=== PATIENT | male | born 1950 | race Caucasian/White ===

== ENCOUNTER 2017-08-27 09:49 | Emergency (ER) | payer MEDICARE, OTHER, SELFPAY ==
[2017-08-27 09:50] VITALS: BP 150/89; PULSE 89; RESP 18; TEMP 36.3; O2SAT 96; BMI 36.9
--- NOTE | 2017-08-27 10:20 | ED.URI ---
HPI - URI/Sore Throat General Chief Complaint: Upper Respiratory Symptoms Stated Complaint: COUGHING UP BLOOD Time Seen by Provider: 08/27/17 09:58 Source: patient Mode of arrival: ambulatory Limitations: no limitations History of Present Illness HPI Narrative: Patient presents to the emergency department today with a chief complaint of episodes of mild, small amounts of bright red flecks of blood in sputum for the past few days. He denies any chest pain or significant shortness of breath. He is not dizzy nor weak or lightheaded. MD Complaint: cough Onset (ago): day(s) Duration: intermittent Severity: mild Relieving factors: nothing Exacerbating factors: nothing Description of mucous: bloody Able to tolerate fluids by mouth: Yes Associated symptoms: denies other symptoms Treatments prior to arrival: none Related Data Home Medications Medication Instructions Recorded Confirmed [TUMERIC] #0 07/19/16 07/10/17 Previous Rx's Medication Instructions Recorded triamcinolone acetonide 1 grant TOPICAL QHS PRN #15 gm 12/05/16 tramadol 50 mg tablet 50 - 100 mg PO Q4-6H #180 tab 08/10/17 amoxicillin-pot clavulanate 1 tab PO BID #20 tab 08/27/17 [Augmentin] Allergies Allergy/AdvReac Type Severity Reaction Status Date / Time No Known Drug Allergies Allergy Verified 07/10/17 11:12 Review of Systems Review of Systems All systems reviewed & are unremarkable except as noted in HPI and below Constitutional Denies chills, Denies fever(s), Denies lethargy and Denies weakness Eyes Denies change in vision, Denies eye discharge, Denies irritation and Denies loss of vision ENT Ears, Nose, Mouth, and Throat: Denies change in voice, Denies neck pain and Denies sore throat Cardiovascular Denies chest pain, Denies irregular heart rhythm, Denies lightheadedness, Denies palpitations, Denies dyspnea, Denies dyspnea on exertion and Denies orthopnea Respiratory Denies cough, Reports hemoptysis, Denies dyspnea, Denies dyspnea on exertion and Denies wheezing Gastrointestinal Gastrointestinal: Denies abdominal pain, Denies change in bowel habits, Denies diarrhea, Denies nausea and Denies vomiting Genitourinary Denies hematuria, Denies flank pain, Denies urinary incontinence and Denies urinary urgency Musculoskeletal Denies neck pain Integumentary/Breasts Denies pruritus, Denies erythema, Denies rash and Denies wounds Neurologic Denies confusion, Denies loss of vision and Denies weakness Psychiatric Denies anxiety, Denies confusion, Denies depression, Denies homicidal ideation and Denies suicidal ideation Endocrine Denies palpitations Hematologic/Lymphatic Denies easy bruising Allergic/Immunologic Denies wheezing PFSH Social History Smoking Status: Current every day smoker Exam Narrative Exam Narrative: Pleasant 67-year-old male in no obvious distress Initial Vital Signs Initial Vital Signs: Vital Signs Temperature 97.3 F L 08/27/17 09:50 Pulse Rate 89 08/27/17 09:50 Respiratory Rate 18 08/27/17 09:50 Blood Pressure 150/89 H 08/27/17 09:50 Pulse Oximetry 96 08/27/17 09:50 Const General: cooperative and well developed Nutritional Appearance: well nourished Orientation: alert, awake, oriented x3 and not confused Eyes General: appearance normal, both eyes and all related structures Eyelids: eyelids normal Conjunctivae: conjunctivae normal Sclera: sclerae normal Pupils: PERRL EOM: EOM intact bilaterally Chest Chest: normal inspection of the chest Resp Effort & Inspection: normal respiratory effort Auscultation: diminished lung sounds and wheezes Cardio Rate: regular rate Rhythm: regular rhythm Heart Sounds: no click, no gallops, no murmurs and no rubs Pulses: normal peripheral pulses Back/Spine/Pelvis Back: No CVA tenderness Cervical Spine: cervical ROM normal and No pain with cervical ROM Thoracic/Lumbar Spine: thoracic and lumbar spine normal to inspection Neuro General: alert, oriented x3, gait normal and no focal motor deficits Speech: speech normal Course Orders Ordered: ED Orders 08/27/17 10:27 XR chest 2V Stat 08/27/17 10:55 Basic Metabolic Panel Stat Complete Blood Count AUTO DIFF Stat Prothrombin Time INR Stat Discontinued Medications Albuterol/Ipratropium (Duoneb) 3 ml INH NOW ONE Stop: 08/27/17 10:29 Last Admin: 08/27/17 10:42 Dose: 3 ml Reevaluation(s) Reevaluation #1: Extensive bedside discussion with patient about the importance of follow-up regarding his extensive smoking history and the presence of multiple nodules, raising the suspicion undiagnosed lung cancer. His chief concern is that in 10 days he wheeze for a trip for 3 months. I expressed, and stressed the importance of further evaluation prior to his departure and called his primary care provider to set up an appointment, they were looking into it but had not yet responded within the actual time. Vital Signs - 8 hr 08/27/17 09:50 Temperature 97.3 F L Pulse Rate 89 Respiratory Rate 18 Blood Pressure 150/89 H Pulse Oximetry 96 MDM - URI/Sore Throat Lab Data Result diagrams: 08/27/17 10:55 08/27/17 10:55 Lab Results 08/27/17 08/27/17 08/27/17 Range/Units 10:55 10:55 10:55 WBC 14.7 H (4.5-11.0) X10^3/uL RBC 4.52 (4.5-5.9) X10^6/uL Hgb 14.2 (13.5-17.5) g/dL Hct 42.9 (41-53) % MCV 94.8 (80-100) fL MCH 31.3 (26-34) PG MCHC 33.0 (30-36) % RDW 14.6 (11.6-14.8) % Plt Count 267 (150-400) X10^3/uL Neut % (Auto) 67.4 (50-75) % Lymph % (Auto) 19.5 L (25-40) % [place] % (Auto) 10.0 (3-14) % Eos % (Auto) 1.8 L (2-4) % Baso % (Auto) 1.3 (0-2) % Neut # (Auto) 9900 H (9629-9632) /uL PT 12.5 (10.1-12.7) SECONDS INR 1.2 (0.9-1.3) Sodium 141 (137-145) mmol/L Potassium 4.5 (3.4-5.1) mmol/L Chloride 100 (98-107) mmol/L Carbon Dioxide 35 H (22-32) mmol/L BUN 17 (9-20) mg/dL Creatinine 0.70 (0.66-1.25) mg/dL Estimated GFR > 60.0 (>60) mL/min BUN/Creatinine Ratio 24.3 H (6-22) Glucose 88 (80-110) mg/dL Calcium 9.3 (8.4-10.2) mg/dL Discharge Plan Departure Patient Disposition: Home, Self-Care Clinical Impression: Pneumonia, Multiple pulmonary nodules Discharge Date/Time: 08/27/17 12:10 Interventions: ED Discharge Assessment Last Done: 08/27/17 12:06 Instructions: DI for Pneumonia -- Adult Activity Restrictions/Additional Instructions: *You have been diagnosed with [ right lower lobe pneumonia and multiple pulmonary nodules ] *What to do: *Take medications as directed, your prescription has been electronically transmitted to [facility] in [facility] at your request *Follow up with your primary care provider AGNIESZKA to further characterize these nodules. In the setting of a smoker the concern is the possibility of lung cancer *Return to ER if you should have any new, worsening or concerning symptoms Prescriptions: New amoxicillin-pot clavulanate [Augmentin] 875-125 mg tablet 1 tab PO BID Qty: 20 RF: 0 No Action [TUMERIC] Qty: 0 RF: 0 triamcinolone acetonide 0.1 % cream 1 grant Topical QHS PRNQty: 15 RF: 2 tramadol 50 mg tablet 50 - 100 mg PO Q4-6H Qty: 180 RF: 0 Referrals: Kirsty Caballero DO [Primary Care Provider] -
--- NOTE | 2017-08-27 10:27 | DI.RAD.S_ITS ---
PROCEDURE: XR CHEST 2V INDICATIONS: SOB, hemoptysis TECHNIQUE: 2 views of the chest were acquired. COMPARISON: None. FINDINGS: Surgical changes and devices: None. Lungs and pleura: Small right-sided pleural effusion. Patchy opacity noted in the right lung base concerning for aspiration versus pneumonia. Nodules within the lungs bilaterally. Mediastinum: Mediastinal contours are normal. Heart size is normal. Bones and chest wall: No suspicious bony abnormalities. Soft tissues appear unremarkable. IMPRESSION: 1. Patchy opacity in the right lung base with small right sided pleural effusion concerning for aspiration versus pneumonia. 2. Bilateral lung nodules. Recommend CT scan of the chest with contrast when clinically feasible to exclude neoplastic process. Dictated by: Heaven Azevedo MD, PhD on 08/27/2017 at 10:56 Approved by: Heaven Azevedo MD, PhD on 08/27/2017 at 10:58
[2017-08-27] MEDS: ALBUTEROL/IPRATROPIUM 3 ML AMPUL INH (10:42)
--- NOTE | 2017-08-27 10:43 | PC.NURSE ---
lab called for draw
[2017-08-27 11:06] LABS: Add Manual Diff / Slide Review NO; Basophils Percent Auto 1.3 % (0-2); Eosinophils Percent Auto 1.8 % (2-4); Hematocrit 42.9 % (41-53); Hemoglobin 14.2 g/dL (13.5-17.5); Lymphocytes Percent Auto 19.5 % (25-40); Mean Corpuscular Hemoglobin 31.3 PG (26-34); Mean Corpuscular Volume 94.8 fL (80-100); Neutrophils Absolute Auto 9900 /uL (3000-5900); Neutrophils Percent Auto 67.4 % (50-75); Platelet Count 267 X10^3/uL (150-400); Red Blood Cell Count 4.52 X10^6/uL (4.5-5.9); Red Cell Distribution Width 14.6 % (11.6-14.8); White Blood Cell Count 14.7 X10^3/uL (4.5-11.0)
[2017-08-27 11:17] LABS: INR 1.2 (0.9-1.3); Prothrombin Time 12.5 SECONDS (10.1-12.7)
[2017-08-27 11:21] LABS: BUN Creatinine Ratio 24.3 (6-22); Blood Urea Nitrogen 17 mg/dL (9-20); Calcium 9.3 mg/dL (8.4-10.2); Carbon Dioxide 35 mmol/L (22-32); Chloride 100 mmol/L (98-107); Estimated Glomerular Filt Rate > 60.0 mL/min (>60); Glucose 88 mg/dL (80-110); HEMOLYSIS < 15 (0-50); Potassium 4.5 mmol/L (3.4-5.1); Sodium 141 mmol/L (137-145)
== END 2017-08-27 12:10 | disposition home or self-care (01) ==
PROVIDERS: Emergency Provider Emergency Medicine; PCP Family Medicine
DX: J18.9 Pneumonia, unspecified organism (principal); R91.8 Other nonspecific abnormal finding of lung field
CPT/HCPCS: 36415; 71046; 80048; 85025; 85610; 94640; 99282; 99284

== ENCOUNTER → 2017-09-06 10:09 | Outpatient (CLI) | payer MEDICARE, OTHER, SELFPAY ==
--- NOTE | 2017-09-06 10:32 | DI.CT.S_ITS ---
PROCEDURE: CT CHEST W CON INDICATIONS: lung nodule TECHNIQUE: After the administration of intravenous contrast, 5 mm thick sections acquired from the pulmonary apices to the posterior costophrenic angles. 7 mm thick coronal and sagittal MIP reformats were acquired. For radiation dose reduction, the following was used: automated exposure control, adjustment of mA and/or kV according to patient size. COMPARISON: [facility], CT, ABDOMEN/PELVIS WITH CONTRAST, 06/02/2013, 13:42. [facility], CR, XR CHEST 2V, 08/27/2017, 10:23. FINDINGS: Image quality: Excellent. Lungs and pleura: There are numerous bilateral pulmonary nodules ranging in size from several millimeters to 3.6 cm (largest mass at the lateral right lung base). There also is a malignant appearing right pleural effusion with enhancing peripheral pleural modules and subtle pleural enhancement and thickening. Central and peripheral airways are patent and normal in caliber. Mediastinum: Heart size is normal. No pericardial effusion. Definite mild to moderate mediastinal or hilar adenopathy by size criteria, involving each hilum, and the subcarinal space of the middle mediastinum, and the paratracheal space of the superior mediastinum. A hilar lymph nodes are larger on the right than the left. Thoracic aorta and central pulmonary arteries are normal in size. Esophagus is normal in caliber. No hiatal hernia. Bones and chest wall: No suspicious bony lesions. No vertebral body compression fractures. No axillary or supraclavicular adenopathy by size criteria. Thyroid gland appears normal where well visualized. Abdomen: Visualized upper abdominal solid organs appear normal on the left but there is a pattern of extensive hepatic malignancy, with multiple small and large masses, involving all hepatic segments and with the largest area of the mass measuring up to 13.6 cm at the right anterior and posterior hepatic lobes and extending to a small degree into the left medial hepatic segment peripherally. Upper abdominal bowel loops are normal in caliber. Note is made of a left adrenal mass measuring up to 1.9 cm, and several peritoneal masses the largest of which is at the anterior midline just to the left of the midline structures, ventral to the stomach. That mass measures up to 2.6 cm. IMPRESSION: 1. Extensive malignancy is present, with prominent pulmonary and hepatic metastatic disease but also evidence of a left adrenal mass and peritoneal masses partially visualized at the lower margin of this chest CT. 2. Recommend obtaining abdomen/pelvis staging CT scanning, to assist in establishing the etiology of these abnormalities and also to localize the potential safest site for biopsy. For example, if colon carcinoma is identified endoscopic biopsy would be recommended. Dictated by: James Lin M.D. on 09/06/2017 at 11:15 Approved by: James Lin M.D. on 09/06/2017 at 11:25
== END ==
PROVIDERS: PCP Family Medicine; Visit Provider Family Medicine
DX: R91.1 Solitary pulmonary nodule (principal); C78.00 Secondary malignant neoplasm of unspecified lung; C78.7 Secondary malignant neoplasm of liver and intrahepatic bile duct
CPT/HCPCS: 71260; Q9967

== ENCOUNTER → 2017-09-11 09:56 | Outpatient (CLI) | payer MEDICARE, OTHER, SELFPAY ==
[2017-09-11 11:05] LABS: Alanine Aminotransferase 88 IU/L (21-72); Albumin 3.8 g/dL (3.5-5.0); Albumin Globulin Ratio 1.1 (1.0-2.8); Alkaline Phosphatase 216 U/L (38-126); Aspartate Aminotransferase 83 IU/L (17-59); Bilirubin Total 0.8 mg/dL (0.2-1.3); Blood Urea Nitrogen 12 mg/dL (9-20); Calcium 9.3 mg/dL (8.4-10.2); Carbon Dioxide 36 mmol/L (22-32); Chloride 96 mmol/L (98-107); Estimated Glomerular Filt Rate > 60.0 mL/min (>60); Globulin 3.5 g/dL (1.7-4.1); Glucose 94 mg/dL (80-110); HEMOLYSIS < 15 (0-50); Potassium 5.3 mmol/L (3.4-5.1); Sodium 138 mmol/L (137-145); Total Protein 7.3 g/dL (6.3-8.2)
--- NOTE | 2017-09-11 11:07 | DI.CT.S_ITS ---
PROCEDURE: CT ABDOMEN PELVIS W CON INDICATIONS: Evaluatel for staging of cancer TECHNIQUE: After the administration of oral and intravenous contrast, 5 mm thick sections acquired from the diaphragms to the symphysis. 5 mm thick coronal and sagittal reformats were performed. For radiation dose reduction, the following was used: automated exposure control, adjustment of mA and/or kV according to patient size. COMPARISON: [facility], CT, IVP (ABD & PEL WWO CONTRAST), 08/16/2016, 10:16. FINDINGS: Image quality: Excellent. ABDOMEN: Lung bases: Multiple bibasilar pulmonary nodules are present, as seen on 18. The largest of the is in the right lateral costophrenic angle, measuring 40 mm. There is Heart size is normal. Solid organs: Liver is normal in size. Multiple hepatic masses are present, largest of which is in the right hepatic lobe, measuring 14.7 cm. Gallbladder is within normal limits. Biliary system is non-dilated. Pancreas enhances normally. Spleen is normal in size and enhancement. No right adrenal nodules. New left adrenal nodule measuring 18 mm. Kidneys are normal in size and enhancement, without hydronephrosis. Peritoneum and bowel: Stomach, small bowel, and colon loops are normal in caliber and wall thickness. No free fluid or air. Nodes and vessels: No retroperitoneal or mesenteric adenopathy. IVC is within normal limits. There is a 45 mm short axis infrarenal abdominal aortic aneurysm. Miscellaneous: No ventral hernias. PELVIS: Genitourinary: Multifocal micronodular thickening of the left aspect of the urinary bladder is present. Miscellaneous: No inguinal hernias or adenopathy. Bones: No suspicious bony lesions. No vertebral body compression fractures. IMPRESSION: 1. New severe hepatic and pulmonary metastatic disease. 2. Small right pleural effusion. 3. Left adrenal metastasis. 4. Nodular thickening of the left urinary bladder, possibly neoplastic. 5. Abdominal aortic aneurysm. Dictated by: Sherry Villafuerte M.D. on 09/11/2017 at 16:13 Approved by: Sherry Villafuerte M.D. on 09/11/2017 at 16:22
== END ==
PROVIDERS: PCP Family Medicine; Visit Provider Family Medicine
DX: C78.00 Secondary malignant neoplasm of unspecified lung (principal); C78.7 Secondary malignant neoplasm of liver and intrahepatic bile duct; J90 Pleural effusion, not elsewhere classified; I71.4 Abdominal aortic aneurysm, without rupture; C77.9 Secondary and unspecified malignant neoplasm of lymph node, unspecified; Z86.19 Personal history of other infectious and parasitic diseases
CPT/HCPCS: 36415; 74177; 80053; 87522; Q9967

== ENCOUNTER → 2017-09-20 10:47 | Outpatient (CLI) | payer MEDICARE, OTHER, SELFPAY ==
--- NOTE | 2017-09-20 10:49 | DI.NM.S_ITS ---
PROCEDURE: NM BONE SCAN WHOLE BODY RADIOPHARMACEUTICAL: 21.6 mCi Tc-99m MDP IV. INDICATIONS: LUNG MASS TECHNIQUE: Delayed whole-body scintigrams were obtained approximately 3-4 hours after intravenous injection of radiotracer. Anterior and posterior views were acquired from vertex to feet. COMPARISON: [facility], CT, CT ABDOMEN PELVIS W CON, 09/11/2017, 11:03. FINDINGS: There is a focal uptake in the proximal right femoral shaft. No lesions are identified in skull, sternum, clavicles, scapulae, ribs, bony pelvis, and visualized shafts of the long bones. There is increased uptake in cervical, thoracic and lumbar spine with distribution indistinguishable from degenerative disc and facet disease; early metastasis to spine could be obscured by degenerative changes. There are foci of increased periarticular activity involving shoulders bilaterally and hips bilaterally, compatible with degenerative/arthritic changes. There is tracer infiltration in the right antecubital fossa. IMPRESSION: A focal uptake in the proximal right femoral shaft, which could represent early osseous metastasis. Recommend radiographic correlation. Dictated by: Cuca Cárdenas M.D. on 09/20/2017 at 17:36 Transcribed by: KANDI on 09/20/2017 at 17:44 Approved by: Cuca Cárdenas M.D. on 09/21/2017 at 18:32
== END ==
PROVIDERS: PCP Family Medicine; Visit Provider Internal Medicine Hematology & Oncology
DX: R91.8 Other nonspecific abnormal finding of lung field (principal)
CPT/HCPCS: 78306; A9503

== ENCOUNTER → 2017-09-21 13:26 | Outpatient (CLI) | payer MEDICARE, OTHER, SELFPAY ==
--- NOTE | 2017-09-21 13:28 | DI.MRI.S_ITS ---
PROCEDURE: MR BRAIN (IAC) WWO CON INDICATIONS: LUNG MASS TECHNIQUE: Noncontrast sagittal T1 spin echo, axial FLAIR, axial gradient echo, axial diffusion and ADC through the brain. Axial thin-slice 3D CISS, coronal TruFISP, axial T1 spin echo with fat saturation through the internal auditory canals. After the administration of contrast, thin slice axial and coronal T1 spin echo with fat saturation through the internal auditory canals, and axial T1 spin echo with fat saturation through the brain. COMPARISON: , CT, CT CHEST W CON, 09/06/2017, 10:34. FINDINGS: Image quality: Excellent. Cerebellopontine angles: No cerebellopontine angle masses. Inner ear structures appear normally formed. No suspicious enhancement in the internal auditory canal or along the course of the 7th cranial nerve. CSF spaces: Ventricles are normal in size and shape. No extra-axial fluid collections. Basal cisterns are patent. Brain: No intracranial bleeds or mass effects. Langley-white matter interface is intact. No abnormal intracranial enhancement. Diffusion weighted images demonstrate no acute ischemic insults. Brainstem appears normal. Normal intravascular flow voids are present. On T1-weighted series 5/image 11, there is a 5 mm round signal loss that is indeterminate but could represent a calcified aneurysm. Skull and face: Calvarial marrow signal is normal. Orbits appear normal. Sinuses: Sinuses and mastoids are clear. IMPRESSION: 1. No evidence of metastatic brain disease. 2. No findings to suggest acoustic neurinoma. 3. Degree of volume loss is compatible with age. 4. Possibility of a 5 mm aneurysm at the right internal carotid bifurcation is considered. Noncontrast MRA imaging of the brain is recommended. Dictated by: Sourav Mirza M.D. on 09/21/2017 at 15:49 Approved by: Sourav Mirza M.D. on 09/21/2017 at 15:59
== END ==
PROVIDERS: PCP Family Medicine; Visit Provider Internal Medicine Hematology & Oncology
DX: C34.90 Malignant neoplasm of unspecified part of unspecified bronchus or lung (principal); R91.8 Other nonspecific abnormal finding of lung field
CPT/HCPCS: 70553

== ENCOUNTER → 2017-09-24 14:49 | Outpatient (CLI) | payer MEDICARE, OTHER, SELFPAY ==
[2017-09-24 16:31] LABS: INR 1.3 (0.9-1.3); Prothrombin Time 13.8 SECONDS (10.1-12.7)
[2017-09-24 16:36] LABS: Add Manual Diff / Slide Review NO; Basophils Percent Auto 1.2 % (0-2); Eosinophils Percent Auto 2.7 % (2-4); Hematocrit 37.1 % (41-53); Hemoglobin 12.3 g/dL (13.5-17.5); Lymphocytes Percent Auto 18.3 % (25-40); Mean Corpuscular HGB Conc 33.2 % (30-36); Mean Corpuscular Hemoglobin 31.2 PG (26-34); Mean Corpuscular Volume 94.1 fL (80-100); Monocytes Percent Auto 10.4 % (3-14); Neutrophils Absolute Auto 10200 /uL (3000-5900); Neutrophils Percent Auto 67.4 % (50-75); Platelet Count 234 X10^3/uL (150-400); Red Blood Cell Count 3.95 X10^6/uL (4.5-5.9); Red Cell Distribution Width 14.9 % (11.6-14.8); White Blood Cell Count 15.2 X10^3/uL (4.5-11.0)
[2017-09-24 17:17] LABS: Alanine Aminotransferase 81 IU/L (21-72); Albumin 3.6 g/dL (3.5-5.0); Alkaline Phosphatase 231 U/L (38-126); Aspartate Aminotransferase 85 IU/L (17-59); Blood Urea Nitrogen 21 mg/dL (9-20); Carbon Dioxide 32 mmol/L (22-32); Chloride 97 mmol/L (98-107); Estimated Glomerular Filt Rate > 60.0 mL/min (>60); Globulin 3.5 g/dL (1.7-4.1); Glucose 82 mg/dL (80-110); HEMOLYSIS < 15 (0-50); Potassium 4.6 mmol/L (3.4-5.1); Sodium 137 mmol/L (137-145); Total Protein 7.1 g/dL (6.3-8.2)
[2017-09-24 17:33] LABS: Lactate Dehydrogenase 2322 U/L (313-618)
[2017-09-24 17:49] LABS: Carcinoembryonic Antigen 1.1 ng/mL (0.1-3.0)
== END ==
PROVIDERS: PCP Family Medicine; Visit Provider Internal Medicine Hematology & Oncology
DX: R91.8 Other nonspecific abnormal finding of lung field (principal); C34.90 Malignant neoplasm of unspecified part of unspecified bronchus or lung; Z01.812 Encounter for preprocedural laboratory examination
CPT/HCPCS: 36415; 80053; 82378; 82728; 83615; 85025; 85610

== ENCOUNTER 2017-09-25 09:29 | Day surgery (SDC) | payer MEDICARE, OTHER, SELFPAY ==
[2017-09-25] VITALS (15 sets, daily range): BP systolic 98–140; BP diastolic 51–89; PULSE 72–84; RESP 15–18; TEMP 35.9–36.6; O2SAT 91–98
--- NOTE | 2017-09-25 | PATH_ITS ---
[facility] Accession Number: [id number] . 01 Material submitted: . RIGHT HEPATIC LOBE MASS . 01 Clinical history: . NEEDLE CORE BIOPSY . 02 Diagnosis: Liver, Right Lobe Mass, Core Needle Biopsy: Poorly differentiated malignant neoplasm. Please see comment. JRL/09/28/2017 . 02 Comment: A diagnosis of non-small cell carcinoma, is favored, however immunohistochemical stains are pending to confirm the morphologic impression. The results will be reported as an addendum. . Dr. Gorman called Dr. Avalos's office on 09/27/17. Dr. Gorman gave preliminary results to Rosi in Dr. Arboleda office on 09/28/2017. As part of routine quality nurse, Dr. Esparza and Dr. Kang also reviewed this case and agree with the diagnosis. . 02 Electronically signed: . Rosi Gorman MD, Pathologist NPI- [id number] . 01 Gross description: . Received in formalin are three core biopsies of clear colorless glistening tissue (each approximately 2.0 cm long with a diameter less than 0.1 cm). Entirely submitted intact in cassette A1. ([id number]) /MRV . 02 Pathologist provided ICD-10: C78.7 . 02 CPT . 142745 Performed at: 01 [facility] [address] [id number] MD Ari Bolivar MD Phone: [phone] Performed at: 02 [facility] [place] [address] [place], [place] [id number] MD Jassi Brooks MD Phone: [phone]
--- NOTE | 2017-09-25 10:08 | SUR.HOLD ---
PT STATES HE IS RECOVERING FROM WALKING PNEUMONIA - RIGHT LOWER LUNG, HAS TAKEN A FULL COURSE OF ANTIBIOTICS FINISHING 10 DAYS AGO. LUNG SOUNDS VERY DIMINISHED IN RIGHT LOWER LOBE, PULSE OX 93-95% ON ROOM AIR
[2017-09-25 10:49] LABS: INR 1.3 (0.9-1.3)
--- NOTE | 2017-09-25 11:42 | DI.CT.S_ITS ---
PROCEDURE: CT BIOPSY LIVER PREPROCEDURE HISTORY AND PHYSICAL EXAM: No significant changes from the oncology consult Dr. Cristopher Avalos's History and Physical exam dated 09/12/2017. Patient has multiple hepatic and pulmonary masses. INDICATIONS: LIVER MASS TECHNIQUE: The indications, alternatives, benefits, risks, and possible complications of the procedure were communicated to the patient. Informed written consent from the patient was obtained and placed in the chart. Continuous EKG and hemodynamic monitoring was started by trained personnel. The patient was brought to the CT suite and senior interior designer spiral CT imaging was performed with localization grid. The appropriate site for percutaneous access to the biopsy target was marked, was prepped and draped sterilely, and was infused with local anaesthesia. Under CT guidance, a core biopsy trocar and needle set was advanced to the biopsy target, and specimen(s) were obtained. The trocar and needle were then removed, and the patient was sent for post-procedure monitoring. COMPARISON: CT of the abdomen and pelvis with IV contrast 09/11/2017. FINDINGS: Biopsy site: Anterior right hepatic lobe hypoattenuating mass in the right upper quadrant of the abdomen. Needle: 20 gauge biopsy needle with introducer trocar. Number of passes: 4. Medications: 1% lidocaine for local anaesthesia. IV Versed for conscious sedation for 15 minutes from 11:15 AM to 11:30 AM on 09/25/17 (see nursing record). Complications: None. IMPRESSION: Successful CT-guided biopsy of the hypoattenuating mass in the anterior right hepatic lobe. Dictated by: Radhames Hooks M.D. on 09/25/2017 at 12:11 Approved by: Radhames Hooks M.D. on 09/25/2017 at 15:42
--- NOTE | 2017-09-25 11:53 | SUR.PHASEII ---
PT BACK FROM IR, REPORT FROM SHAAN LEMUS. REFUSED OFFER OF CLEAR LIQUIDS/FOOD, ICE CHIPS LEFT AT BEDSIDE.
--- NOTE | 2017-09-25 12:31 | SUR.PHASEII ---
pt resting quietly, reading his book, continues to lie on his back, weight remains on procedure site, site dressing remains clean and dry, no redness or swelling noted.
--- NOTE | 2017-09-25 14:54 | SUR.PHASEII ---
pt sitting up talking with , lab here for blood draw. pt denies any pain or discomfort, dressing remains dry and intact.
[2017-09-25 15:02] LABS: Hematocrit 37.1 % (41-53)
--- NOTE | 2017-09-25 15:18 | SUR.PHASEII ---
DR FOX NOTIFIED OF PTS HCT OF 37.1. WILL BE OVER TO SPEAK WITH PT. PT DENIES ANY PAIN OR DISCOMFORT, TOLERATING COFFEE AND SNACKS
--- NOTE | 2017-09-25 15:45 | SUR.PHASEII ---
DR FOX IN TO SEE AND SPEAK WITH PT AND HIS , OK TO D/C PT HOME PER DR FOX. INSTRUCTIONS REVIEWED WITH PT AND WITH VERBALIZED UNDERSTANDING. DRESSING CLEAN AND DRY, NO REDNESS OR SWELLING NOTED. PT D/C HOME
[2017-09-25] MEDS: MIDAZOLAM 2 MG/2 ML VIAL IV (16:49)
== END 2017-09-25 15:40 ==
LOC: OR 09:30
PROVIDERS: PCP Family Medicine; Visit Provider Internal Medicine Hematology & Oncology
PROC: BF25ZZZ Computerized Tomography (CT Scan) of Liver (ICD-10-PCS; CPT 47000; principal; 2017-09-25 10:30)
DX: C78.7 Secondary malignant neoplasm of liver and intrahepatic bile duct (principal); F17.210 Nicotine dependence, cigarettes, uncomplicated
CPT/HCPCS: 36415; 47000; 77012; 85014; 85610; 88307; 88341; 88342; J2250

== ENCOUNTER → 2017-09-27 13:22 | Outpatient (CLI) | payer MEDICARE, OTHER, SELFPAY ==
--- NOTE | 2017-09-27 13:26 | DI.RAD.S_ITS ---
PROCEDURE: XR FEMUR RT MIN 2V INDICATIONS: metastatic cancer. bone scan shows focal uptake right femur TECHNIQUE: 4 views of the femur were acquired. COMPARISON: [place], [place], [place] BONE SCAN WHOLE BODY, 09/20/2017, 14:24. FINDINGS: Bones: No fractures or dislocations. There is a 1.3 cm diameter oval radiolucency in the proximal one third of the right femoral shaft, corresponding to the focus of abnormal tracer uptake on nuclear bone scan and suspect for metastatic lesion Soft tissues: No suspicious soft tissue calcifications or masses. IMPRESSION: Lytic lesion proximal femoral diaphysis, presumed metastasis. Dictated by: Sourav Mirza M.D. on 09/27/2017 at 15:06 Approved by: Sourav Mirza M.D. on 09/27/2017 at 15:08
== END ==
PROVIDERS: PCP Family Medicine; Visit Provider Internal Medicine Hematology & Oncology
DX: R91.8 Other nonspecific abnormal finding of lung field (principal); M89.9 Disorder of bone, unspecified
CPT/HCPCS: 73552; 99213

== ENCOUNTER 2017-09-28 10:05 | Day surgery (SDC) | payer MEDICARE, OTHER, SELFPAY ==
[2017-09-28] VITALS (8 sets, daily range): BP systolic 135–182; BP diastolic 70–91; PULSE 78–93; RESP 15–20; TEMP 36.3–37.8; O2SAT 90–95; BMI 35.6
--- NOTE | 2017-09-28 | DI.RAD.S_ITS ---
PROCEDURE: XR CHEST 1V INDICATIONS: Portocatheter placement IN PACU TECHNIQUE: One view of the chest was acquired. COMPARISON: [facility], [place], XR CHEST 2V, 08/27/2017, 10:23. FINDINGS: Surgical changes and devices: Left-sided Port-A-Cath is present with distal tip projecting over the mid/distal SVC. Lungs and pleura: Increased interstitial pulmonary markings are present. There is blunting the costophrenic angles bilaterally, right greater than left. Mediastinum: Mediastinal contours appear normal. Heart size is normal. Bones and chest wall: No suspicious bony lesions. Overlying soft tissues appear unremarkable. IMPRESSION: Significantly increased pulmonary vascularity with effusions consistent with edema. Developing airspace disease such as pneumonia/atelectasis cannot be excluded. Dictated by: Gabbie Jennings M.D. on 09/28/2017 at 12:44 Approved by: Gabbie Jennings M.D. on 09/28/2017 at 13:03
[2017-09-28] MEDS: LACTATED RINGERS 1,000 ML 42 ML IV (10:15)
--- NOTE | 2017-09-28 11:17 | PM.HP.1 ---
History of Present Illness Date Patient Seen: 09/28/17 Time Patient Seen: 11:17 Chief complaint: [id number] PORTACATH PLACEMENT Narrative: Patient is a 67 yo male with metastatis likely lung ca. Pending biospy results from liver. Referred from Dr Avalos for single lumen portocath. Seen yesterday in clinic, no changes in PM,S,Meds,social history. Patient History Family & Social History Social History: household members spouse Tobacco & Substance use: Smoking Status Former smoker Substance Use Type does not use Meds Home Medications Medication Instructions Recorded Confirmed Type [TUMERIC] 1 tab PO QAM #0 07/19/16 09/12/17 History azithromycin 250 mg tablet See Label Instructions PO .COMPLEX 09/07/17 09/25/17 Rx #6 tab tramadol 50 mg tablet 50 - 100 mg PO Q4-6H #180 tab 09/07/17 09/27/17 Rx amoxicillin-pot clavulanate 09/25/17 History triamcinolone acetonide 1 grant TOPICAL QHS PRN 09/25/17 History Allergies Allergy/AdvReac Type Severity Reaction Status Date / Time No Known Drug Allergies Allergy Verified 09/27/17 12:54 Review of Systems Review of Systems All systems reviewed & are unremarkable except as noted in HPI and below Exam Vital Signs (past 8 hours): - 09/28/17 10:24 Temperature 97.4 F L Pulse Rate 83 Respiratory Rate 16 Blood Pressure 138/83 H Pulse Oximetry 93 Oxygen Delivery Method Heated High Flow Narrative Exam Narrative: Pleaant interactive seen with Jennifer his Lungs clear CV reg Abdo soft CHUNG Objective Labs Labs: Labs reviewed Platelets normal Assessment & Plan Plan: Assessment/Plan Narrative: R handed male with need for single lumen port for chemotherapy. Confirmed risks and benefits. Plan to keep dry with sterile bandage for 2-3 days. R sided placement only if not able to place on left. NO bathing or submersion in pool or swimming for 2 weeks. He has pain meds at home.
--- NOTE | 2017-09-28 11:23 | P.OP_ITS ---
Operative Date/Time/Diagnoses Date of procedure: 09/28/17 Time of procedure: 12:21 Pre-op diagnosis: Metastatic carcinoma Post-op diagnosis: same Procedure & Clinicians Procedure: Placement of single lumen portocath in left internal jugular vein with ultrasound guidance. Surgeon: Perry Dorsey Click Yes if Unassisted: No Anesthesia Type: General Operative Notes Findings: Standard single lumen portocath placed into IJ with ultrasound guidance and flouroscopic guidance. Fluoro showed catheter going into R IJ and with compression of R IJ and re-feed of wire, the catheter was directed into the cavoatrial junction. Closure Type: primary Specimen(s): none sent Implants & Drains: Portocatheter Applied: catheter Estimated Blood Loss (mL): 15 Blood products transfused: none Procedure in detail: After informed consent was obtained with the patient and his including but not limited to risks of pneumothorax, bleeding, injury to the veins or arteries including the carotid artery infection and the signs and symptoms of infection the need to return for immediate removal of Port-A- Cath or antibiotics as well as postoperative care of the Port-A-Cath and keeping the area clean and dry. The patient was taken to the operating room where he was positioned on the operating room table and underwent LMA anesthesia. Safety time-out was completed. Local anesthetic was infiltrated after appropriate anatomic marking of the left neck region in the left arm had been tucked and the head was turned to the right. Using ultrasound guidance the left internal jugular vein was identified and a 25 gauge needle was used to access the vein this needle was removed and an 18 gauge needle was placed into the vein under ultrasound guidance and guide wire was then placed into the internal jugular vein and confirmed in appropriate position with fluoroscopy and the needle was removed. Two finger breaths below the clavicle a 4 cm incision was made transversely and subcutaneous pocket was created for the port. The catheter was now tunneled from the pocket using the included tunneler up above the clavicle to the exit site of the wire. This was kept off the skin and held in place. Under fluoroscopic guidance the dilator was now placed and subsequently the break- away sheath was placed into the left internal jugular vein and the catheter was fed into the internal jugular vein having been previously flushed with saline. Under fluoroscopy the catheter was now seen going up the right internal jugular vein despite multiple position maneuvers. Multiple attempts to have the catheter for go down towards the cavoatrial junction were not successful. I then pulled the catheter out of the pocket back to the wire exit site and refed the wire down the catheter. I then asked the anesthesiologist to occlude the right internal jugular vein which allowed us to feed the wire and catheter combination down the cavoatrial junction. I then removed the wire and confirmed that the catheter had in fact stayed down toward the cavoatrial junction. I then placed the tunneler retrograde back up towards the catheter and re-tunneled the catheter back to the pocket and affixed the port and placed the port into the subcutaneous pocket. The port and the catheter with and checked for excellent flush and draw and were then flushed with heparin saline. 3-0 Vicryl was then used in a running fashion to close the Port-A-Cath pocket. 4 -0 Biosyn was used to close the skin in a running fashion with skin glue used on the skin single interrupted suture was used at the access site at the IJ and skin glue was also used to seal the skin there are no complications the patient tolerated the procedure well chest x-ray in the PACU showed no evidence of pneumothorax or hemothorax with good placement of the port and the catheter at the cavoatrial junction. Complications: none Condition: stable Disposition: PACU Plan for aftercare: home with appropriate instructions Follow up with Dr Avalos. OK to use the Port CXR was normal.
[2017-09-28] MEDS: CEFAZOLIN 2 GM/100 ML FROZ.PIGGY IV (11:31)
[2017-09-28] MEDS: HEPARIN 5,000 UNIT, SODIUM CHLORIDE 0.9% 50 ML IV (12:11)
[2017-09-28] MEDS: BUPIVACAINE 0.25% W/ EPI VIAL 50 ML INJ (12:12)
== END 2017-09-28 13:20 | disposition home or self-care (01) ==
PROVIDERS: PCP Family Medicine; Visit Provider Surgery
PROC: (CPT 36561; principal; 2017-09-28 11:15)
DX: Z45.2 Encounter for adjustment and management of vascular access device (principal)
CPT/HCPCS: 36561; 71045; 76000; 93005; C1788; J0690; J1644; J2405; J2704; J3010

== ENCOUNTER 2017-11-25 08:27 | Emergency (ER) | payer MEDICARE, OTHER, SELFPAY ==
[2017-11-25] VITALS (25 sets, daily range): BP systolic 107–141; BP diastolic 52–90; PULSE 91–102; RESP 16–35; TEMP 36.4–37.1; O2SAT 89–100
--- NOTE | 2017-11-25 09:20 | ED_ITS ---
HPI - GI Bleed General Chief complaint: Abdominal Pain Stated complaint: RECTAL BLEEDING, EDEMA Time Seen by Provider: 11/25/17 09:05 Source: patient and family () Limitations: no limitations History of Present Illness HPI Narrative: This is a 67-year-old gentleman who comes to the emergency department with complaint of fatigue, weakness, shortness of breath, rectal bleeding and swelling in his lower extremities. 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 He had his last chemo treatment about 4 days ago. The prior treatment he had similar symptoms and had rectal bleeding, he ended up receiving blood which improved his symptoms significantly and his bleeding had stopped. It sounds like his platelets and his blood count were both low at that time. Patient states that this is about the same time frame is his last chemo. I he noticed bright red blood in his stool this morning. it did make the water in the toilet completely red but he could see through the water. He did not see any clots. Has not had any syncope , he does feel like he has a lot slower moving around. He is not really having any chest pain or pressure. He has had a little bit of abdominal pain but not severe. He has had nausea but no vomiting. His nausea is typical with his current treatments. He has not had any fevers. He has had increased swelling and Dr. Vance his oncologist gave him Lasix which did help. Related Data Home Medications Medication Instructions Recorded Confirmed triamcinolone acetonide 1 grant TOPICAL QHS PRN 09/25/17 11/14/17 polyethylene glycol 3350 [Miralax] 1.5 g/kg PO DAILY 11/14/17 11/14/17 Cbd Cannibus 1 constantine PO 3-4XD PRN 11/21/17 11/21/17 Previous Rx's Medication Instructions Recorded ondansetron [Zuplenz] 8 mg PO Q8-12H PRN 30 Days #20 ea 10/31/17 trazodone 100 mg PO ONCE HS PRN 30 Days #30 10/31/17 tab tramadol 50 mg tablet 50 - 100 mg PO Q4-6H #180 tab 11/02/17 tramadol 50 mg PO Q4-6H PRN 30 Days #240 tab 11/06/17 furosemide 40 mg PO DAILY 30 Days #30 tab 11/21/17 Allergies Allergy/AdvReac Type Severity Reaction Status Date / Time No Known Drug Allergies Allergy Verified 09/27/17 12:54 Review of Systems Review of Systems All systems reviewed & are unremarkable except as noted in HPI and below Constitutional Reports fatigue and Denies fever(s) Cardiovascular Denies chest pain, Denies syncope, Reports edema (b/l lower extremities), Denies irregular heart rhythm, Denies lightheadedness, Denies palpitations, Denies dyspnea, Reports dyspnea on exertion and Denies orthopnea Respiratory Denies cough, Denies dyspnea, Reports dyspnea on exertion and Denies wheezing Gastrointestinal Gastrointestinal: Reports abdominal pain, Denies melena, Reports hematochezia, Denies change in bowel habits, Denies diarrhea, Reports nausea and Denies vomiting Genitourinary Denies hematuria, Denies flank pain, Denies urinary incontinence, Denies urinary urgency and Denies other (hematuria) Neurologic Denies syncope Endocrine Reports fatigue and Denies palpitations Hematologic/Lymphatic Reports as per HPI Allergic/Immunologic Denies wheezing [facility] Social History household members: spouse Smoking Status: Former smoker Exam Initial Vital Signs Initial Vital Signs: Vital Signs Temperature 98.4 F 11/25/17 08:30 Pulse Rate 102 H 11/25/17 08:30 Respiratory Rate 18 11/25/17 08:30 Blood Pressure 135/81 11/25/17 08:30 Pulse Oximetry 96 11/25/17 08:30 Const General: cooperative, well developed, No diaphoretic and other ( Pale) Nutritional Appearance: well nourished and obese Orientation: alert, awake, oriented x3 and not confused Eyes Conjunctivae: conjunctivae normal ( no conjunctival pallor) Chest Chest: normal inspection of the chest ( the patient does have a port on the left side of his chest) Resp Effort & Inspection: normal respiratory effort, able to speak in complete sentences, no respiratory distress and no use of accessory muscles Auscultation: clear to auscultation bilaterally, no rales, no rhonchi and no wheezes Cardio Rate: regular rate Rhythm: regular rhythm Heart Sounds: no click, no gallops, no murmurs and no rubs Pulses: normal peripheral pulses GI Inspection: non-distended Palpation: soft, no hepatosplenomegaly, No guarding, No pulsatile mass and No tender Auscultation: normal bowel sounds Skin General: No ecchymosis, No petechiae and pallor Neuro General: alert, oriented x3, gait normal and no focal motor deficits Cranial Nerves: CN's II-XI intact bilaterally Cognition: normal cognition Speech: speech normal Extrem Right lower extremity: edema Details: 2+ Left lower extremity: edema Details: 2+ Course Orders Ordered: ED Orders 11/25/17 12:07 Urine Microscopic Stat Discontinued Medications Furosemide (Lasix) 40 mg IV NOW ONE Stop: 11/25/17 11:00 Last Admin: 11/25/17 11:33 Dose: 40 mg Ondansetron HCl (Zofran) 4 mg IV NOW ONE Stop: 11/25/17 09:21 Last Admin: 11/25/17 09:46 Dose: 4 mg Pantoprazole Sodium (Protonix) 40 mg IV NOW ONE Stop: 11/25/17 09:21 Last Admin: 11/25/17 09:46 Dose: 40 mg Consultations Consultation #1: Dr. Hernandez from Oncology discussed patient's lab changes, his vital signs have been appropriate here and he does not seem to be in cardiac failure or respiratory failure. He states that if everything continues to go well after the 2 units of packed red blood cells in the department they can follow up with him tomorrow in the office here in [place]. He asked that the patient calls in the morning 1st thing to set up an exact time. Time: 11:27 Vital Signs - 8 hr 11/25/17 11:12 11/25/17 11:30 11/25/17 11:47 Temperature 98.3 F Pulse Rate 93 H 93 H 92 H Respiratory Rate 29 H 26 H 18 Blood Pressure 122/68 Blood Pressure [Left Arm] 117/69 122/68 Pulse Oximetry 100 99 11/25/17 11:55 11/25/17 12:00 11/25/17 12:03 Temperature 98.6 F Pulse Rate 94 H 92 H 91 H Respiratory Rate 20 29 H 26 H Blood Pressure 120/70 Blood Pressure [Left Arm] 124/74 141/79 H Pulse Oximetry 98 100 11/25/17 12:15 11/25/17 12:30 11/25/17 13:00 Temperature 98.1 F 98.6 F Pulse Rate 97 H 96 H 95 H Respiratory Rate 24 26 H 26 H Blood Pressure Blood Pressure [Left Arm] 136/72 122/64 121/72 Pulse Oximetry 98 99 11/25/17 13:54 11/25/17 13:55 11/25/17 14:30 Temperature 98.5 F Pulse Rate 98 H 94 H Respiratory Rate 26 H 30 H Blood Pressure Blood Pressure [Left Arm] 107/52 L 122/68 Pulse Oximetry 89 L 97 98 11/25/17 14:36 11/25/17 14:56 11/25/17 15:05 Temperature 98.6 F 98.6 F Pulse Rate 96 H 97 H 93 H Respiratory Rate 24 24 28 H Blood Pressure 122/68 112/68 Blood Pressure [Left Arm] 122/68 Pulse Oximetry 99 11/25/17 15:10 11/25/17 15:11 11/25/17 16:01 Temperature 98.7 F 97.5 F L Pulse Rate 96 H 94 H 97 H Respiratory Rate 26 H 28 H 24 Blood Pressure 119/65 118/66 120/90 Blood Pressure [Left Arm] Pulse Oximetry 11/25/17 16:03 11/25/17 16:30 11/25/17 17:00 Temperature 98.6 F Pulse Rate 96 H 92 H 96 H Respiratory Rate 25 H 35 H Blood Pressure 113/56 L Blood Pressure [Left Arm] 120/90 126/69 115/60 Pulse Oximetry 94 98 92 11/25/17 17:09 11/25/17 17:13 11/25/17 18:08 Temperature 98.7 F 98.6 F Pulse Rate 97 H 96 H 91 H Respiratory Rate 30 H 32 H 16 Blood Pressure 113/56 L 114/67 Blood Pressure [Left Arm] 115/60 Pulse Oximetry 92 94 MDM - GI Bleed Lab Data Attestation: I reviewed the patient's lab results. Result diagrams: 11/25/17 09:30 11/25/17 09:30 Lab Results 11/25/17 11/25/17 11/25/17 Range/Units 09:30 09:30 09:30 WBC 2.8 L (4.5-11.0) X10^3/uL RBC 2.26 L (4.5-5.9) X10^6/uL Hgb 7.5 L (13.5-17.5) g/dL Hct 22.7 L (41-53) % MCV 100.4 H (80-100) fL MCH 33.1 (26-34) PG MCHC 33.0 (30-36) % RDW 21.5 H (11.6-14.8) % Plt Count 95 L (150-400) X10^3/uL Neut % (Auto) 54.1 (50-75) % Lymph % (Auto) 36.4 (25-40) % [place] % (Auto) 5.6 (3-14) % Eos % (Auto) 3.1 (2-4) % Baso % (Auto) 0.8 (0-2) % Neut # (Auto) 1500 L (1785-6641) /uL RBC Morphology Not Reportable Hypochromasia 2+ H Anisocytosis 2+ H PT 17.7 H (10.1-12.7) SECONDS INR 1.6 H (0.9-1.3) APTT 30 (26.4-36.2) SECONDS Sodium 138 (137-145) mmol/L Potassium 3.8 (3.4-5.1) mmol/L Chloride 95 L (98-107) mmol/L Carbon Dioxide 39 H (22-32) mmol/L BUN 25 H (9-20) mg/dL Creatinine 0.50 L (0.66-1.25) mg/dL Estimated GFR > 60.0 (>60) mL/min BUN/Creatinine Ratio 50.0 H (6-22) Glucose 100 (80-110) mg/dL Calcium 7.5 L (8.4-10.2) mg/dL Total Bilirubin 2.3 H (0.2-1.3) mg/dL AST 26 (17-59) IU/L ALT 45 (21-72) IU/L Alkaline Phosphatase 113 (38-126) U/L Troponin I (0.01-0.034) ng/mL Total Protein 5.3 L (6.3-8.2) g/dL Albumin 2.2 L (3.5-5.0) g/dL Globulin 3.1 (1.7-4.1) g/dL Albumin/Globulin Ratio 0.7 L (1.0-2.8) Urine RBC (0-5/HPF) Urine WBC (0-5/HPF) Urine Bacteria (None) Hyaline Casts (None) Urine Mucus (Negative) Ur Culture Indicated? Micro UA Comment Blood Type Antibody Screen Crossmatch 11/25/17 11/25/17 11/25/17 Range/Units 09:30 09:30 12:07 WBC (4.5-11.0) X10^3/uL RBC (4.5-5.9) X10^6/uL Hgb (13.5-17.5) g/dL Hct (41-53) % MCV (80-100) fL MCH (26-34) PG MCHC (30-36) % RDW (11.6-14.8) % Plt Count (150-400) X10^3/uL Neut % (Auto) (50-75) % Lymph % (Auto) (25-40) % [place] % (Auto) (3-14) % Eos % (Auto) (2-4) % Baso % (Auto) (0-2) % Neut # (Auto) (6739-6540) /uL RBC Morphology Hypochromasia Anisocytosis PT (10.1-12.7) SECONDS INR (0.9-1.3) APTT (26.4-36.2) SECONDS Sodium (137-145) mmol/L Potassium (3.4-5.1) mmol/L Chloride (98-107) mmol/L Carbon Dioxide (22-32) mmol/L BUN (9-20) mg/dL Creatinine (0.66-1.25) mg/dL Estimated GFR (>60) mL/min BUN/Creatinine Ratio (6-22) Glucose (80-110) mg/dL Calcium (8.4-10.2) mg/dL Total Bilirubin (0.2-1.3) mg/dL AST (17-59) IU/L ALT (21-72) IU/L Alkaline Phosphatase (38-126) U/L Troponin I < 0.012 (0.01-0.034) ng/mL Total Protein (6.3-8.2) g/dL Albumin (3.5-5.0) g/dL Globulin (1.7-4.1) g/dL Albumin/Globulin Ratio (1.0-2.8) Urine RBC None seen (0-5/HPF) Urine WBC 0-1/hpf (0-5/HPF) Urine Bacteria None seen (None) Hyaline Casts 1-5/lpf (None) Urine Mucus 1+ H (Negative) Ur Culture Indicated? Cult not indicated Micro UA Comment Not Reportable Blood Type O Positive Antibody Screen Negative Crossmatch See Detail Urine Dip Bedside Urine Glucose Negative Bedside Urine Bilirubin + 1 Bedside Urine Ketone - Negative Urine Specific [place] 1.020 Bedside Urine Occult Blood +/- Bedside Urine pH 6.0 Bedside Urine Protein +/- 15 Bedside Urine Urobilinogen 2+ 4mg Bedside Urine Nitrite - Negative Bedside Urine Leukocytes - Negative Esterase Imaging Data Chest x-ray: Radiologist's impression: Vance Duffy 67 M 1950 Allergy/Adv: No Known Drug Allergies CLOSE Chest X-Ray (Signed) Heaven Azevedo - 11/25/17 Chest X-Ray (Signed) Gabbie Jennings - 09/28/17 Femur X-Ray (Signed) Sourav Mirza - 09/27/[address] (Signed) Radhames Hooks - 09/25/17 MRI Orbit/Face/Neck/IAC (Signed) Sourav Mirza - 09/21/17 Bone Scan Nuclear Medicine (Signed) Lewis Cárdenas - 09/20/17 Abdomen/Pelvis CT (Signed) Sherry Villafuerte - 09/11/[address] (Signed) James Lin - 09/06/17 Chest X-Ray (Signed) Heaven Azevedo - 08/27/17 View Report History [address] [address] XRay Report Signed Patient: Vance Duffy MR#: [id number] : 1950 Acct:[id number] Age/Sex: 67 / M Date of Service: 11/25/17 Loc: Accession Number: [id number] Procedure: XR chest 1V Ordering Provider: Gosia Diaz D.O. PROCEDURE: XR CHEST 1V INDICATIONS: rectal bleeding, b/l leg edema, sob, on chemo biliary ca TECHNIQUE: One view of the chest was acquired. COMPARISON: Outside Film, CT, CT CHEST ABDOMEN PELVIS WITH/WITHOUT CONTRAST, , 15:16. [facility], CR, XR CHEST 1V, 09/28/2017, 12:33. FINDINGS: Surgical changes and devices: Right chest wall Port-A-Cath. Lungs and pleura: No pneumothorax. Numerous bilateral lung nodules compatible with known metastatic disease. Small right-sided pleural fluid collection noted. Mediastinum: Mediastinal contours appear normal. Heart size is normal. Bones and chest wall: No suspicious bony lesions. Overlying soft tissues appear unremarkable. IMPRESSION: Small right-sided pleural fluid collection. Multiple pulmonary nodules compatible with no metastatic disease. Dictated by: Heaven Azevedo MD, PhD on 11/25/2017 at 10:48 Approved by: Heaven Azevedo MD, PhD on 11/25/2017 at 10:49 ECG Data Attestation: I personally reviewed and interpreted this ECG as follows: Interpretation: sinus rhythm with sinus arrhythmia, rate of 94, P are 136, [place] 131 and QTC of 452. patient has what appears to be a right bundle branch block. MDM Narrative Medical decision making narrative: Patient's hemoglobin has once again dropped. He had rectal bleeding previously. With or status post is chemo. We discussed if they have talked about evaluating him for the exact source which he states they have not pursued all we discussed observation but patient would prefer to return home today. We did set up follow-up tomorrow with Oncology, he received 2 units of blood and is feeling much better. His oxygenation improved as well as Um his color and symptoms. Patient done recheck did not have any crackles or difficulty breathing or shortness of breath after the blood. He did receive Lasix in between and has Lasix at home and was encouraged to reach start her/continue of tomorrow unless he felt like he was more swollen his lower extremities today and then to take a dose this evening. Patient I discussed also signs and symptoms to watch for and reasons to return this evening. Discharge Plan Departure Patient Disposition: Home Clinical Impression: Rectal bleed, Anemia Discharge Date/Time: 11/25/17 18:12 Interventions: ED Discharge Assessment Last Done: 11/25/17 18:08 Activity Restrictions/Additional Instructions: Call 1st thing in the morning to the Oncology Center to set up a time for follow-up tomorrow with Dr. Hernandez with Oncology. He is aware your here in the department and would like to see you tomorrow to recheck blood count and make sure that you are continuing to improve. If you are able to set up follow up with Dr. Vance your oncologist tomorrow this is an option. You need to have your hemoglobin/blood count rechecked tomorrow. Return to the emergency department for fevers greater than 100.4F, new shortness of breath, chest pain, new weakness or abdominal pain. If you are having increasing rectal bleeding, lightheadedness syncope or presyncope/ passing out. Prescriptions: No Action tramadol 50 mg tablet 50 - 100 mg PO Q4-6H Qty: 180 RF: 0 triamcinolone acetonide 0.1 % cream 1 grant Topical QHS PRN (Reason: ITCHY) RF: 0 trazodone 100 mg Tablet 100 mg PO ONCE HS PRN (Reason: Sleep) 30 Days Qty: 30 RF: 0 ondansetron [Zuplenz] 4 mg Film 8 mg PO Q8-12H PRN (Reason: Nausea) 30 Days Qty: 20 RF: 3 tramadol 50 mg Tablet 50 mg PO Q4-6H PRN (Reason: Pain, Moderate) 30 Days Qty: 240 RF: 0 polyethylene glycol 3350 [Miralax] 17 gram/dose Powder 1.5 g/kg PO DAILY RF: 0 Cbd Cannibus lozenge 1 constantine PO 3-4XD PRN (Reason: Pain (Scale Score 4-6)) RF: 0 furosemide 40 mg Tablet 40 mg PO DAILY 30 Days Qty: 30 RF: 1
[2017-11-25] MEDS: ONDANSETRON 4 MG/2 ML INJ IV (09:46)
[2017-11-25] MEDS: PANTOPRAZOLE 40 MG VIAL IV (09:46)
[2017-11-25 09:48] LABS: Eosinophils Percent Auto 3.1 % (2-4); Hemoglobin 7.5 g/dL (13.5-17.5); Red Cell Distribution Width 21.5 % (11.6-14.8); White Blood Cell Count 2.8 X10^3/uL (4.5-11.0)
[2017-11-25 09:55] LABS: INR 1.6 (0.9-1.3); Prothrombin Time 17.7 SECONDS (10.1-12.7)
[2017-11-25 09:57] LABS: PTT Partial Thromboplastin Tim 30 SECONDS (26.4-36.2)
[2017-11-25 09:59] LABS: Add Manual Diff / Slide Review NO; Alanine Aminotransferase 45 IU/L (21-72); Albumin 2.2 g/dL (3.5-5.0); Albumin Globulin Ratio 0.7 (1.0-2.8); Alkaline Phosphatase 113 U/L (38-126); Aspartate Aminotransferase 26 IU/L (17-59); Basophils Percent Auto 0.8 % (0-2); Bilirubin Total 2.3 mg/dL (0.2-1.3); Blood Urea Nitrogen 25 mg/dL (9-20); Calcium 7.5 mg/dL (8.4-10.2); Chloride 95 mmol/L (98-107); Estimated Glomerular Filt Rate > 60.0 mL/min (>60); Globulin 3.1 g/dL (1.7-4.1); Glucose 100 mg/dL (80-110); HEMOLYSIS < 15 (0-50); Hematocrit 22.7 % (41-53); Lymphocytes Percent Auto 36.4 % (25-40); Mean Corpuscular Hemoglobin 33.1 PG (26-34); Mean Corpuscular Volume 100.4 fL (80-100); Monocytes Percent Auto 5.6 % (3-14); Neutrophils Absolute Auto 1500 /uL (3000-5900); Neutrophils Percent Auto 54.1 % (50-75); Platelet Count 95 X10^3/uL (150-400); Potassium 3.8 mmol/L (3.4-5.1); Red Blood Cell Count 2.26 X10^6/uL (4.5-5.9); Sodium 138 mmol/L (137-145); Total Protein 5.3 g/dL (6.3-8.2)
[2017-11-25 10:11] LABS: Carbon Dioxide 39 mmol/L (22-32)
[2017-11-25 10:14] LABS: Troponin I < 0.012 ng/mL (0.01-0.034)
[2017-11-25 10:27] LABS: Anisocytosis 2+; Hypochromasia 2+
--- NOTE | 2017-11-25 10:38 | PC.NURSE ---
Late Entry at 0930-Port a cath on L chest access using sterile technique. Attempted 2x due to first attempt not getting blood return after 4ml. Pt tolerated well and obtained all blood samples for cbc, chem, bld cultures x1, lactic acid, T&S. Site flushes well and used 20G 1.25 inch length.
--- NOTE | 2017-11-25 10:44 | PC.NURSE ---
Late Entry at 1000-o2 by NC provided at 2L due to pt's o2 sat at 90% in RA, Shortly after o2 sat improved to 97-98%.
[2017-11-25] MEDS: FUROSEMIDE 40 MG/4 ML VIAL IV (11:33)
--- NOTE | 2017-11-25 11:55 | PC.NURSE ---
Late entry@0930-Assumed care of pt. pt resting in bed with spouse at bedside. Noticed pale/jaundice in the face with distended abdomen. C/o feeing weak, denies abd pain, sob with mild exertion. Recently dx with biliary CA. Pt non-o2 dependent at home. Pt has been getting transfusion d/t low blood counts and currently getting chemo therapy which has been taken a toll in his body. +thrush in the tongue, mild crackels to bilateral lobes with diminished breath sounds. +3 edema to bilateral legs. no tender to palpate in abd, no guarding.
[2017-11-25 12:19] LABS: Bacteria Urine None Seen; RBC Urine None Seen (0-5/HPF)
[2017-11-25 12:28] LABS: WBC Urine 0-1/HPF (0-5/HPF)
[2017-11-25 12:29] LABS: Culture Indicated Urine Cult Not Indicated; Hyaline Casts Urine 1-5/LPF; Mucus Urine 1+ (Negative)
--- NOTE | 2017-11-25 14:39 | PC.NURSE ---
Please see VS notes as TAR VS.
--- NOTE | 2017-11-25 14:41 | PC.NURSE ---
Completed 1st bag of PRBC transfusion w/o problems.
--- NOTE | 2017-11-25 14:43 | PC.NURSE ---
Found pt w/o oxygen at times and noted desat to 89% in RA.
--- NOTE | 2017-11-25 14:59 | PC.NURSE ---
2nd unit of PRBC tranfusion began after verifying it with 2nd RN-MARIAH Gallego. Pt reports breathing better and feeling much better at this time. Facial color improved from pale/jaundice.
--- NOTE | 2017-11-25 17:06 | PC.NURSE ---
Dc'd O2 by NC to eval O2 on RA. Pt reports feeling much better.
--- NOTE | 2017-11-25 17:10 | TAR.TRANSNT ---
Completed 2nd unit of PRBC transfusion as ordered. Pt reports feeling much better at this time. Will continue to monitor pt's RA o2 sat.
== END 2017-11-25 18:12 | disposition home or self-care (01) ==
PROVIDERS: Emergency Provider Emergency Medicine; PCP Family Medicine
DX: K62.5 Hemorrhage of anus and rectum (principal); D64.9 Anemia, unspecified
CPT/HCPCS: 36430; 71045; 80053; 81003; 81015; 84484; 85025; 85610; 85730; 86850; 86900; 86901; 93005; 96374; 96375; 99285; P9016; C9113; J1940; J2405

== ENCOUNTER → 2017-11-29 10:28 | Outpatient (CLI) | payer MEDICARE, OTHER, SELFPAY ==
--- NOTE | 2017-11-29 10:32 | DI.CT.S_ITS ---
PROCEDURE: CT CHEST ABD PEL W CON INDICATIONS: Malignant neoplasm TECHNIQUE: After the administration of oral and intravenous contrast, 5 mm thick sections acquired from the lung apices to the symphysis. 5 mm coronal and sagittal reformats were performed, with additional 7 mm coronal MIP reformats through the lungs. For radiation dose reduction, the following was used: automated exposure control, adjustment of mA and/or kV according to patient size. COMPARISON: Outside Film, CT, CT CHEST ABDOMEN PELVIS WITH/WITHOUT CONTRAST, 10/17/2017, 15:16. FINDINGS: Image quality: Excellent. CHEST: Lungs and pleura: There is redemonstration of innumerable variable sized pulmonary metastases bilaterally. These appear grossly unchanged since the prior study. Moderate right pleural effusion with adjacent atelectasis there is also right middle lobe scarring. Overall, no gross interval change since 10/17/[address] No pneumothorax. Mediastinum: Heart size is normal. There are coronary artery calcifications. No pericardial effusion. Numerous bilateral hilar lymphadenopathy, in addition to enlarged mediastinal lymph nodes also appear grossly unchanged since prior study. Thoracic aorta and central pulmonary arteries are normal in size. Circumferential distal esophageal wall thickening with residual oral contrast material seen within the lumen, unchanged appearance. No hiatal hernia. Chest wall: No axillary or supraclavicular adenopathy by size criteria. Thyroid gland grossly unremarkable the. ABDOMEN: Solid organs: There are innumerable ill-defined and confluent hepatic metastases. Accounting for differences in exam technique and protocol no discernible change since the prior study. There is interval development of perihepatic ascites as well as scattered ascites within the paracolic gutters bilaterally and within the midline pelvis Gallbladder partially collapsed otherwise unremarkable. Biliary system is non dilated. Pancreas enhances normally. Spleen is normal in size and enhancement. No adrenal nodules. Kidneys demonstrate normal size and enhancement, without hydronephrosis. Unchanged simple appearing left renal cyst. Peritoneum and bowel: Bowel loops demonstrate normal wall thickness and caliber. No free air. Scattered colonic diverticula incidentally noted. The rectum is grossly unremarkable. Appendix not well-visualized. Unchanged 2.8 x 4.3 cm infrarenal abdominal aortic aneurysm. Nodes and vessels: No retroperitoneal or mesenteric adenopathy by size criteria. Enlarged portacaval lymph node is seen. Aorta and inferior vena cava are normal in size. Miscellaneous: No ventral hernias. PELVIS: Genitourinary: Bladder wall thickness is normal. Miscellaneous: No inguinal hernias or adenopathy. Bilateral hip and flank subcutaneous edema raising the possibility of anasarca Bones: No suspicious bony lesions. No vertebral body compression fractures. IMPRESSION: Overall, interval development of mild ascites in the perihepatic region, bilateral paracolic gutters, and pelvis. Elsewhere, grossly stable examination since outside CT dated 10/17/17 with redemonstration of extensive hepatic, pulmonary metastatic disease in addition to hilar and mediastinal lymphadenopathy all of which appears grossly unchanged. Unchanged infrarenal abdominal aortic aneurysm as above. Dictated by: Himanshu Hall M.D. on 11/29/2017 at 12:30 Approved by: Himanshu Hall M.D. on 11/29/2017 at 12:42
--- NOTE | 2017-11-29 10:32 | DI.ECHO.S_ITS ---
[facility] +---------+ : : [address] : : : : [id number] : : : : Phone: [phone] Echocardiogram Report + + :Name: MAYRA LICONA Study Date: 11/29/2017 Height: 73 in : :[facility] Weight: 275 lb: : Gender: Male BSA: 2.5 m2 : :: 1950 Age: 67 yrs : :Reason For Study: EDEMA : : Performed By: Tiki Humphrey : :Referring: NUVIA ARRIAGA : + + Interpretation Summary Left ventricular ejection fraction is estimated to be 55 +/- 5%. The right ventricle is borderline dilated. There is mild aortic valve sclerosis. Procedure: A two-dimensional transthoracic echocardiogram with color flow and Doppler was performed. The study quality was technically limited. The apical views were not obtained due to body habitus. There is no prior echocardiogram noted for this patient. Definity was not used due to unobtainable apical images. The heart rate ranged between 90-100 bpm during the study. Left Ventricle: The left ventricle is normal in size. There is normal left ventricular wall thickness. Left ventricular ejection fraction is estimated to be 55 +/- 5%. There are no obvious focal wall motion abnormalities noted but poor endocardial definition reduces the sensitivity for the detection of such. Diastolic function could not be accurately assessed due to unobtainable data. Right Ventricle: The right ventricle is borderline dilated. The right ventricular systolic function is normal. Atria: The left atrium is not well visualized. Right atrium not well visualized. Mitral Valve: There is mild mitral annular calcification. The mitral valve leaflets appear thickened, but open well. There is no mitral regurgitation noted. Aortic Valve: The aortic valve is trileaflet. There is mild aortic valve sclerosis. There is no aortic valve stenosis. No aortic regurgitation is present. Tricuspid Valve: The tricuspid valve is normal in structure and function. There is a trace or physiologic amount of tricuspid regurgitation. Pulmonary artery pressures cannot be estimated because of the lack of a measurable TR jet velocity. Pulmonic Valve: The pulmonic valve is not well visualized. There is a trace or physiologic amount of pulmonic regurgitation. Great Vessels: The aortic root is normal size. The ascending aorta is moderate-severely enlarged. The aortic arch could not be visualized. The pulmonary is not well visualized. The IVC is of normal diameter and collapses greater than 50% with a sniff. This suggests a low right atrial pressure of 3 mm Hg. Pericardium/ Pleura There is no pericardial effusion. There is no pleural effusion. MMode/2D Measurements & Calculations LVIDd: 4.5 cm LVOT diam: 2.2 cm LVIDs: 2.1 cm Ao root diam: 3.4 cm FS: 53.2 % asc Aorta Diam: 4.2 cm IVSd: 0.90 cm LVPWd: 0.99 cm LV dixon. diameter/BSA (cm/m^2): 1.8 LV sys. diameter/BSA (cm/m^2): 0.85 RVD1 (basal): 3.2 cm TAPSE: 2.1 cm Doppler Measurements & Calculations Med Peak E' Kiko: 5.5 cm/sec Lat Peak E' Kiko: 11.9 cm/sec Reading Physician:02:51 PM
--- NOTE | 2018-01-02 13:12 | ONC.NAV ---
*Sent bereavement card.
== END ==
PROVIDERS: PCP Family Medicine
DX: C78.7 Secondary malignant neoplasm of liver and intrahepatic bile duct (principal); C78.00 Secondary malignant neoplasm of unspecified lung; C80.1 Malignant (primary) neoplasm, unspecified; R18.8 Other ascites; R60.0 Localized edema; R59.0 Localized enlarged lymph nodes; I71.4 Abdominal aortic aneurysm, without rupture; I35.8 Other nonrheumatic aortic valve disorders
CPT/HCPCS: 71260; 74177; 93306; Q9967

== ENCOUNTER 2017-12-05 08:30 | Oncology outpatient (ONC) | payer MEDICARE, OTHER, SELFPAY ==
[2017-09-12 12:42] VITALS: BP 144/94; PULSE 87; RESP 17; TEMP 36.8; O2SAT 94
--- NOTE | 2017-09-12 16:19 | P.CONONC_ITS ---
History of Present Illness - Data of Consult Primary Care Provider: Kirsty Caballero DO - Consult Narrative Narrative: Vance Duffy is a 67 year old male who is seen in consultation for advanced/metastatic malignancy based on recent CT imaging. History of present illness: He presents to clinic today accompanied by his . He has a long smoking history from age 19 until August 2017, averaging 2 packs per day. No personal history of malignancy. He felt well until about 6-8 weeks ago when he began noting cough with intermittent hemoptysis. No fever, chills. He did note some weight loss but he and his say he was trying to lose weight, previously weighed 300 lb and this recently decreased to about 270. No bone pain or significant discomfort. He has chronic right sided sciatic pain he says but this is unchanged. He takes tramadol for it. No headaches or new neurologic symptoms. No nausea or vomiting. He presented to walk-in clinic in August complaining of dyspnea and hemoptysis. Chest x-ray on August 27, 2017 showed bilateral lung nodules with patchy opacity in the right lung base and small right-sided pleural effusion. Subsequent CT of the chest with contrast on September 06, 2017 showed extensive bilateral pulmonary nodules ranging from several mm up to 3.6 cm in size with the largest mass in the lateral right lung base. Small right pleural effusion. Subtle pleural enhancement and thickening also noted. Images of the upper abdomen show extensive hepatic involvement with multiple small and large masses throughout all hepatic segments, the largest measuring up to 13.6 cm at the right anterior and posterior hepatic lobes. CT abdomen and pelvis performed yesterday again demonstrates extensive liver involvement. He was treated for presumed respiratory infection with azithromycin, now completed. He presents here today to review findings and recommendations for management and treatment. CC: Cristopher Avalos MD Home Medications and Allergies Home Medications Medication Instructions Recorded Confirmed Type [TUMERIC] 1 tab PO QAM #0 07/19/16 09/12/17 History triamcinolone acetonide 1 grant TOPICAL QHS PRN #15 gm 12/05/16 09/12/17 Rx azithromycin 250 mg tablet See Label Instructions PO .COMPLEX 09/07/17 09/12/17 Rx #6 tab tramadol 50 mg tablet 50 - 100 mg PO Q4-6H #180 tab 09/07/17 09/12/17 Rx Allergies Allergy/AdvReac Type Severity Reaction Status Date / Time No Known Drug Allergies Allergy Verified 09/07/17 17:05 Medical History - Social History Smoking Status: Current every day smoker Review of Systems - Patient Self-Reported Symptoms SR Constitution: Fatigue/Malaise SR respiratory issues: Coughing blood, Shortness of breath, Mucous SR Genitourinary issues: Frequent urination SR Musculoskeletal issues: Back or neck pain, Difficulty walking SR Hematologic issues: Bleeding/bruising Constitutional: weight loss, fair state of general health, decreased activity level Eyes: pain, no change in vision, no double vision, no swelling Ears, nose, mouth, throat: decreased hearing, no headaches, no lightheadedness, no head injury, no tinnitus, no epistaxis, no dental problems, no sore throat Cardiovascular: dyspnea on exertion, no chest pain, no palpitations, no orthopnea, no edema, no cyanosis, no heart murmur Respiratory: shortness of breath, hemoptysis, no pain with respirations, no wheezing, no stridor, no night sweats Gastrointestinal: change in appetite, no dysphagia, no indigestion, no abdominal pain, no nausea, no hematemesis, no jaundice, no diarrhea Genitourinary: no urgency, no frequency, no dysuria, no hematuria Integumentary: no rash, no bleeding or bruising, no itching, no pigment changes Neurological: no seizures, no memory loss, no speech disturbance, no motor difficulty Psychiatric: no mood disturbance, no anxiety, no depression, no hallucinations Exam Vital signs: Last Vital Signs Temp 98.3 F 09/12/17 12:42 Pulse 87 09/12/17 12:42 Resp 17 09/12/17 12:42 BP 144/94 H 09/12/17 12:42 Pulse Ox 94 09/12/17 12:42 - Constitutional negative no acute distress, positive obese, positive cooperative - Routine HEENT Exam Head: Present: normocephalic, atraumatic Eye: Present: EOMI, PERRL, conjunctivae pink. Absent: conjunctival icterus, scleral injection, periorbital ecchymosis, periorbital swelling ENT: Present: mucous membranes moist, oropharynx clear - Routine Neck Exam Present: supple. Absent: JVD, lymphadenopathy - Routine Chest/Breast/Axilla Exam Breast: Absent: tenderness, mass Axillae: Absent: lymphadenopathy, mass, tenderness - Routine Respiratory Exam Present: Clear to auscultation bilaterally, decreased breath sounds, crackles. Absent: accessory muscle use, rales, wheezes Comments: Decreased breath sounds with a few inspiratory crackles at the right lung base. - Routine Cardiovascular Exam Present: RRR, S1, S2. Absent: murmur, S3 - Routine Abdominal Exam Present: soft, normoactive bowel sounds, tenderness, organomegaly. Absent: distended Palpation/Percussion: Present: hepatomegaly. Absent: splenomegaly - Routine Extremities Exam Absent: cyanosis, clubbing, edema - Routine Back/Spine Exam Back/Spine: Present: full ROM. Absent: paraspinal tenderness, erythema, warmth - Routine Skin Exam Present: intact. Absent: cyanosis, erythema, jaundice, rash, ecchymosis - Routine Neurological Exam Present: alert, oriented X3, CN II-XII intact, moving all extremities, normal tone, normal speech. Absent: sensory deficit, motor deficit, abnormal gait, nystagmus - Routine Psychiatric Exam Present: normal affect, normal thought process, cooperative Results - Imaging Additional studies: Procedures Closed [endoscopic] biopsy of large intestine (08/26/13) Assessment and Plan - Time Spent with Patient IMPRESSION: 1. Metastatic malignancy by CT imaging with most likely etiology being primary bronchogenic carcinoma including small cell carcinoma of the lung. 2. Hemoptysis secondary to pulmonary masses/metastatic disease. 3. Dyspnea, secondary to above. 4. Tobacco use. 5. Right-sided sciatic pain, chronic. I reviewed the lab and imaging results and clinical concerns in detail with him and his at today's visit. He understands the clinical concerned that this most likely represents advanced malignancy with bleeding contend her being small cell carcinoma of lung. He has a long, heavy smoking history which would also be consistent with this. I reviewed the need for histologic confirmation and we will schedule him for CT-guided biopsy of either the liver or pulmonary metastatic disease. Biopsy of the liver would potentially confirm primary diagnosis as well as metastatic disease from same primary. He will also need to complete staging with MR brain and bone scan. I reviewed potential risks of the biopsy including bleeding, infection and pain as well as potential pneumothorax if lung biopsy is performed. He will review and sign consents with radiologist prior to the procedure. Reviewed potential treatment given these concerns. We will need to meet with pathology and imaging results and finalize treatment plan at that time. At this confirm small cell carcinoma the lung and would anticipate primary systemic chemotherapy given presentation with extensive stage disease. If biopsy shows non-small cell carcinoma of the lung or other possible primary site the treatment will need to be appropriate to those diagnoses. He and his voiced understanding and appreciation for today's consultation. They understand that we will need more information before making a definitive treatment plan. PLAN: 1. CBC, CMP, LDH, ferritin, CEA. 2. Referral to interventional Radiology for CT-guided biopsy. 3. MR brain with contrast. 4. Nuclear medicine bone scan. 5. Follow up with other providers as planned. 6. Return appointment here after above studies to review results, treatment options and plan. 7. Anticipate referrals to secondary social studies teacher, community organization director and other application support manager as appropriate. DICTATED BY CRISTOPHER AVALOS MD MEDICAL ONCOLOGY AND HEMATOLOGY
[2017-09-19 09:19] VITALS: BP 140/78; PULSE 84; RESP 20; O2SAT 94
--- NOTE | 2017-09-19 09:29 | PC.NURSE ---
Pt presented to clinic requesting that his o2 sat be checked because he is feeling more SOB at home. Sats are 94% on room air; ambulating his sats dropped as low as 90% but stayed consistently in the range of 91-94%. Lungs are clear throughout except diminished lung sounds right base. Pt reports that he feels fine at home except that when he tries to do activity, he can't catch his breath. Pt is currently being worked up for lung CA and is scheduled for a CT guided biopsy next sunday to determine definitive diagnosis and meets with Dr Avalos next week to outline treatment plan. Pt asked about home oxygen, however with his o2 sats, he doesn't qualify for home oxygen. He asked about an inhaler. Encouraged pt to rest at home, scale back his usual activity until all the eval has been done. Eventually he may qualify for home oxygen and he can talk to at next appt regarding whether an inhaler may be appropriate and helpful. Pt states he'll just take it easy. Instructed pt to go to ER should his breathing become worse. Verbalized understanding.
--- NOTE | 2017-09-20 13:41 | PC.NURSE ---
Elevated Hep C viral counts-Gina ext [phone] Dr Caballero's office-[facility] called on Sunday. Dr Caballero wanted oncologist to review labs and ask if he should have a GI consult or other plan.Dr .Dr Avalos is seeing him in work-up for lung CA and felt GI consult appropriate.Called [facility] and SABAS and Dr Caballero are out today.Message sheet with above info faxed to [facility] clinic [phone]
--- NOTE | 2017-09-26 09:30 | ONC.PN ---
Assessment and Plan - Time Spent with Patient IMPRESSION: 1. Metastatic malignancy by CT imaging, status post CT-guided liver biopsy September 25, 2017. 2. Hemoptysis, most likely due to pulmonary metastases. 3. Fatigue and dyspnea secondary to above. 4. Tobacco use. 5. Right-sided sciatic pain, chronic. 6. Focal uptake on bone scan right proximal femur. I reviewed the recent bone scan and brain MRI results. Possible early metastasis in the right proximal femur. Will check plain films however there may not be much cortical destruction and could therefore be negative. Brain MRI shows no evidence of metastatic involvement. Biopsy done yesterday with results still pending at this time. Reviewed recent lab work including LDH over 2200. 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 Cannot exclude other possibilities including lymphoma though presentation would be unusual particularly with multiple pulmonary masses. Similarly, primary hepatocellular carcinoma or other upper GI malignancy less likely based on the imaging and presentation. Primary malignancy could present with this distribution of disease involvement the would be unusual given the relative lack of symptoms or findings referable to primary site in the ureter or bladder. 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 I reviewed likely treatment with systemic chemotherapy utilizing carboplatin and etoposide per standard practice and current NCCN Guidelines. He would not be a candidate for surgical resection given the extent of metastatic disease. Concurrent chemoradiation therapy for treatment of small cell carcinoma of the lung would be indicated for limited stage or locally advanced disease but not in his case given the extent of metastasis. Palliative radiation therapy for treatment of pain, bleeding or other symptoms would be an option. We reviewed potential side effects including fatigue, cytopenias with potential neutropenia and risk for sepsis or , anemia potential need for transfusion, thrombocytopenia and risk for hemorrhage, neuropathy, hypersensitivity reaction anaphylaxis. Will review in more detail once we confirm the pathology results and I will have him return in a couple of days to review this. Tentatively scheduled to begin chemotherapy next week pending results of his biopsy yesterday. PLAN: 1. CT-guided liver biopsy September 25, 2017 pending. 2. Return appointment next week to review biopsy results, lab work and treatment plan. 3. CBC, CMP, LDH. 4. Referral for Port-A-Cath placement versus PICC line. Reviewed with patient. 5. Referral to GI for evaluation management of hepatitis-C based on recent lab results ordered by Dr. Caballero. 6. Begin allopurinol 300 mg p.o. daily (number 30 with no refills) to [facility] in [place]. 7. Anticipate treatment to begin October 03, 2017. 8. Return appointment with me October 02, 2017. DICTATED BY MELVIN CALI MD MEDICAL ONCOLOGY AND HEMATOLOGY PN -Subjective Interval history: HEMATOLOGY/ONCOLOGY PROGRESS NOTE DATE OF SERVICE: SEPTEMBER 26, 2017 PATIENT NAME: MAYRA LICONA DATE OF : 1950 PCP: IDENTIFICATION: This is a 67-year-old gentleman who returns in follow-up after initial consultation here on September 12, 2017 for newly diagnosed metastatic malignancy. INTERVAL HISTORY: He returns today with his , Jennifer. Bone scan September 20, 2017 demonstrates focal uptake in the proximal right femoral shaft, possibly representing early osseous metastasis. MR brain September 21, 2017 shows no evidence of metastatic disease. CT-guided liver biopsy performed September 25, 2017 with pathology still pending at today's visit. He tolerated the biopsy procedure well and denies significant pain or other problems. Still with a Band-Aid in place but no change in appetite, bowel habits or other concerns. No fever or chills. He feels okay and without new symptoms today. He still feels tired and fatigues easily, but denies any chest or abdominal pain. His appetite remains very good and he denies any nausea, abdominal discomfort, bloating or jaundice. His confirms that he is eating well. No fever, chills, night sweats, rash or pruritus. No bone pain, specifically no pain in the right hip for proximal thigh. No headaches or new neurologic symptoms. No bleeding or bruising. No flank pain or hematuria. Additional lab work ordered by Dr. Caballero was positive for hepatitis-C. Report is not available to me at the time of his visit though believe there was confirmation of hep C RNA presence. - Patient Self-Reported Symptoms SR Constitution: Fatigue/Malaise SR respiratory issues: Coughing blood, Shortness of breath, Mucous SR Genitourinary issues: Frequent urination SR Musculoskeletal issues: Back or neck pain, Difficulty walking SR Hematologic issues: Bleeding/bruising - Additional ROS Additional ROS: REVIEW OF SYSTEMS General: Denies fever, night sweats or weight loss. HEENT: No vision change, diplopia, epistaxis or dysphagia. Respiratory: As above. Cardiac: No PND or orthopnea. GI: No jaundice, bloating, nausea or pain. : Negative. Musculoskeletal: As above. Neurologic: Negative. Results - Imaging Additional studies: Procedures Closed [endoscopic] biopsy of large intestine (08/26/13) Home Medications and Allergies Home Medications Medication Instructions Recorded Confirmed Type [TUMERIC] 1 tab PO QAM #0 07/19/16 09/12/17 History azithromycin 250 mg tablet See Label Instructions PO .COMPLEX 09/07/17 09/25/17 Rx #6 tab tramadol 50 mg tablet 50 - 100 mg PO Q4-6H #180 tab 09/07/17 09/25/17 Rx amoxicillin-pot clavulanate 09/25/17 History triamcinolone acetonide 1 grant TOPICAL QHS PRN 09/25/17 History Allergies Allergy/AdvReac Type Severity Reaction Status Date / Time No Known Drug Allergies Allergy Verified 09/07/17 17:05 Exam Vital signs: Last Vital Signs Temp 98.3 F 09/12/17 12:42 Pulse 84 09/19/17 09:19 Resp 20 09/19/17 09:19 BP 140/78 H 09/19/17 09:19 Pulse Ox 94 09/19/17 09:19 - Constitutional positive no acute distress, positive obese, positive cooperative Comments: He appears pale and somewhat tired but not in distress. - Routine HEENT Exam Head: Present: normocephalic, atraumatic. Absent: cushingoid faces Eye: Present: EOMI, PERRL. Absent: conjunctival icterus, scleral injection, periorbital ecchymosis, periorbital swelling ENT: Present: mucous membranes moist, oropharynx clear - Routine Neck Exam Present: supple. Absent: lymphadenopathy - Routine Chest/Breast/Axilla Exam Axillae: Absent: lymphadenopathy - Routine Respiratory Exam Present: Clear to auscultation bilaterally. Absent: accessory muscle use, rales, rhonchi, wheezes - Routine Cardiovascular Exam Present: RRR, S1, S2. Absent: murmur, S3 - Routine Abdominal Exam Present: soft, normoactive bowel sounds. Absent: distended, organomegaly - Routine Extremities Exam Absent: cyanosis, clubbing, edema - Routine Skin Exam Present: intact. Absent: cyanosis, erythema, petechiae, jaundice, rash, ecchymosis - Routine Neurological Exam Present: alert, oriented X3, moving all extremities, normal speech. Absent: altered mental status, abnormal gait - Routine Psychiatric Exam Present: normal affect, normal thought process, cooperative, good judgment
[2017-09-26 09:45] VITALS: BP 143/72; PULSE 85; RESP 16; TEMP 36.6; O2SAT 95
--- NOTE | 2017-09-26 13:21 | ONC.NAV ---
Description: T/C-Check-in re: 's coping/support needs Activity: Called pt to first clarify what his 's contact number is; the number in the chart was disconnected. Obtained the correct number, will change it in the EMR. SERVICE [employer]INK[employer] HELPER inquired about 's coping since leaving the clinic. She had been very tearful and distressed after their visit, at which time they were told the difficult news re: his widely metastatic lung cancer. He stated that his was sleeping, however thanked me for my call. Made a plan for me to call her back tomorrow.
--- NOTE | 2017-09-28 14:45 | PC.NURSE ---
Dr Rosi Lundberg from pathology called to report pt liver biopsy preliminary result is poorly differentiated neoplasm. Special stains are still pending at this time. This message placed in Dr Avalos's box along with phone number to call if he has any further questions.
[2017-10-02 09:30] LABS: Add Manual Diff / Slide Review NO; Basophils Percent Auto 0.3 % (0-2); Eosinophils Percent Auto 2.2 % (2-4); Hematocrit 37.4 % (41-53); Hemoglobin 12.3 g/dL (13.5-17.5); Lymphocytes Percent Auto 15.4 % (25-40); Mean Corpuscular HGB Conc 32.8 % (30-36); Mean Corpuscular Volume 94.5 fL (80-100); Neutrophils Absolute Auto 11500 /uL (3000-5900); Neutrophils Percent Auto 74.1 % (50-75); Platelet Count 192 X10^3/uL (150-400); Red Blood Cell Count 3.96 X10^6/uL (4.5-5.9); White Blood Cell Count 15.5 X10^3/uL (4.5-11.0)
[2017-10-02 09:42] VITALS: BP 142/78; PULSE 83; RESP 16; TEMP 36.9; O2SAT 95
[2017-10-02 09:42] LABS: Alanine Aminotransferase 66 IU/L (21-72); Albumin 3.7 g/dL (3.5-5.0); Alkaline Phosphatase 261 U/L (38-126); Aspartate Aminotransferase 77 IU/L (17-59); BUN Creatinine Ratio 25.7 (6-22); Bilirubin Total 1.4 mg/dL (0.2-1.3); Blood Urea Nitrogen 18 mg/dL (9-20); Calcium 8.9 mg/dL (8.4-10.2); Carbon Dioxide 36 mmol/L (22-32); Chloride 98 mmol/L (98-107); Estimated Glomerular Filt Rate > 60.0 mL/min (>60); Globulin 3.8 g/dL (1.7-4.1); Glucose 98 mg/dL (80-110); HEMOLYSIS < 15 (0-50); Potassium 4.5 mmol/L (3.4-5.1); Sodium 138 mmol/L (137-145); Total Protein 7.5 g/dL (6.3-8.2)
--- NOTE | 2017-10-02 09:42 | ONC.PN ---
Assessment and Plan - Time Spent with Patient IMPRESSION: 1. Metastatic, poorly differentiated malignant neoplasm status post CT-guided liver biopsy September 25, 2017. Further immunohistochemistry studies and final results remain pending at his visit today. 2. Lytic lesion proximal right femur. Bone scan 09/20/2017 and plain film 09/27/2017. 3. Pulmonary metastases with intermittent hemoptysis, small volume. 4. Hepatitis C. referral pending to GI. 5. Tobacco use. 6. Generalized fatigue and dyspnea secondary to above. 7. Anemia, normocytic. 8. Abnormal LFTs including T bili 1.4, alk phos 261, AST 77, ALT 66 and LDH 2318. I reviewed biopsy results, lab and previous imaging results with him and his Jennifer today. Preliminary report suggests diagnosis of non-small cell carcinoma is favored despite presentation with bulky, extensive metastatic disease and markedly elevated LDH more suggestive of small cell carcinoma of the lung. Also heavy smoking history. He is a bit more symptomatic but still not as symptomatic as would be expected given the extent of disease if this represented small cell carcinoma of the lung. Other, less likely possibilities would include metastatic transitional cell or other genitourinary source, pending IHC and other results with final pathology report. Unlikely to represent non-Hodgkin's lymphoma given the presentation which would be very unusual. We discussed potential treatment pending receipt of the final pathology report. Consider a probably active regimen such as carboplatin with etoposide or carboplatin with paclitaxel. Would not favor bevacizumab given ongoing hemoptysis. Consider pemetrexed or other agents pending final pathologic diagnosis if non-small cell carcinoma, nonsquamous type is confirmed. Much additional time spent in counseling and review of these issues and treatment options with him and his . He will return tomorrow and plan to start treatment at that time. PLAN: 1. Pathology results pending. Will review when he returns. 2. Return tomorrow to begin chemotherapy pending above. 3. Routine Port-A-Cath care. 4. CBC, CMP day 8 cycle 1 and prior to treatment each cycle. LDH, magnesium prior to treatment. 5. Filgrastim support. 6. Transfuse RBCs or platelets if indicated. 7. Referral to Radiation Oncology for possible future palliative radiation therapy to the right femur lesion. 8. Allopurinol 300 mg daily. 9. Repeat AFP, CEA and CA 19-9 prior to treatment. DICTATED BY MELVIN CALI MD MEDICAL ONCOLOGY AND HEMATOLOGY PN -Subjective Interval history: HEMATOLOGY/ONCOLOGY PROGRESS NOTE DATE OF SERVICE: OCTOBER 02, 2017 PATIENT NAME: MAYRA LICONA DATE OF : 1950 PCP: IDENTIFICATION: This is a 67-year-old gentleman who returns with his today to review plan for treatment. INTERVAL HISTORY: He returns today with his , Jennifer. He returns to review biopsy results and plan for treatment. Continues to feel okay with some minor fatigue and malaise but no new pain or other concerns. He denies nausea, vomiting or jaundice. No new bone pain including the right thigh. He has past history of sciatic pain on that side dating back many years but this is not recently changed or worsened. No new neurologic symptoms. He denies productive cough, dyspnea, hemoptysis, headaches or new neurologic symptoms. Appetite is good and bowels are functioning and stable. - Patient Self-Reported Symptoms SR Constitution: Fatigue/Malaise SR respiratory issues: Coughing blood, Shortness of breath, Mucous SR Gastrointestinal issues: Constipation SR Genitourinary issues: Frequent urination SR Musculoskeletal issues: Back or neck pain, Difficulty walking SR Hematologic issues: Bleeding/bruising - Additional ROS Additional ROS: Review of systems: General: No night sweats or weight loss. HEENT: Denies vision change, diplopia, epistaxis or dysphagia. Respiratory: As above. Cardiac: No chest pain, PND or orthopnea. GI: As above. : No flank pain or hematuria. Musculoskeletal: As above. Neurologic: Negative. Results - Labs 10/02/17 09:16 10/02/17 09:16 Laboratory Last Values WBC 15.5 X10^3/uL (4.5-11.0) H 10/02/17 09:16 RBC 3.96 X10^6/uL (4.5-5.9) L 10/02/17 09:16 Hgb 12.3 g/dL (13.5-17.5) L 10/02/17 09:16 Hct 37.4 % (41-53) L 10/02/17 09:16 MCV 94.5 fL (80-100) 10/02/17 09:16 MCH 31.0 PG (26-34) 10/02/17 09:16 MCHC 32.8 % (30-36) 10/02/17 09:16 RDW 15.0 % (11.6-14.8) H 10/02/17 09:16 Plt Count 192 X10^3/uL (150-400) 10/02/17 09:16 Neut % (Auto) 74.1 % (50-75) 10/02/17 09:16 Lymph % (Auto) 15.4 % (25-40) L 10/02/17 09:16 [place] % (Auto) 8.0 % (3-14) 10/02/17 09:16 Eos % (Auto) 2.2 % (2-4) 10/02/17 09:16 Baso % (Auto) 0.3 % (0-2) 10/02/17 09:16 Neut # (Auto) 70587 /uL (6986-8022) H 10/02/17 09:16 - Imaging Additional studies: Procedures Closed [endoscopic] biopsy of large intestine (08/26/13) Home Medications and Allergies Home Medications Medication Instructions Recorded Confirmed Type [TUMERIC] 1 tab PO QAM #0 07/19/16 09/12/17 History azithromycin 250 mg tablet See Label Instructions PO .COMPLEX 09/07/17 09/25/17 Rx #6 tab tramadol 50 mg tablet 50 - 100 mg PO Q4-6H #180 tab 09/07/17 09/27/17 Rx amoxicillin-pot clavulanate 09/25/17 History triamcinolone acetonide 1 grant TOPICAL QHS PRN 09/25/17 History Allergies Allergy/AdvReac Type Severity Reaction Status Date / Time No Known Drug Allergies Allergy Verified 09/27/17 12:54 Exam Vital signs: Last Vital Signs Temp 97.9 F 09/26/17 09:45 Pulse 85 09/26/17 09:45 Resp 16 09/26/17 09:45 BP 143/72 H 09/26/17 09:45 Pulse Ox 95 09/26/17 09:45 - Constitutional positive mild distress, positive average body habitus, positive cooperative - Routine HEENT Exam Head: Present: normocephalic, atraumatic. Absent: facial swelling Eye: Present: EOMI, PERRL. Absent: periorbital ecchymosis, periorbital swelling ENT: Present: mucous membranes moist, oropharynx clear - Routine Extremities Exam Absent: cyanosis, clubbing, edema - Routine Skin Exam Present: intact. Absent: cyanosis, erythema, jaundice, rash, ecchymosis - Routine Neurological Exam Present: alert, oriented X3, moving all extremities, normal speech. Absent: altered mental status - Routine Psychiatric Exam Present: normal affect, normal thought process, good judgment
[2017-10-02 09:51] LABS: Lactate Dehydrogenase 2318 U/L (313-618)
--- NOTE | 2017-10-03 09:16 | ONC.NAV ---
Description: New Pt Intro Activity: Met with pt's and dtr in the infusion room to introduce myself as the Pt Vahe/[employer], offer services card, and check on coping/support needs. Pt's shared that she is coping much better since their last visit, when she left the clinic very tearfully. She states that their family and adult children are all very supportive and involved. [employer]IST [employer] provided the family with informational packets on nutrition, caregiver coping, and understanding chemotherapy. Following the above meeting, pt's dtr, Fatimah, asked to talk alone. She expressed feeling very concerned that her mother was not fully understanding how serious this is and was wanting to have her dad go see a specialist. Discussed the option of having a second opinion, and shared that [facility] is usually where we send people for this, however, her father can go wherever he would like. 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 Discussed DPOA for Healthcare, and encouraged Fatimah to talk openly with her mother and father about wanting to be more involved in helping with care coordination; she initially expressed wanting to do this without the knowledge of her mother/father. She ultimately expressed feeling that this information and support was very helpful for her, and that she felt more reassured and understanding of this whole process. The family is feeling particularly overwhelmed today, as it is pt's first chemo treatment. Plan: Continue to f/u and offer resources/support/care coordination as needed.
[2017-10-03 09:36] LABS: Alanine Aminotransferase 61 IU/L (21-72); Albumin 3.5 g/dL (3.5-5.0); Albumin Globulin Ratio 0.9 (1.0-2.8); Alkaline Phosphatase 254 U/L (38-126); Aspartate Aminotransferase 82 IU/L (17-59); Bilirubin Total 1.1 mg/dL (0.2-1.3); Blood Urea Nitrogen 21 mg/dL (9-20); Calcium 8.7 mg/dL (8.4-10.2); Carbon Dioxide 36 mmol/L (22-32); Chloride 100 mmol/L (98-107); Estimated Glomerular Filt Rate > 60.0 mL/min (>60); Globulin 3.7 g/dL (1.7-4.1); Glucose 120 mg/dL (80-110); HEMOLYSIS < 15 (0-50); Potassium 4.4 mmol/L (3.4-5.1); Sodium 140 mmol/L (137-145); Total Protein 7.2 g/dL (6.3-8.2)
[2017-10-03] MEDS: SODIUM CHLORIDE 0.9% 1,000 ML 500 ML IV (09:42)
[2017-10-03] MEDS: LORazepam 0.5 MG TABLET PO (09:46)
[2017-10-03] MEDS: DEXAMETHASONE 12 MG in SODIUM CHLORIDE 0.9% 50 ML 212 ML IV (10:00)
[2017-10-03] MEDS: FOSAPREPITANT 150 MG in SODIUM CHLORIDE 0.9% 150 ML 300 ML IV (10:28)
[2017-10-03] MEDS: ONDANSETRON 16 MG in SODIUM CHLORIDE 0.9% 50 ML 232 ML IV (11:16)
[2017-10-03] MEDS: GEMCITABINE IV (11:57)
[2017-10-03] MEDS: SODIUM CHLORIDE 0.9% IV (11:57)
[2017-10-03] MEDS: CISPLATIN IV (12:32)
[2017-10-03] MEDS: MANNITOL IV (12:32)
[2017-10-03] MEDS: POTASSIUM CHLORIDE IV (12:32)
[2017-10-03] MEDS: [UNRECOGNIZED DRUG - OTHER] IV (12:32)
--- NOTE | 2017-10-03 14:30 | ONC.NAV ---
*Pt received a Chemo Quilt today.
--- NOTE | 2017-10-03 18:11 | P.PNONC_ITS ---
Assessment and Plan - Time Spent with Patient IMPRESSION: 1. Metastatic, poorly differentiated malignant neoplasm status post CT-guided liver biopsy September 25, 2017. 2. Lytic lesion right proximal femur. Bone scan 09/20/2017 and plain films confirming. 3. Bilateral pulmonary nodules with intermittent hemoptysis. 4. Hepatitis-C. Referral pending with GI. 5. Tobacco use history. 6. Weakness and fatigue. 7. Anemia, normocytic. 8. Abnormal LFTs including T bili 1.4, alk-phos 261, AST 77, ALT 66 and LDH 2318. PLEASE SEE RECENT NOTES INCLUDING 10/02/2017. I reviewed the pathology report as well as previous lab and imaging studies with him and his family today. Findings are most consistent with upper GI primary rather than metastatic bronchogenic carcinoma including small cell carcinoma of the lung. No specific symptoms or findings to suggest genitourinary primary site. He is ready to begin treatment and we will proceed with cycle 1 today. Given the findings, I would favor initial treatment with the combination of cisplatin and gemcitabine. This regimen is active for biliary tract malignancies including cholangiocarcinoma as well as pancreatic or upper GI source. Additionally, given concerns about hepatic insufficiency it would be best to avoid drugs such as paclitaxel which could be more problematic for him. I reviewed the side effects and potential toxicities for treatment with cisplatin and gemcitabine with him today. These include but are not limited to fatigue, malaise, nausea, vomiting, myelosuppression with potential neutropenia and risk for sepsis or , anemia and potential need for transfusion, thrombocytopenia and risk for hemorrhage or stroke, phlebitis, thromboembolic events including DVT, pulmonary embolus or stroke, hypersensitivity reaction or anaphylaxis, high-frequency hearing loss, nephropathy and renal failure, electrolyte disturbance, seizures, rash, headaches, mood swings, neuropathy, cognitive impairment or ?chemo brain,? as well as other potential concerns. He voices understanding, accepts the side- effects and risks discussed and consents to treatment as outlined. PLAN: 1. Meet with infusion nurse today for teaching, orientation and treatment. 2. Cycle 1, day 1 cisplatin 30 mg/m2 with gemcitabine 1000 mg/m2 IV Days 1, 8 repeated every 21 days. 3. Standard premedication. 4. Antiemetics and laxatives as needed. 5. Mouth rinses and neutropenic precautions. 6. Filgrastim support. 7. Transfuse PRBCs or platelets if indicated. 8. CBC, CMP, Mg, LDH, CEA, AFP and CA 19-9 today and prior to each cycle of treatment. 9. CBC, CMP and magnesium level day 8. 10. Repeat CT after 2 months of treatment. 11. Will send tissue block to [facility] for genomic profiling. 12. Return appointment in 1 week and prior to each cycle of treatment. 13. Referral pending with GI for management of hepatitis C. 14. Allopurinol 300 mg daily x 2 weeks. 15. Referral to Radiation Oncology to consider palliative treatment to right proximal femur. We would need to coordinate treatment since gemcitabine is a potent radiosensitizer. DICTATED BY MELVIN CALI MD MEDICAL ONCOLOGY AND HEMATOLOGY PN -Subjective Interval history: HEMATOLOGY/ONCOLOGY PROGRESS NOTE DATE OF SERVICE: October 03, 2017 PATIENT NAME: MAYRA LICONA DATE OF : 1950 PCP: IDENTIFICATION: This is a 67-year-old gentleman who returns with his Jennifer and daughter, Fatimah today to review plan for treatment. INTERVAL HISTORY: He returns today with his and daughter to begin treatment. Here to review final pathology report and finalize treatment plan. Please see recent note October 02, 2017. No new symptoms today. His final report including immunohistochemistry studies is now available and shows the tumor cells to stained positive for, cytokeratin 7 and for villin. Stain negative for : Cytokeratin 20, TTF-1, Napsin-A and for CDX2. 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 An enteric pulmonary immunophenotype cannot be completely excluded according to the report. Absence of chromogranin, synaptophysin and CD56 mitigate against a diagnosis of neuroendocrine carcinoma. - Patient Self-Reported Symptoms SR Constitution: Fatigue/Malaise SR respiratory issues: Coughing blood, Shortness of breath, Mucous SR Gastrointestinal issues: Constipation SR Genitourinary issues: Frequent urination SR Musculoskeletal issues: Back or neck pain, Difficulty walking SR Hematologic issues: Bleeding/bruising - Additional ROS Additional ROS: Review of systems: General: No fever, chills. HEENT: No vision change, epistaxis or dysphagia. Respiratory: As above. Cardiac: No chest pain, PND or orthopnea. GI: As above. : No flank pain or hematuria. Musculoskeletal: No new bone pain or pain in the right thigh. Neurologic: Negative. Results - Labs 10/02/17 09:16 10/03/17 09:12 Laboratory Last Values WBC 15.5 X10^3/uL (4.5-11.0) H 10/02/17 09:16 RBC 3.96 X10^6/uL (4.5-5.9) L 10/02/17 09:16 Hgb 12.3 g/dL (13.5-17.5) L 10/02/17 09:16 Hct 37.4 % (41-53) L 10/02/17 09:16 MCV 94.5 fL (80-100) 10/02/17 09:16 MCH 31.0 PG (26-34) 10/02/17 09:16 MCHC 32.8 % (30-36) 10/02/17 09:16 RDW 15.0 % (11.6-14.8) H 10/02/17 09:16 Plt Count 192 X10^3/uL (150-400) 10/02/17 09:16 Neut % (Auto) 74.1 % (50-75) 10/02/17 09:16 Lymph % (Auto) 15.4 % (25-40) L 10/02/17 09:16 [place] % (Auto) 8.0 % (3-14) 10/02/17 09:16 Eos % (Auto) 2.2 % (2-4) 10/02/17 09:16 Baso % (Auto) 0.3 % (0-2) 10/02/17 09:16 Neut # (Auto) 10558 /uL (7293-4889) H 10/02/17 09:16 Sodium 140 mmol/L (137-145) 10/03/17 09:12 Potassium 4.4 mmol/L (3.4-5.1) 10/03/17 09:12 Chloride 100 mmol/L (98-107) 10/03/17 09:12 Carbon Dioxide 36 mmol/L (22-32) H 10/03/17 09:12 BUN 21 mg/dL (9-20) H 10/03/17 09:12 Creatinine 0.70 mg/dL (0.66-1.25) 10/03/17 09:12 Estimated GFR > 60.0 mL/min (>60) 10/03/17 09:12 BUN/Creatinine Ratio 30.0 (6-22) H 10/03/17 09:12 Glucose 120 mg/dL (80-110) H 10/03/17 09:12 Calcium 8.7 mg/dL (8.4-10.2) 10/03/17 09:12 Total Bilirubin 1.1 mg/dL (0.2-1.3) 10/03/17 09:12 AST 82 IU/L (17-59) H 10/03/17 09:12 ALT 61 IU/L (21-72) 10/03/17 09:12 Alkaline Phosphatase 254 U/L (38-126) H 10/03/17 09:12 Lactate Dehydrogenase 2318 U/L (313-618) H 10/02/17 09:16 Total Protein 7.2 g/dL (6.3-8.2) 10/03/17 09:12 Albumin 3.5 g/dL (3.5-5.0) 10/03/17 09:12 Globulin 3.7 g/dL (1.7-4.1) 10/03/17 09:12 Albumin/Globulin Ratio 0.9 (1.0-2.8) L 10/03/17 09:12 Carcinoembryonic Ag 1.0 ng/mL (0.1-3.0) 10/03/17 09:12 - Imaging Additional studies: Procedures Closed [endoscopic] biopsy of large intestine (08/26/13) Home Medications and Allergies Home Medications Medication Instructions Recorded Confirmed Type [TUMERIC] 1 tab PO QAM #0 07/19/16 09/12/17 History azithromycin 250 mg tablet See Label Instructions PO .COMPLEX 09/07/17 09/25/17 Rx #6 tab tramadol 50 mg tablet 50 - 100 mg PO Q4-6H #180 tab 09/07/17 09/27/17 Rx amoxicillin-pot clavulanate 09/25/17 History triamcinolone acetonide 1 grant TOPICAL QHS PRN 09/25/17 History Allergies Allergy/AdvReac Type Severity Reaction Status Date / Time No Known Drug Allergies Allergy Verified 09/27/17 12:54 Exam Vital signs: Last Vital Signs Temp 98.5 F 10/02/17 09:42 Pulse 83 10/02/17 09:42 Resp 16 10/02/17 09:42 BP 142/78 H 10/02/17 09:42 Pulse Ox 95 10/02/17 09:42 - Constitutional positive chronically ill appearing, positive cooperative - Routine HEENT Exam Head: Present: normocephalic, atraumatic Eye: Present: EOMI, PERRL. Absent: conjunctival icterus, scleral injection, periorbital ecchymosis, periorbital swelling ENT: Present: mucous membranes moist - Routine Neck Exam Present: supple. Absent: lymphadenopathy - Routine Extremities Exam Absent: cyanosis, clubbing, edema - Routine Skin Exam Present: intact, pallor. Absent: cyanosis, erythema, mottling, petechiae, jaundice, rash, ecchymosis - Routine Neurological Exam Present: alert, oriented X3, normal speech. Absent: altered mental status, abnormal gait - Routine Psychiatric Exam Present: normal affect, normal thought process, cooperative, good judgment
[2017-10-08 15:28] LABS: Alpha Fetoprotein 2.3
[2017-10-10 09:00] VITALS: BP 133/74; PULSE 84; RESP 16; TEMP 36.6; O2SAT 97
[2017-10-10 09:15] LABS: Add Manual Diff / Slide Review NO; Basophils Percent Auto 1.4 % (0-2); Eosinophils Percent Auto 1.7 % (2-4); Hematocrit 29.9 % (41-53); Hemoglobin 10.2 g/dL (13.5-17.5); Lymphocytes Percent Auto 26.9 % (25-40); Mean Corpuscular HGB Conc 33.9 % (30-36); Mean Corpuscular Hemoglobin 31.9 PG (26-34); Mean Corpuscular Volume 93.9 fL (80-100); Monocytes Percent Auto 5.9 % (3-14); Neutrophils Absolute Auto 5300 /uL (3000-5900); Neutrophils Percent Auto 64.1 % (50-75); Red Blood Cell Count 3.19 X10^6/uL (4.5-5.9); Red Cell Distribution Width 14.9 % (11.6-14.8); White Blood Cell Count 8.3 X10^3/uL (4.5-11.0)
[2017-10-10 09:22] LABS: Alanine Aminotransferase 57 IU/L (21-72); Albumin 3.1 g/dL (3.5-5.0); Albumin Globulin Ratio 0.9 (1.0-2.8); Alkaline Phosphatase 205 U/L (38-126); Aspartate Aminotransferase 37 IU/L (17-59); BUN Creatinine Ratio 25.7 (6-22); Bilirubin Total 1.2 mg/dL (0.2-1.3); Blood Urea Nitrogen 18 mg/dL (9-20); Calcium 8.5 mg/dL (8.4-10.2); Carbon Dioxide 33 mmol/L (22-32); Chloride 100 mmol/L (98-107); Estimated Glomerular Filt Rate > 60.0 mL/min (>60); Globulin 3.4 g/dL (1.7-4.1); Glucose 99 mg/dL (80-110); HEMOLYSIS < 15 (0-50); Magnesium 2.1 mg/dL (1.6-2.3); Potassium 4.2 mmol/L (3.4-5.1); Sodium 139 mmol/L (137-145); Total Protein 6.5 g/dL (6.3-8.2)
[2017-10-10 09:51] LABS: Platelet Count 26 X10^3/uL (150-400); RBC Morphology Normal Morphology
--- NOTE | 2017-10-10 16:42 | ONC.PN ---
Assessment and Plan - Time Spent with Patient IMPRESSION: 1. Metastatic, poorly differentiated malignant neoplasm status post CT-guided liver biopsy September 25, 2017. 2. Lytic bone lesion right proximal femur. Asymptomatic. Bone scan 09/20/2017 and plain films 09/27/2017. 3. Bilateral pulmonary nodules with intermittent hemoptysis. 4. Former smoker. 5. Hepatitis-C. 6. Thrombocytopenia. 7. Anemia. 8. Weakness and fatigue. Received cycle 1, day 1 chemotherapy with cisplatin and gemcitabine on October 03, 2017. He noted significant fatigue for several days post treatment. Also ongoing difficulty with constipation. He did use suppositories for a couple of days and otherwise has been taking MiraLax. Symptoms are improving. Some nausea at home but no emesis reported and he did not take oral ondansetron following treatment last week. No hematochezia. He denies fever, chills, mouth sores or dysphagia. Still feeling tired with generalized malaise today. Due for cycle 1, day 8 however lab work with results available after his visit show platelet count down to 26,000. We will need to hold treatment today, recheck counts in 1 week and plan to proceed with treatment with dose modification pending the results. Also with underlying hepatitis-C. Labs today show T bili down from 1.4 to 1.2 with alk-phos 205, AST 37, ALT 57. Creatinine 0.70. I reviewed neutropenic precautions, symptom monitoring and reminded him to call in promptly if any new concerns arise. LDH 2318 and CA 19-9 376 prior to start of treatment. PLAN: 1. Hold chemotherapy today as discussed. 2. Monitor for new symptoms or concerns and call in as needed. 3. Transfuse RBCs or platelets if indicated. 4. Mouth rinses and neutropenic precautions. 5. Filgrastim support. 6. Antiemetics as needed. 7. Stool softeners and MiraLax for constipation. 8. Genomic profiling of tumor, sent to [facility]. 9. Referral to GI scheduled for management of hepatitis C. 10. Referral to Radiation Oncology scheduled for evaluation of right femur lytic lesion. 11. Return to clinic in 1 week. 12. Cycle 1, day 8 cisplatin and gemcitabine next week pending counts. Will need dose modification based on thrombocytopenia. 13. CBC, CMP prior to the visit. Magnesium, LDH, CEA, AFP and CA 19-9 prior to cycle 2. DICTATED BY MELVIN CALI MD MEDICAL ONCOLOGY AND HEMATOLOGY PN -Subjective Interval history: HEMATOLOGY/ONCOLOGY PROGRESS NOTE DATE OF SERVICE: October 10, 2017 PATIENT NAME: MAYRA LICONA DATE OF : 1950 PCP: IDENTIFICATION: This is a 67-year-old gentleman with metastatic carcinoma status post liver biopsy on October 01, 2017 which showed poorly differentiated malignant neoplasm with IHC studies felt to be most consistent with adenocarcinoma metastatic from upper gastrointestinal/pancreaticobiliary primary site. INTERVAL HISTORY: He returns today with his , Jennifer. Here for routine follow-up visit after starting chemotherapy last week. He received cycle 1, day 1 cisplatin and gemcitabine on October 03, 2017. Standard premedication. He tolerated the infusion well without acute issues however he did note significant fatigue particularly for the 1st several days following chemotherapy. Also struggling with chronic constipation symptoms for which she took suppositories as well as MiraLax. This has been improving the last several days. He denies mouth sores, vomiting or abdominal pain. No jaundice. Mainly fatigue and generalized weakness. He did note some nausea but no emesis and he did not actually take ondansetron or other home antiemetics. He denies headaches or new neurologic symptoms. No bleeding, bruising or rash. - Patient Self-Reported Symptoms SR Constitution: Fatigue/Malaise SR respiratory issues: Mucous SR Gastrointestinal issues: Constipation SR Genitourinary issues: Frequent urination SR Musculoskeletal issues: Back or neck pain, Difficulty walking SR Hematologic issues: Bleeding/bruising - Additional ROS Additional ROS: Review of systems: General: No fever, chills or night sweats. HEENT: No headache, vision change or dysphagia. Respiratory: Denies productive cough. Occasional hemoptysis unchanged. Cardiac: No chest pain, PND or orthopnea. GI: As above. : No flank pain, hematuria or dysuria. Musculoskeletal: No new bone pain. No swelling in the legs. Neurologic: Negative. Results - Labs 10/10/17 09:01 10/10/17 09:01 Laboratory Last Values WBC 8.3 X10^3/uL (4.5-11.0) 10/10/17 09:01 RBC 3.19 X10^6/uL (4.5-5.9) L 10/10/17 09:01 Hgb 10.2 g/dL (13.5-17.5) L 10/10/17 09:01 Hct 29.9 % (41-53) L 10/10/17 09:01 MCV 93.9 fL (80-100) 10/10/17 09:01 MCH 31.9 PG (26-34) 10/10/17 09:01 MCHC 33.9 % (30-36) 10/10/17 09:01 RDW 14.9 % (11.6-14.8) H 10/10/17 09:01 Plt Count 26 X10^3/uL (150-400) L* 10/10/17 09: Neut % (Auto) 64.1 % (50-75) 10/10/17 09:01 Lymph % (Auto) 26.9 % (25-40) 10/10/17 09:01 Sibley % (Auto) 5.9 % (3-14) 10/10/17 09:01 Eos % (Auto) 1.7 % (2-4) L 10/10/17 09: Baso % (Auto) 1.4 % (0-2) 10/10/17 09:01 Neut # (Auto) 5300 /uL (2790-3735) 10/10/17 09:01 RBC Morphology Normal morphology 10/10/17 09:01 Sodium 139 mmol/L (137-145) 10/10/17 09:01 Potassium 4.2 mmol/L (3.4-5.1) 10/10/17 09: Chloride 100 mmol/L (98-107) 10/10/17 09:01 Carbon Dioxide 33 mmol/L (22-32) H 10/10/17 09:01 BUN 18 mg/dL (9-20) 10/10/17 09:01 Creatinine 0.70 mg/dL (0.66-1.25) 10/10/17 09:01 Estimated GFR > 60.0 mL/min (>60) 10/10/17 09: BUN/Creatinine Ratio 25.7 (6-22) H 10/10/17 09:01 Glucose 99 mg/dL (80-110) 10/10/17 09:01 Calcium 8.5 mg/dL (8.4-10.2) 10/10/17 09:01 Magnesium 2.1 mg/dL (1.6-2.3) 10/10/17 09:01 Total Bilirubin 1.2 mg/dL (0.2-1.3) 10/10/17 09:01 AST 37 IU/L (17-59) 10/10/17 09:01 ALT 57 IU/L (21-72) 10/10/17 09:01 Alkaline Phosphatase 205 U/L (38-126) H 10/10/17 09:01 Lactate Dehydrogenase 2318 U/L (313-618) H 10/02/17 09:16 Total Protein 6.5 g/dL (6.3-8.2) 10/10/17 09:01 Albumin 3.1 g/dL (3.5-5.0) L 10/10/17 09:01 Globulin 3.4 g/dL (1.7-4.1) 10/10/17 09:01 Albumin/Globulin Ratio 0.9 (1.0-2.8) L 10/10/17 09:01 Alpha Fetoprotein 2.3 10/03/17 09:12 Carcinoembryonic Ag 1.0 ng/mL (0.1-3.0) 10/03/17 09:12 CA 19-9 Antigen 10/03/17 09:12 - Imaging Additional studies: Procedures Closed [endoscopic] biopsy of large intestine (08/26/13) Home Medications and Allergies Home Medications Medication Instructions Recorded Confirmed Type [TUMERIC] 1 tab PO QAM #0 07/19/16 09/12/17 History azithromycin 250 mg tablet See Label Instructions PO .COMPLEX 09/07/17 09/25/17 Rx #6 tab amoxicillin-pot clavulanate 09/25/17 History triamcinolone acetonide 1 grant TOPICAL QHS PRN 09/25/17 History tramadol 50 mg tablet 50 - 100 mg PO Q4-6H #180 tab 10/08/17 Rx Allergies Allergy/AdvReac Type Severity Reaction Status Date / Time No Known Drug Allergies Allergy Verified 09/27/17 12:54 Exam Vital signs: Last Vital Signs Temp 97.8 F 10/10/17 09:00 Pulse 84 10/10/17 09:00 Resp 16 10/10/17 09:00 BP 133/74 H 10/10/17 09:00 Pulse Ox 97 10/10/17 09:00 - Constitutional positive no acute distress, positive average body habitus, positive chronically ill appearing, positive cooperative - Routine HEENT Exam Head: Present: normocephalic, atraumatic. Absent: facial swelling Eye: Present: EOMI, PERRL, conjunctivae pink. Absent: conjunctival icterus, scleral injection, periorbital ecchymosis, periorbital swelling ENT: Present: mucous membranes moist, oropharynx clear - Routine Neck Exam Absent: JVD, lymphadenopathy, swelling - Routine Chest/Breast/Axilla Exam Chest wall exam standard: Absent: tenderness, mass - Routine Respiratory Exam Present: Clear to auscultation bilaterally. Absent: accessory muscle use, rales, rhonchi, wheezes - Routine Cardiovascular Exam Present: RRR, S1, S2. Absent: murmur, rubs, S3 - Routine Abdominal Exam Present: soft, normoactive bowel sounds. Absent: tenderness, distended, organomegaly Palpation/Percussion: Absent: hepatomegaly - Routine Extremities Exam Absent: cyanosis, clubbing, edema - Routine Back/Spine Exam Back/Spine: Absent: paraspinal tenderness, vertebral tenderness - Routine Skin Exam Present: intact. Absent: cyanosis, erythema, petechiae, jaundice, rash, ecchymosis - Routine Neurological Exam Present: alert, oriented X3, moving all extremities, normal speech. Absent: abnormal gait - Routine Psychiatric Exam Present: normal affect, normal thought process, cooperative, anxious
--- NOTE | 2017-10-11 13:05 | PC.NURSE ---
LATE NOTE FOR 10/10/17 @ 1649 called with concerns regarding pts recent coughing. Evidently he had cough so long and so hard that he coughed up a polyps. Returning the call, I spoke with the pt and he described this as hard tissue with what appeared to be vascular in nature. There was no after bleeding, no SOB and no distress. Pt was concerned that he had coughed up one of the nodules in his lungs. I placed the pt on hold and called the ED MD on duty to discuss what happened. She stated her father had cancer and was treated by Dr Rodriguez and he warned that something of this nature could happen. I explained no bleeding, SOB or distress. MD was comfortable with not having him come in for further workup. I explained to the Pt that if any of these symptoms were to develop especially bleeding and SOB, he was to immediately call 911 and not [address] to [address] or have someone else drive him to the ED. Pt agreed. Call ended
--- NOTE | 2017-10-17 15:06 | PC.NURSE ---
Spoke with Melinda from [facility] phone [phone]. Main goal: coordination of care. Vance is at [facility] and they are wanting to give him chemo (it was held last week due to low platelet count). Her question was that if they give him chemo today, can we give him chemo on day 8 based on their oncologists orders. Explained that the orders would need to be co-signed here by one of our oncologists. Asked whether or not they were changing the treatment plan or just continuing the Gemzar/Cisplat regimen that we were giving here. Nurse at this time said chemo orders hadn't been written yet and dictation wasn't in computer. Informed RN that pt does have an appt scheduled here with our new provider Dr Vance on 10/31; however, pt would be due for chemo on 10/24 so that first appt to establish care with Dr Vacne would need to be moved up. RN to fax recent provider note and chemo orders to our main fax number. Will notify front office staff of above discussion.
--- NOTE | 2017-10-19 09:22 | PC.NURSE ---
Addendum entered by Yeimy Barber R.N. 10/22/17 14:05: Pt is now schd with Dr Vance on 10/24 with possible tx. Had a long conversation with regarding pts recent visit to [facility]. I reminded her that these are only recommendations from Dr Fagan. Dr Vance would review them and determine at that time if he agreed. I explained that we had scheduled him for treatment as planned and recommended by [facility] pending Dr Ortega approval. Original Note: Received a call from Dr Gabino Fagan MD with [facility] regarding pts referral visit requested by Dr Avalos. Fax received with recommendations, labs and results of CT scan dated 10/17. He is schedule for his next gemzar/cisplatine on 10/24 and a f/u with Dr Vance on 10/31. His insurance is Medicare/[employer] which my present some issues. My question is can we move him for an MD visit on 10/24 rather than 10/[address] Vance would want to take a different direction with him?
[2017-10-24 09:48] LABS: Add Manual Diff / Slide Review NO; Basophils Percent Auto 0.3 % (0-2); Eosinophils Percent Auto 1.9 % (2-4); Hematocrit 31.5 % (41-53); Hemoglobin 10.2 g/dL (13.5-17.5); Mean Corpuscular HGB Conc 32.3 % (30-36); Mean Corpuscular Hemoglobin 30.3 PG (26-34); Mean Corpuscular Volume 93.8 fL (80-100); Monocytes Percent Auto 14.4 % (3-14); Neutrophils Absolute Auto 10400 /uL (3000-5900); Neutrophils Percent Auto 69.4 % (50-75); Platelet Count 279 X10^3/uL (150-400); Red Blood Cell Count 3.35 X10^6/uL (4.5-5.9); Red Cell Distribution Width 17.8 % (11.6-14.8)
[2017-10-24 10:00] VITALS: BP 145/70; PULSE 92; RESP 20; TEMP 36.8; O2SAT 95
[2017-10-24 10:00] LABS: Alanine Aminotransferase 43 IU/L (21-72); Albumin Globulin Ratio 0.9 (1.0-2.8); Alkaline Phosphatase 221 U/L (38-126); Aspartate Aminotransferase 61 IU/L (17-59); BUN Creatinine Ratio 16.7 (6-22); Bilirubin Total 1.1 mg/dL (0.2-1.3); Blood Urea Nitrogen 15 mg/dL (9-20); Calcium 8.2 mg/dL (8.4-10.2); Carbon Dioxide 34 mmol/L (22-32); Chloride 97 mmol/L (98-107); Estimated Glomerular Filt Rate > 60.0 mL/min (>60); Globulin 3.5 g/dL (1.7-4.1); Glucose 119 mg/dL (80-110); HEMOLYSIS < 15 (0-50); Magnesium 2.1 mg/dL (1.6-2.3); Potassium 4.4 mmol/L (3.4-5.1); Sodium 135 mmol/L (137-145); Total Protein 6.5 g/dL (6.3-8.2)
[2017-10-24] MEDS: SODIUM CHLORIDE 0.9% 1,000 ML 500 ML IV (11:22)
[2017-10-24] MEDS: DEXAMETHASONE 12 MG in SODIUM CHLORIDE 0.9% 50 ML 212 ML IV (11:40)
[2017-10-24] MEDS: LORazepam 0.5 MG TABLET PO (11:41)
[2017-10-24] MEDS: ONDANSETRON 16 MG in SODIUM CHLORIDE 0.9% 50 ML 232 ML IV (12:03)
[2017-10-24] MEDS: FOSAPREPITANT 150 MG in SODIUM CHLORIDE 0.9% 150 ML 300 ML IV (12:33)
--- NOTE | 2017-10-24 12:54 | ONC.PN ---
Assessment and Plan (1) Metastatic cancer Problem details: A 67-year-old man with widely metastatic carcinoma of unknown primary though possibly GI source. 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 He did have a foundation 1 test sent but we do not have results yet. There was some speculation that he might have a lung primary although this does not really fit with his immunohistochemistry. I think it would be helpful to check a PD L1. If that is present at the a substantial level, he may respond to immunotherapy if he fails to respond to chemotherapy. He also had significant thrombocytopenia after his 1st dose of chemotherapy. I will proceed with his 2nd cycle of treatment today but with a dose reduction of both the gemcitabine and cis-little traverse. Hopefully he will tolerate that better. It is too soon to tell whether he is responding or not. He does have a moderate pleural effusion and some shortness of breath. If his symptoms worsen, a thoracentesis may be helpful. 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 Previous treatment: 1. One dose of cisplatin and gemcitabine with day 8 treatment held due to thrombocytopenia. INTERVAL HISTORY: He returns today with his , Jennifer. Since his last visit here, he has been feeling about the same. He did go to [place] for a 2nd opinion and they recommended continue with the same chemotherapy with a dose reduction. He does have some ongoing dyspnea on exertion. He is able to walk about 150 ft. He is not really having any pain in the chest. He has had a cough. It was productive of some bloody sputum but that has improved over the last week or so. He denies any fevers or chills. His appetite has been fair. He has had some nausea but no vomiting. He has been tending towards constipation. He is anxious to continue his chemotherapy. - Patient Self-Reported Symptoms SR Constitution: Night Sweats SR respiratory issues: Shortness of breath, Difficulty breathing SR Gastrointestinal issues: Constipation SR Genitourinary issues: Frequent urination SR Musculoskeletal issues: Muscle pain or cramps, Back or neck pain SR Hematologic issues: Bleeding/bruising Results - Labs Laboratory Last Values WBC 15.0 X10^3/uL (4.5-11.0) H 10/24/17 09:40 RBC 3.35 X10^6/uL (4.5-5.9) L 10/24/17 09:40 Hgb 10.2 g/dL (13.5-17.5) L 10/24/17 09:40 Hct 31.5 % (41-53) L 10/24/17 09:40 MCV 93.8 fL (80-100) 10/24/17 09:40 MCH 30.3 PG (26-34) 10/24/17 09:40 MCHC 32.3 % (30-36) 10/24/17 09:40 RDW 17.8 % (11.6-14.8) H 10/24/17 09:40 Plt Count 279 X10^3/uL (150-400) 10/24/17 09:40 Neut % (Auto) 69.4 % (50-75) 10/24/17 09:40 Lymph % (Auto) 14.0 % (25-40) L 10/24/17 09:40 Bailey % (Auto) 14.4 % (3-14) H 10/24/17 09:40 Eos % (Auto) 1.9 % (2-4) L 10/24/17 09:40 Baso % (Auto) 0.3 % (0-2) 10/24/17 09:40 Neut # (Auto) 14249 /uL (7521-9370) H 10/24/17 09:40 RBC Morphology Normal morphology 10/10/17 09:01 Sodium 135 mmol/L (137-145) L 10/24/17 09:40 Potassium 4.4 mmol/L (3.4-5.1) 10/24/17 09:40 Chloride 97 mmol/L (98-107) L 10/24/17 09:40 Carbon Dioxide 34 mmol/L (22-32) H 10/24/17 09:40 BUN 15 mg/dL (9-20) 10/24/17 09:40 Creatinine 0.90 mg/dL (0.66-1.25) 10/24/17 09:40 Estimated GFR > 60.0 mL/min (>60) 10/24/17 09:40 BUN/Creatinine Ratio 16.7 (6-22) 10/24/17 09:40 Glucose 119 mg/dL (80-110) H 10/24/17 09:40 Calcium 8.2 mg/dL (8.4-10.2) L 10/24/17 09:40 Magnesium 2.1 mg/dL (1.6-2.3) 10/24/17 09:40 Total Bilirubin 1.1 mg/dL (0.2-1.3) 10/24/17 09:40 AST 61 IU/L (17-59) H 10/24/17 09:40 ALT 43 IU/L (21-72) 10/24/17 09:40 Alkaline Phosphatase 221 U/L (38-126) H 10/24/17 09:40 Lactate Dehydrogenase 2318 U/L (313-618) H 10/02/17 09:16 Total Protein 6.5 g/dL (6.3-8.2) 10/24/17 09:40 Albumin 3.0 g/dL (3.5-5.0) L 10/24/17 09:40 Globulin 3.5 g/dL (1.7-4.1) 10/24/17 09:40 Albumin/Globulin Ratio 0.9 (1.0-2.8) L 10/24/17 09:40 Alpha Fetoprotein 2.3 10/03/17 09:12 Carcinoembryonic Ag 1.0 ng/mL (0.1-3.0) 10/03/17 09:12 CA 19-9 Antigen 10/03/17 09:12 - Imaging CT scan - abdomen: image reviewed CT scan - chest: image reviewed CT scan - pelvis: image reviewed (He has extensive metastatic disease with extensive bilateral pulmonary nodules, moderate right-sided pleural effusion extensive liver metastases.) Additional studies: Procedures Closed [endoscopic] biopsy of large intestine (08/26/13) Home Medications and Allergies Home Medications Medication Instructions Recorded Confirmed Type [TUMERIC] 1 tab PO QAM #0 07/19/16 10/24/17 History azithromycin 250 mg tablet See Label Instructions PO .COMPLEX 09/07/17 10/24/17 Rx #6 tab amoxicillin-pot clavulanate 09/25/17 History triamcinolone acetonide 1 grant TOPICAL QHS PRN 09/25/17 10/24/17 History tramadol 50 mg tablet 50 - 100 mg PO Q4-6H #180 tab 10/08/17 10/24/17 Rx Allergies Allergy/AdvReac Type Severity Reaction Status Date / Time No Known Drug Allergies Allergy Verified 09/27/17 12:54 Exam Vital signs: Last Vital Signs Temp 98.2 F 10/24/17 10:00 Pulse 92 H 10/24/17 10:00 Resp 20 10/24/17 10:00 BP 145/70 H 10/24/17 10:00 Pulse Ox 95 10/24/17 10:00 - Constitutional positive no acute distress, positive average body habitus - Routine HEENT Exam Head: Present: normocephalic, atraumatic Eye: Present: EOMI, PERRL. Absent: conjunctival icterus, scleral injection ENT: Present: mucous membranes moist, oropharynx clear - Routine Neck Exam Present: supple. Absent: lymphadenopathy, thyromegaly - Routine Respiratory Exam Present: decreased breath sounds (At the right base about a quarter the way up. He also has associated dullness to percussion.). Absent: rales, wheezes - Routine Cardiovascular Exam Present: RRR, S1, S2. Absent: murmur - Routine Abdominal Exam Present: soft, normoactive bowel sounds, distended, organomegaly (He does have a palpable of liver mass in the mid upper abdomen. It is mildly tender.) Palpation/Percussion: Absent: fluid waves - Routine Extremities Exam Present: edema (Trace bilateral lower extremity edema.). Absent: cyanosis, clubbing - Routine Skin Exam Present: intact. Absent: erythema, petechiae, rash - Routine Neurological Exam Present: alert, oriented X3 - Routine Psychiatric Exam Present: normal affect, normal thought process
[2017-10-24] MEDS: GEMCITABINE IV (13:27)
[2017-10-24] MEDS: SODIUM CHLORIDE 0.9% IV (13:27)
[2017-10-24] MEDS: MANNITOL IV (14:11)
[2017-10-24] MEDS: [UNRECOGNIZED DRUG - OTHER] IV (14:11)
[2017-10-24] MEDS: POTASSIUM CHLORIDE IV (14:11)
[2017-10-24] MEDS: CISPLATIN IV (14:11)
[2017-10-31 09:16] LABS: Add Manual Diff / Slide Review NO; Basophils Percent Auto 1.4 % (0-2); Eosinophils Percent Auto 1.1 % (2-4); Hematocrit 28.8 % (41-53); Hemoglobin 9.3 g/dL (13.5-17.5); Mean Corpuscular HGB Conc 32.2 % (30-36); Mean Corpuscular Hemoglobin 30.6 PG (26-34); Mean Corpuscular Volume 94.9 fL (80-100); Monocytes Percent Auto 6.4 % (3-14); Neutrophils Absolute Auto 8200 /uL (3000-5900); Neutrophils Percent Auto 71.1 % (50-75); Red Blood Cell Count 3.04 X10^6/uL (4.5-5.9); Red Cell Distribution Width 17.4 % (11.6-14.8); White Blood Cell Count 11.5 X10^3/uL (4.5-11.0)
--- NOTE | 2017-10-31 09:21 | PC.NURSE ---
Pt is here today for Gemzar/Cisplatin. You last saw him on 10/24. He is having difficulty sleeping so would like something to help. Also, his tramadol is no longer working for pain and would something new.
--- NOTE | 2017-10-31 09:25 | PC.NURSE ---
Received critical value from Jesús in lab; platelet 23. manufacturing technology analyst aware.
[2017-10-31 09:39] LABS: Macrocytosis 1+; Platelet Count 23 X10^3/uL (150-400); Polychromasia 1+
--- NOTE | 2017-11-02 11:08 | ONC.SCHED ---
CALLED [facility] TO START PRE-AUTH FOR ONDANSETRON. REF#[id number] PHONE NUMBER FOR PHARMACY IS [phone] [facility] ID#[id number]
--- NOTE | 2017-11-02 12:01 | PC.NURSE ---
Jennifer Duffy called to say Vance tried to warehouse order picker his Zofran prescription and it was over a thousand dollars. I found the electronic order by Dr. Vance and it is for a film form that dissolves instead of the pill that disolves. I called in to [employer] the dissolving pill form that is covered by their insurance. She also said Vance had blood when he had a bowel movement. Only a small amount of blood and has had no further bleeding. I instructed them to please go to the emergency room if there are any more signs of bleeding over the long weekend. I explained what petechiae looks like to Jennifer. She understood. Our provider has finished for the day here so the emergency room is his only option. He is coming in Sunday for a CBC check.
[2017-11-06 09:20] LABS: Add Manual Diff / Slide Review NO; Basophils Percent Auto 1.5 % (0-2); Eosinophils Percent Auto 2.3 % (2-4); Hematocrit 26.6 % (41-53); Hemoglobin 8.4 g/dL (13.5-17.5); Lymphocytes Percent Auto 16.1 % (25-40); Mean Corpuscular HGB Conc 31.7 % (30-36); Mean Corpuscular Hemoglobin 31.2 PG (26-34); Mean Corpuscular Volume 98.6 fL (80-100); Monocytes Percent Auto 7.7 % (3-14); Neutrophils Absolute Auto 9700 /uL (3000-5900); Neutrophils Percent Auto 72.4 % (50-75); Platelet Count 109 X10^3/uL (150-400); White Blood Cell Count 13.4 X10^3/uL (4.5-11.0)
--- NOTE | 2017-11-06 09:58 | ONC.NAV ---
Description: T/C-Care Coordination re: Ondansetron Activity: This CLINICAL OPERATIONS CONSULTANT clarified forms sent by pt's pharmacy that were denying his ondansetron tablets. Confirmed with the pharmacy that they can be re-billed to his Medicare Part B. Relayed this information to patient during his visit today.
[2017-11-06 10:31] VITALS: BP 142/78; PULSE 104; RESP 18; TEMP 36.8; O2SAT 96
--- NOTE | 2017-11-06 12:45 | P.PNONC_ITS ---
Assessment and Plan (1) Metastatic cancer Problem details: A 67-year-old man with widely metastatic carcinoma of unknown primary though possibly GI source. 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 He did have a foundation 1 test sent but we do not have results yet. He has been unable to receive his chemotherapy on schedule due to thrombocytopenia despite dose reduction. I think he may do better on an every other week schedule. He should be able to go ahead with his chemotherapy tomorrow. I would anticipate that he will be due for a CT scan in about 4-6 weeks if he can stay on a regular treatment. He does have some increasing dyspnea on exertion. His physical exam does not suggest any worsening of his pleural effusion. He is developing a more significant anemia. I do not think that it is bad enough to require transfusion yet but if it worsens he may benefit from red cells. He has had chronic pain which has been well controlled on Toradol but he has been needing a little bit extra lately. I did take the liberty of refilling his prescription. If it is okay with his primary physician, we could continue doing that here. 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 Previous treatment: 1. Two doses of cisplatin and gemcitabine complicated by thrombocytopenia requiring dose reduction. INTERVAL HISTORY: He returns today with his , Jennifer. Since his last visit here, he received his 2nd dose of chemotherapy. Again, day 8 was held due to thrombocytopenia. The patient reports that he has noted some bruising. He also had 1 episode of blood in the stool. It has not recurred. He is not having any abdominal pain. He denies any nausea or vomiting. No fevers chills or sweats. He has been bothered by difficulty sleeping. He tried some trazodone which was ineffective. He also has been using a little bit extra tramadol at bedtime which she finds helpful. However, he has recently run out of his tramadol a few days early and feels like he may beginning to withdrawal. He did try some oxycodone but did not like the side effects and has not taken any more. He has noted some increased dyspnea on exertion. He has had a little bit of dizziness when standing. No pain in the chest or palpitations. He has not noted any adenopathy. He is somewhat frustrated that his chemotherapy is needed to be held. - Patient Self-Reported Symptoms SR Constitution: Night Sweats SR respiratory issues: Shortness of breath, Difficulty breathing SR Gastrointestinal issues: Constipation SR Genitourinary issues: Frequent urination SR Musculoskeletal issues: Muscle pain or cramps, Back or neck pain SR Hematologic issues: Bleeding/bruising Results - Labs Laboratory Last Values WBC 13.4 X10^3/uL (4.5-11.0) H 11/06/17 08:58 RBC 2.70 X10^6/uL (4.5-5.9) L 11/06/17 08:58 Hgb 8.4 g/dL (13.5-17.5) L 11/06/17 08:58 Hct 26.6 % (41-53) L 11/06/17 08:58 MCV 98.6 fL (80-100) D 11/06/17 08:58 MCH 31.2 PG (26-34) 11/06/17 08:58 MCHC 31.7 % (30-36) 11/06/17 08:58 RDW 20.0 % (11.6-14.8) H 11/06/17 08:58 Plt Count 109 X10^3/uL (150-400) L 11/06/17 08:58 Neut % (Auto) 72.4 % (50-75) 11/06/17 08:58 Lymph % (Auto) 16.1 % (25-40) L 11/06/17 08:58 [place] % (Auto) 7.7 % (3-14) 11/06/17 08:58 Eos % (Auto) 2.3 % (2-4) 11/06/17 08:58 Baso % (Auto) 1.5 % (0-2) 11/06/17 08:58 Neut # (Auto) 9700 /uL (0774-0195) H 11/06/17 08:58 RBC Morphology Not Reportable 10/31/17 08:57 Polychromasia 1+ H 10/31/17 08:57 Macrocytosis 1+ H 10/31/17 08:57 Sodium 135 mmol/L (137-145) L 10/24/17 09:40 Potassium 4.4 mmol/L (3.4-5.1) 10/24/17 09:40 Chloride 97 mmol/L (98-107) L 10/24/17 09:40 Carbon Dioxide 34 mmol/L (22-32) H 10/24/17 09:40 BUN 15 mg/dL (9-20) 10/24/17 09:40 Creatinine 0.90 mg/dL (0.66-1.25) 10/24/17 09:40 Estimated GFR > 60.0 mL/min (>60) 10/24/17 09:40 BUN/Creatinine Ratio 16.7 (6-22) 10/24/17 09:40 Glucose 119 mg/dL (80-110) H 10/24/17 09:40 Calcium 8.2 mg/dL (8.4-10.2) L 10/24/17 09:40 Magnesium 2.1 mg/dL (1.6-2.3) 10/24/17 09:40 Total Bilirubin 1.1 mg/dL (0.2-1.3) 10/24/17 09:40 AST 61 IU/L (17-59) H 10/24/17 09:40 ALT 43 IU/L (21-72) 10/24/17 09:40 Alkaline Phosphatase 221 U/L (38-126) H 10/24/17 09:40 Lactate Dehydrogenase 2318 U/L (313-618) H 10/02/17 09:16 Total Protein 6.5 g/dL (6.3-8.2) 10/24/17 09:40 Albumin 3.0 g/dL (3.5-5.0) L 10/24/17 09:40 Globulin 3.5 g/dL (1.7-4.1) 10/24/17 09:40 Albumin/Globulin Ratio 0.9 (1.0-2.8) L 10/24/17 09:40 Alpha Fetoprotein 2.3 10/03/17 09:12 Carcinoembryonic Ag 1.0 ng/mL (0.1-3.0) 10/03/17 09:12 CA 19-9 Antigen 10/03/17 09:12 - Imaging Additional studies: Procedures Closed [endoscopic] biopsy of large intestine (08/26/13) Home Medications and Allergies Home Medications Medication Instructions Recorded Confirmed Type [TUMERIC] 1 tab PO QAM #0 07/19/16 11/06/17 History azithromycin 250 mg tablet See Label Instructions PO .COMPLEX 09/07/17 11/06/17 Rx #6 tab amoxicillin-pot clavulanate 09/25/17 History triamcinolone acetonide 1 grant TOPICAL QHS PRN 09/25/17 11/06/17 History ondansetron [Zuplenz] 8 mg PO Q8-12H PRN 30 Days #20 ea 10/31/17 11/06/17 Rx oxycodone-acetaminophen 1 tab PO Q4-6H PRN 30 Days #30 tab 10/31/17 11/06/17 Rx trazodone 100 mg PO ONCE HS PRN 30 Days #30 10/31/17 11/06/17 Rx tab tramadol 50 mg tablet 50 - 100 mg PO Q4-6H #180 tab 11/02/17 11/06/17 Rx tramadol 50 mg PO Q4-6H PRN 30 Days #240 tab 11/06/17 Rx Allergies Allergy/AdvReac Type Severity Reaction Status Date / Time No Known Drug Allergies Allergy Verified 09/27/17 12:54 Exam Vital signs: Last Vital Signs Temp 98.2 F 11/06/17 10:31 Pulse 104 H 11/06/17 10:31 Resp 18 11/06/17 10:31 BP 142/78 H 11/06/17 10:31 Pulse Ox 96 11/06/17 10:31 - Constitutional positive no acute distress, positive obese - Routine HEENT Exam Head: Present: normocephalic, atraumatic Eye: Present: EOMI, PERRL. Absent: conjunctival icterus, scleral injection ENT: Present: mucous membranes moist, oropharynx clear - Routine Neck Exam Present: supple. Absent: lymphadenopathy, thyromegaly - Routine Respiratory Exam Present: Clear to auscultation bilaterally. Absent: rales, wheezes - Routine Cardiovascular Exam Present: RRR, S1, S2. Absent: murmur - Routine Abdominal Exam Present: soft, normoactive bowel sounds, organomegaly Comments: The liver edge is palpable 2-3 fingerbreadths below the costal margin. - Routine Extremities Exam Absent: cyanosis, clubbing, edema - Routine Skin Exam Present: intact. Absent: petechiae, rash - Routine Neurological Exam Present: alert, oriented X3
[2017-11-07 09:31] LABS: Add Manual Diff / Slide Review NO; Eosinophils Percent Auto 2.8 % (2-4); Hematocrit 25.3 % (41-53); Hemoglobin 8.1 g/dL (13.5-17.5); Lymphocytes Percent Auto 12.2 % (25-40); Mean Corpuscular HGB Conc 32.1 % (30-36); Mean Corpuscular Hemoglobin 31.3 PG (26-34); Mean Corpuscular Volume 97.7 fL (80-100); Monocytes Percent Auto 12.7 % (3-14); Neutrophils Absolute Auto 8300 /uL (3000-5900); Neutrophils Percent Auto 71.3 % (50-75); Platelet Count 143 X10^3/uL (150-400); Red Blood Cell Count 2.59 X10^6/uL (4.5-5.9); Red Cell Distribution Width 20.6 % (11.6-14.8); White Blood Cell Count 11.7 X10^3/uL (4.5-11.0)
[2017-11-07 09:44] VITALS: BP 146/76; PULSE 97; RESP 18; TEMP 36.7; O2SAT 94
[2017-11-07 10:17] LABS: Anisocytosis 2+
[2017-11-07] MEDS: SODIUM CHLORIDE 0.9% 1,000 ML 500 ML IV (10:40)
[2017-11-07] MEDS: LORazepam 0.5 MG TABLET PO (10:40)
[2017-11-07] MEDS: DEXAMETHASONE 12 MG in SODIUM CHLORIDE 0.9% 50 ML 212 ML IV (10:40)
[2017-11-07] MEDS: FOSAPREPITANT 150 MG in SODIUM CHLORIDE 0.9% 150 ML 300 ML IV (11:11)
[2017-11-07] MEDS: ONDANSETRON 16 MG in SODIUM CHLORIDE 0.9% 50 ML 232 ML IV (11:46)
[2017-11-07] MEDS: GEMCITABINE IV (12:44)
[2017-11-07] MEDS: SODIUM CHLORIDE 0.9% IV (12:44)
--- NOTE | 2017-11-07 12:51 | PC.NURSE ---
Per Dr Vance, pt can come in for a cbc check if he starts feeling symptomatic from his anemia; otherwise, pt is scheduled for his next lab check on 11/14. Reviewed with pt some signs/symptoms of anemia that would signal to him that his body is not tolerating his low red cell count. Pt verbalized understanding and states he will call with any symptoms. He understands he would need to go to ER over the weekend should he become symptomatic when the cancer center is closed.
[2017-11-07] MEDS: POTASSIUM CHLORIDE IV (13:30)
[2017-11-07] MEDS: CISPLATIN IV (13:30)
[2017-11-07] MEDS: MANNITOL IV (13:30)
[2017-11-07] MEDS: [UNRECOGNIZED DRUG - OTHER] IV (13:30)
--- NOTE | 2017-11-13 13:28 | ONC.SCHED ---
Ondansetron-prior authroization submitted to cover my meds.
[2017-11-14] VITALS (7 sets, daily range): BP systolic 114–132; BP diastolic 62–72; PULSE 84–102; RESP 18–24; TEMP 36.6–37; O2SAT 94
--- NOTE | 2017-11-14 08:06 | ONC.SCHED ---
Ondansetron-[facility] authorized 11/13/2017-11/12/2117
[2017-11-14 09:29] LABS: Hemoglobin 7.2 g/dL (13.5-17.5); Mean Corpuscular HGB Conc 32.6 % (30-36); Mean Corpuscular Hemoglobin 31.8 PG (26-34); Mean Corpuscular Volume 97.5 fL (80-100); Red Blood Cell Count 2.25 X10^6/uL (4.5-5.9); Red Cell Distribution Width 20.1 % (11.6-14.8)
[2017-11-14 09:38] LABS: Add Manual Diff / Slide Review YES; Platelet Count 13 X10^3/uL (150-400)
[2017-11-14 09:44] LABS: Alanine Aminotransferase 33 IU/L (21-72); Albumin 2.4 g/dL (3.5-5.0); Albumin Globulin Ratio 0.8 (1.0-2.8); Alkaline Phosphatase 147 U/L (38-126); Aspartate Aminotransferase 21 IU/L (17-59); BUN Creatinine Ratio 33.3 (6-22); Bilirubin Total 1.6 mg/dL (0.2-1.3); Blood Urea Nitrogen 20 mg/dL (9-20); Calcium 7.8 mg/dL (8.4-10.2); Carbon Dioxide 35 mmol/L (22-32); Chloride 99 mmol/L (98-107); Estimated Glomerular Filt Rate > 60.0 mL/min (>60); Globulin 3.2 g/dL (1.7-4.1); Glucose 140 mg/dL (80-110); HEMOLYSIS < 15 (0-50); Magnesium 1.9 mg/dL (1.6-2.3); Potassium 3.9 mmol/L (3.4-5.1); Sodium 141 mmol/L (137-145); Total Protein 5.6 g/dL (6.3-8.2)
--- NOTE | 2017-11-14 09:58 | P.PNONC_ITS ---
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 Previous treatment: 1. 3 doses of cisplatin and gemcitabine complicated by thrombocytopenia requiring dose reduction. He is currently on an every other week schedule. INTERVAL HISTORY: He returns today with his , Jennifer. Since his last visit here, he received his 3rd dose of chemotherapy. Over the last week, he has continued to feel weak. He has had dyspnea on exertion but not at rest. 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 He is not having any pain in the chest or cough. He denies any fevers or chills. His appetite has been low but he is drinking plenty of fluids. He did try some marijuana extract which did help with his appetite. He has had some nausea and 1 episode of emesis. It was relieved with oral Zofran. He also has noted some constipation and is planning on taking some MiraLax. His back pain has been stable with the tramadol. He denies any new aches or pains. His medications include Zofran trazodone tramadol - Patient Self-Reported Symptoms SR Constitution: Night Sweats SR respiratory issues: Mucous SR Gastrointestinal issues: Constipation SR Genitourinary issues: Frequent urination SR Musculoskeletal issues: Muscle pain or cramps, Back or neck pain SR Hematologic issues: Bleeding/bruising - Additional ROS Additional ROS: He does have dyspnea on exertion but not at rest. He has not had any dizziness or lightheadedness. He has not had any epistaxis or gingival bleeding. No blood in the urine or stool. Home Medications and Allergies Home Medications Medication Instructions Recorded Confirmed Type triamcinolone acetonide 1 grant TOPICAL QHS PRN 09/25/17 11/06/17 History ondansetron [Zuplenz] 8 mg PO Q8-12H PRN 30 Days #20 ea 10/31/17 11/06/17 Rx trazodone 100 mg PO ONCE HS PRN 30 Days #30 10/31/17 11/06/17 Rx tab tramadol 50 mg tablet 50 - 100 mg PO Q4-6H #180 tab 11/02/17 11/06/17 Rx tramadol 50 mg PO Q4-6H PRN 30 Days #240 tab 11/06/17 Rx polyethylene glycol 3350 [Miralax] 1.5 g/kg PO DAILY 11/14/17 11/14/17 History Allergies Allergy/AdvReac Type Severity Reaction Status Date / Time No Known Drug Allergies Allergy Verified 09/27/17 12:54 Exam Vital signs: Last Vital Signs Temp 98.0 F 11/14/17 09:34 Pulse 102 H 11/14/17 09:34 Resp 19 11/14/17 09:34 BP 132/72 11/14/17 09:34 Pulse Ox 94 11/14/17 09:34 - Constitutional positive no acute distress, positive average body habitus - Routine HEENT Exam Head: Present: normocephalic, atraumatic Eye: Present: EOMI, PERRL. Absent: conjunctival icterus, scleral injection ENT: Present: mucous membranes moist, oropharynx clear - Routine Neck Exam Present: supple. Absent: lymphadenopathy, thyromegaly - Routine Respiratory Exam Present: diminished air movement (He has decreased breath sounds at the right base about a [address] up. There is some dullness to percussion as well. There is no tenderness in the chest wall. No wheezes or rales.) - Routine Cardiovascular Exam Present: RRR, S1, S2. Absent: murmur - Routine Abdominal Exam Present: soft, normoactive bowel sounds, organomegaly (The liver edge is palpable about 8-10 cm below the costal margin a mildly tender.). Absent: tenderness - Routine Extremities Exam Present: edema (He has 1+ bilateral lower extremity edema.). Absent: cyanosis, clubbing - Routine Skin Exam Present: intact, pallor. Absent: petechiae - Routine Neurological Exam Present: alert, oriented X3 - Routine Psychiatric Exam Present: normal affect, normal thought process Results - Labs Laboratory Last Values WBC 9.0 X10^3/uL (4.5-11.0) 11/14/17 09:17 RBC 2.25 X10^6/uL (4.5-5.9) L 11/14/17 09:17 Hgb 7.2 g/dL (13.5-17.5) L 11/14/17 09:17 Hct 22.0 % (41-53) L 11/14/17 09:17 MCV 97.5 fL (80-100) 11/14/17 09:17 MCH 31.8 PG (26-34) 11/14/17 09:17 MCHC 32.6 % (30-36) 11/14/17 09:17 RDW 20.1 % (11.6-14.8) H 11/14/17 09:17 Plt Count 13 X10^3/uL (150-400) L* 11/14/17 09:17 Neut % (Auto) Not Reportable 11/14/17 09:17 Lymph % (Auto) Not Reportable 11/14/17 09:17 [place] % (Auto) Not Reportable 11/14/17 09:17 Eos % (Auto) Not Reportable 11/14/17 09:17 Baso % (Auto) Not Reportable 11/14/17 09:17 Neut # (Auto) 8300 /uL (7985-4799) H 11/07/17 09:22 RBC Morphology Not Reportable 11/07/17 09:22 Polychromasia 1+ H 10/31/17 08:57 Anisocytosis 2+ H 11/07/17 09:22 Macrocytosis 1+ H 10/31/17 08:57 Sodium 141 mmol/L (137-145) 11/14/17 09:17 Potassium 3.9 mmol/L (3.4-5.1) 11/14/17 09:17 Chloride 99 mmol/L (98-107) 11/14/17 09:17 Carbon Dioxide 35 mmol/L (22-32) H 11/14/17 09:17 BUN 20 mg/dL (9-20) 11/14/17 09:17 Creatinine 0.60 mg/dL (0.66-1.25) L 11/14/17 09:17 Estimated GFR > 60.0 mL/min (>60) 11/14/17 09:17 BUN/Creatinine Ratio 33.3 (6-22) H 11/14/17 09:17 Glucose 140 mg/dL (80-110) H 11/14/17 09:17 Calcium 7.8 mg/dL (8.4-10.2) L 11/14/17 09:17 Magnesium 1.9 mg/dL (1.6-2.3) 11/14/17 09:17 Total Bilirubin 1.6 mg/dL (0.2-1.3) H 11/14/17 09:17 AST 21 IU/L (17-59) 11/14/17 09:17 ALT 33 IU/L (21-72) 11/14/17 09:17 Alkaline Phosphatase 147 U/L (38-126) H 11/14/17 09:17 Lactate Dehydrogenase 2318 U/L (313-618) H 10/02/17 09:16 Total Protein 5.6 g/dL (6.3-8.2) L 11/14/17 09:17 Albumin 2.4 g/dL (3.5-5.0) L 11/14/17 09:17 Globulin 3.2 g/dL (1.7-4.1) 11/14/17 09:17 Albumin/Globulin Ratio 0.8 (1.0-2.8) L 11/14/17 09:17 Alpha Fetoprotein 2.3 10/03/17 09:12 Carcinoembryonic Ag 1.0 ng/mL (0.1-3.0) 10/03/17 09:12 CA 19-9 Antigen 10/03/17 09:12 - Imaging Additional studies: Procedures Closed [endoscopic] biopsy of large intestine (08/26/13) Assessment and Plan (1) Metastatic cancer Problem details: A 67-year-old man with widely metastatic carcinoma of unknown primary although is most consistent with a cholangiocarcinoma. He is having significant myelosuppression from his chemotherapy. Hopefully he will tolerate the every other week dosing schedule better and be able to stay on treatment more regularly. He will be due for his next dose of treatment next week assuming his platelet count has recovered sufficiently. He will be due for a CT scan to assess response I think sometime is an early to mid December. He does have some increasing dyspnea on exertion. His physical exam does not suggest any worsening of his pleural effusion. He is developing a more significant anemia. His hematocrit today is 22. We will plan on transfusing 2 units of red cells. His platelet count is 13 but he is not having any bleeding and his platelet count has bounced back fairly quickly previously. I think he probably does not require transfusion of platelets at this point. He has had chronic pain which has been well controlled on tramadol. He will continue with his regimen. Return to clinic here in about 1 week for follow up. If his platelet count has recovered sufficiently will go ahead with his next dose of chemotherapy then. Current visit: No Status: Acute
[2017-11-14 10:08] LABS: Neutrophils Absolute Manual 4590 /uL (3000-5900); Nucleated Red Blood Cells 5 #/Diff; Total Cells Counted 100
[2017-11-14 10:09] LABS: Anisocytosis 2+
[2017-11-14 10:10] LABS: Poikilocytosis 1+; Polychromasia 3+
[2017-11-14 10:13] LABS: Macrocytosis 1+
[2017-11-14 10:17] LABS: Rouleaux 1+
[2017-11-14 10:19] LABS: Platelet Estimate Decreased on smear
--- NOTE | 2017-11-14 11:12 | TAR.TRANSNT ---
Start time slightly over 15 minutes as consent still needed to be explained and signed.
[2017-11-14] MEDS: FUROSEMIDE 20 MG/2 ML VIAL IV (13:52)
[2017-11-14] MEDS: SODIUM CHLORIDE 0.9% 250 ML 21 ML IV (13:52)
[2017-11-21 08:58] LABS: Hematocrit 27.9 % (41-53); Hemoglobin 9.1 g/dL (13.5-17.5); Mean Corpuscular HGB Conc 32.5 % (30-36); Mean Corpuscular Hemoglobin 32.9 PG (26-34); Mean Corpuscular Volume 101.2 fL (80-100); Platelet Count 112 X10^3/uL (150-400); Red Blood Cell Count 2.76 X10^6/uL (4.5-5.9); Red Cell Distribution Width 22.3 % (11.6-14.8); White Blood Cell Count 10.5 X10^3/uL (4.5-11.0)
[2017-11-21 09:01] LABS: Add Manual Diff / Slide Review YES
[2017-11-21 09:05] VITALS: BP 132/74; PULSE 104; RESP 18; TEMP 36.5; O2SAT 97
[2017-11-21 09:09] LABS: Alanine Aminotransferase 38 IU/L (21-72); Albumin 2.4 g/dL (3.5-5.0); Albumin Globulin Ratio 0.8 (1.0-2.8); Alkaline Phosphatase 143 U/L (38-126); Aspartate Aminotransferase 57 IU/L (17-59); Bilirubin Total 1.7 mg/dL (0.2-1.3); Blood Urea Nitrogen 18 mg/dL (9-20); Calcium 7.8 mg/dL (8.4-10.2); Carbon Dioxide 35 mmol/L (22-32); Chloride 100 mmol/L (98-107); Estimated Glomerular Filt Rate > 60.0 mL/min (>60); Globulin 3.2 g/dL (1.7-4.1); Glucose 125 mg/dL (80-110); HEMOLYSIS < 15 (0-50); Potassium 3.9 mmol/L (3.4-5.1); Sodium 141 mmol/L (137-145); Total Protein 5.6 g/dL (6.3-8.2)
[2017-11-21 09:22] LABS: Neutrophils Absolute Manual 7665 /uL (3000-5900); Total Cells Counted 100
[2017-11-21 09:23] LABS: Anisocytosis 3+; Hypochromasia 2+
--- NOTE | 2017-11-21 09:37 | P.PNONC_ITS ---
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 Previous treatment: 1. 4 doses of cisplatin and gemcitabine complicated by thrombocytopenia requiring dose reduction. He is currently on an every other week schedule. INTERVAL HISTORY: He returns today with his , Jennifer. Since his last visit here, he received his 4th dose of chemotherapy. He has continued to feel quite weak and tired. He did have a transfusion about a week ago. He felt psych is strength and energy level improved for several days but then declined again. He has not had any unusual bleeding or bruising. His appetite has been good. He had some not had any vomiting or nausea. He does have some ongoing dyspnea on exertion and overall just feels weak and tired. It is difficult for him to move around. Even taking a shower he finds exhausting. He has had some increased edema in his lower extremities. His pain has been under good better control. He did start using a THC lozenge which he finds helpful. He has been able to cut back on his tramadol. He did also start taking B12 supplement. He can't tell if that is really helping or not. He is scheduled for follow-up with restaging in [place] at the end of December. His medications include Zofran trazodone tramadol - Patient Self-Reported Symptoms SR Constitution: Night Sweats SR respiratory issues: Mucous SR Gastrointestinal issues: Constipation SR Genitourinary issues: Frequent urination SR Musculoskeletal issues: Muscle pain or cramps, Back or neck pain SR Hematologic issues: Bleeding/bruising - Additional ROS Additional ROS: He does have increasing fatigue and weakness as well as dyspnea on exertion. He has noted increased edema as well as abdominal fullness. Bowels are moving well. He denies any urinary complaints. Home Medications and Allergies Home Medications Medication Instructions Recorded Confirmed Type triamcinolone acetonide 1 grant TOPICAL QHS PRN 09/25/17 11/14/17 History ondansetron [Zuplenz] 8 mg PO Q8-12H PRN 30 Days #20 ea 10/31/17 11/14/17 Rx trazodone 100 mg PO ONCE HS PRN 30 Days #30 10/31/17 11/14/17 Rx tab tramadol 50 mg tablet 50 - 100 mg PO Q4-6H #180 tab 11/02/17 11/14/17 Rx tramadol 50 mg PO Q4-6H PRN 30 Days #240 tab 11/06/17 11/14/17 Rx polyethylene glycol 3350 [Miralax] 1.5 g/kg PO DAILY 11/14/17 11/14/17 History Cbd Cannibus 1 constantine PO 3-4XD PRN 11/21/17 11/21/17 History furosemide 40 mg PO DAILY 30 Days #30 tab 11/21/17 Rx Allergies Allergy/AdvReac Type Severity Reaction Status Date / Time No Known Drug Allergies Allergy Verified 09/27/17 12:54 Exam Vital signs: Last Vital Signs Temp 97.7 F 11/21/17 09:05 Pulse 104 H 11/21/17 09:05 Resp 18 11/21/17 09:05 BP 132/74 11/21/17 09:05 Pulse Ox 97 11/21/17 09:05 - Constitutional positive no acute distress, positive obese Comments: He is in a wheelchair today. He is somewhat pale. - Routine HEENT Exam Head: Present: normocephalic, atraumatic Eye: Present: EOMI, PERRL. Absent: conjunctival icterus, scleral injection ENT: Present: mucous membranes moist, oropharynx clear - Routine Neck Exam Present: supple. Absent: lymphadenopathy, thyromegaly Comments: There is no JVD - Routine Respiratory Exam Present: Clear to auscultation bilaterally, decreased breath sounds (He has decreased breath sounds at the right base about a [address] up.). Absent: rales, wheezes - Routine Cardiovascular Exam Present: RRR, S1, S2. Absent: murmur - Routine Abdominal Exam Present: soft, normoactive bowel sounds, distended. Absent: organomegaly - Routine Extremities Exam Present: edema Comments: He has increased edema 2+ bilaterally extending up to the knee. He also has some presacral edema. - Routine Skin Exam Present: intact. Absent: petechiae, rash - Routine Neurological Exam Present: alert, oriented X3 - Routine Psychiatric Exam Present: normal affect, normal thought process Results - Labs Laboratory Last Values WBC 10.5 X10^3/uL (4.5-11.0) 11/21/17 08:45 RBC 2.76 X10^6/uL (4.5-5.9) L 11/21/17 08:45 Hgb 9.1 g/dL (13.5-17.5) L 11/21/17 08:45 Hct 27.9 % (41-53) L 11/21/17 08:45 MCV 101.2 fL (80-100) H D 11/21/17 08:45 MCH 32.9 PG (26-34) 11/21/17 08:45 MCHC 32.5 % (30-36) 11/21/17 08:45 RDW 22.3 % (11.6-14.8) H 11/21/17 08:45 Plt Count 112 X10^3/uL (150-400) L 11/21/17 08:45 Neut % (Auto) Not Reportable 11/21/17 08:45 Lymph % (Auto) Not Reportable 11/21/17 08:45 [place] % (Auto) Not Reportable 11/21/17 08:45 Eos % (Auto) Not Reportable 11/21/17 08:45 Baso % (Auto) Not Reportable 11/21/17 08:45 Neut # (Auto) 8300 /uL (4772-9152) H 11/07/17 09:22 Total Counted 100 11/21/17 08:45 Seg Neutrophils % 73.0 % (38-70) H 11/21/17 08:45 Band Neutrophils % 3.0 % (3-7) 11/14/17 09:17 Lymphocytes % (Manual) 17.0 % (25-45) L 11/21/17 08:45 Atypical Lymphs % 14.0 % (-0) H 11/14/17 09:17 Monocytes % (Manual) 4.0 % (2-11) 11/21/17 08:45 Eosinophils % (Manual) 5.0 % (2-4) H 11/21/17 08:45 Basophils % (Manual) 1.0 % (0-1) 11/21/17 08:45 Metamyelocytes % 1.0 % (-0) H 11/14/17 09:17 Myelocytes % 3.0 % (-0) H 11/14/17 09:17 Neutrophils # (Manual) 7665 /uL (6550-0730) H 11/21/17 08:45 Nucleated RBCs 5 #/Diff (-0) H 11/14/17 09:17 Platelet Estimate Decreased on smear 11/14/17 09:17 RBC Morphology Not Reportable 11/21/17 08:45 Polychromasia 3+ H 11/14/17 09:17 Hypochromasia 2+ H 11/21/17 08:45 Poikilocytosis 1+ H 11/14/17 09:17 Anisocytosis 3+ H 11/21/17 08:45 Macrocytosis 1+ H 11/14/17 09:17 [place] 1+ H 11/14/17 09:17 Sodium 141 mmol/L (137-145) 11/21/17 08:44 Potassium 3.9 mmol/L (3.4-5.1) 11/21/17 08:44 Chloride 100 mmol/L (98-107) 11/21/17 08:44 Carbon Dioxide 35 mmol/L (22-32) H 11/21/17 08:44 BUN 18 mg/dL (9-20) 11/21/17 08:44 Creatinine 0.50 mg/dL (0.66-1.25) L 11/21/17 08:44 Estimated GFR > 60.0 mL/min (>60) 11/21/17 08:44 BUN/Creatinine Ratio 36.0 (6-22) H 11/21/17 08:44 Glucose 125 mg/dL (80-110) H 11/21/17 08:44 Calcium 7.8 mg/dL (8.4-10.2) L 11/21/17 08:44 Magnesium 1.9 mg/dL (1.6-2.3) 11/14/17 09:17 Total Bilirubin 1.7 mg/dL (0.2-1.3) H 11/21/17 08:44 AST 57 IU/L (17-59) 11/21/17 08:44 ALT 38 IU/L (21-72) 11/21/17 08:44 Alkaline Phosphatase 143 U/L (38-126) H 11/21/17 08:44 Lactate Dehydrogenase 2318 U/L (313-618) H 10/02/17 09:16 Total Protein 5.6 g/dL (6.3-8.2) L 11/21/17 08:44 Albumin 2.4 g/dL (3.5-5.0) L 11/21/17 08:44 Globulin 3.2 g/dL (1.7-4.1) 11/21/17 08:44 Albumin/Globulin Ratio 0.8 (1.0-2.8) L 11/21/17 08:44 Alpha Fetoprotein 2.3 10/03/17 09:12 Carcinoembryonic Ag 1.0 ng/mL (0.1-3.0) 10/03/17 09:12 CA 19-9 Antigen 10/03/17 09:12 Blood Type O Positive 11/14/17 09:58 Antibody Screen Negative 11/14/17 09:58 Crossmatch See Detail 11/14/17 09:58 - Imaging Additional studies: Procedures Closed [endoscopic] biopsy of large intestine (08/26/13) Assessment and Plan (1) Metastatic cancer Problem details: A 67-year-old man with widely metastatic carcinoma of unknown primary although is most consistent with a cholangiocarcinoma. He is having significant myelosuppression from his chemotherapy. He seems to be tolerating the every other weekly dosing better and has been able to stay on schedule. His counts have recovered as expected after his red cell transfusion. His platelet count is better. He will go ahead with his next chemotherapy dose today. He should be due for restaging at the end of December, but if he has continued weakness and fatigue, it may be reasonable to check sooner. He does have some increasing dyspnea on exertion. He did have some improvement after his transfusion. Will try and had a diuretic to his regimen. I will also plan on checking an echocardiogram. He has had chronic pain which has been well controlled on tramadol. The THC lozenge is in seem to help with his pain. He has been able to cut back on his tramadol. He will return to clinic in about 2 weeks for follow-up but sooner should the need arise. Current visit: No Status: Acute
[2017-11-21] MEDS: SODIUM CHLORIDE 0.9% 1,000 ML 500 ML IV (09:41)
[2017-11-21] MEDS: DEXAMETHASONE 12 MG in SODIUM CHLORIDE 0.9% 50 ML 212 ML IV (10:01)
[2017-11-21] MEDS: FOSAPREPITANT 150 MG in SODIUM CHLORIDE 0.9% 150 ML 300 ML IV (10:22)
[2017-11-21] MEDS: ONDANSETRON 16 MG in SODIUM CHLORIDE 0.9% 50 ML 232 ML IV (10:56)
[2017-11-21] MEDS: LORazepam 0.5 MG TABLET PO (11:08)
[2017-11-21] MEDS: GEMCITABINE IV (11:26)
[2017-11-21] MEDS: SODIUM CHLORIDE 0.9% IV (11:26)
[2017-11-21] MEDS: [UNRECOGNIZED DRUG - OTHER] IV (12:16)
[2017-11-21] MEDS: MANNITOL IV (12:16)
[2017-11-21] MEDS: CISPLATIN IV (12:16)
[2017-11-21] MEDS: POTASSIUM CHLORIDE IV (12:16)
[2017-11-26 14:27] LABS: Hemoglobin 9.2 g/dL (13.5-17.5); White Blood Cell Count 3.9 X10^3/uL (4.5-11.0)
[2017-11-26 14:30] LABS: Hematocrit 27.2 % (41-53); Mean Corpuscular HGB Conc 33.7 % (30-36); Mean Corpuscular Hemoglobin 32.7 PG (26-34); Mean Corpuscular Volume 97.1 fL (80-100); Red Cell Distribution Width 20.7 % (11.6-14.8)
[2017-11-26 14:36] LABS: Add Manual Diff / Slide Review YES; Platelet Count 26 X10^3/uL (150-400)
[2017-11-26 14:39] LABS: Alanine Aminotransferase 44 IU/L (21-72); Albumin 2.3 g/dL (3.5-5.0); Albumin Globulin Ratio 0.7 (1.0-2.8); Alkaline Phosphatase 135 U/L (38-126); Aspartate Aminotransferase 31 IU/L (17-59); BUN Creatinine Ratio 44.3 (6-22); Bilirubin Total 2.7 mg/dL (0.2-1.3); Blood Urea Nitrogen 31 mg/dL (9-20); Calcium 7.5 mg/dL (8.4-10.2); Chloride 92 mmol/L (98-107); Estimated Glomerular Filt Rate > 60.0 mL/min (>60); Globulin 3.2 g/dL (1.7-4.1); Glucose 121 mg/dL (80-110); HEMOLYSIS < 15 (0-50); Potassium 3.4 mmol/L (3.4-5.1); Sodium 136 mmol/L (137-145); Total Protein 5.5 g/dL (6.3-8.2)
[2017-11-26 14:45] LABS: Carbon Dioxide 38 mmol/L (22-32)
[2017-11-26 14:58] LABS: Neutrophils Absolute Manual 2067 /uL (3000-5900); Total Cells Counted 100
[2017-11-26 14:59] LABS: Anisocytosis 1+; Macrocytosis 1+
[2017-11-26 15:14] VITALS: BP 127/63; PULSE 102; RESP 20; TEMP 37.5; O2SAT 93
--- NOTE | 2017-11-26 15:28 | ONC.PN ---
PN -Subjective Interval history: INTERIM EVENTS Patient has a history of adenocarcinoma of unknown primary. Patient is currently getting chemotherapy with gemcitabine and cisplatin. The most recent chemotherapy was on November 21, 2017. The patient was evaluated at the emergency room yesterday due to gastrointestinal bleeding. Patient reported that the night before yesterday, patient had a significant bright red blood in the stool. Patient therefore went to the emergency room. He was found to have an hemoglobin level of 7.5 hematocrit 22.7. Patient's platelet count was 95. Patient also was having problems breathing. X-ray showed right-sided small pleural effusion. Multiple pulmonary nodules were noted. Patient was given 2 units of blood transfusion. Patient presents here today for post ER follow-up visit. Clinically patient reports that he is feeling a lot better. However patient is still weak and pale. Patient's most recent bowel movement was in the morning at about 10 o'clock. According to patient, he denies any bright red blood. Patient was in wheelchair and accompanied by his . - Patient Self-Reported Symptoms SR Constitution: Night Sweats SR ears, nose, mouth, throat issues: Mouth sores SR respiratory issues: Cough, Mucous SR Cardiovascular issues: Shortness of breath with activity or lying flat, Extreme swelling, Dizzy/lightheaded SR Gastrointestinal issues: Constipation SR Genitourinary issues: Frequent urination SR Musculoskeletal issues: Muscle pain or cramps, Back or neck pain SR Hematologic issues: Bleeding/bruising Home Medications and Allergies Home Medications Medication Instructions Recorded Confirmed Type triamcinolone acetonide 1 grant TOPICAL QHS PRN 09/25/17 11/14/17 History ondansetron [Zuplenz] 8 mg PO Q8-12H PRN 30 Days #20 ea 10/31/17 11/14/17 Rx trazodone 100 mg PO ONCE HS PRN 30 Days #30 10/31/17 11/14/17 Rx tab tramadol 50 mg tablet 50 - 100 mg PO Q4-6H #180 tab 11/02/17 11/14/17 Rx tramadol 50 mg PO Q4-6H PRN 30 Days #240 tab 11/06/17 11/14/17 Rx polyethylene glycol 3350 [Miralax] 1.5 g/kg PO DAILY 11/14/17 11/14/17 History Cbd Cannibus 1 constantine PO 3-4XD PRN 11/21/17 11/21/17 History furosemide 40 mg PO DAILY 30 Days #30 tab 11/21/17 Rx Allergies Allergy/AdvReac Type Severity Reaction Status Date / Time No Known Drug Allergies Allergy Verified 09/27/17 12:54 Exam Vital signs: Last Vital Signs Temp 99.5 F 11/26/17 15:14 Pulse 102 H 11/26/17 15:14 Resp 20 11/26/17 15:14 BP 127/63 11/26/17 15:14 Pulse Ox 93 11/26/17 15:14 - Constitutional positive no acute distress, positive obese, positive chronically ill appearing Comments: Very pale on my physical examination - Routine HEENT Exam Head: Present: normocephalic, atraumatic Eye: Present: EOMI, PERRL, normal accommodation. Absent: conjunctival icterus ENT: Present: mucous membranes moist - Routine Respiratory Exam Present: decreased breath sounds, crackles (Posterior right lung base upon inspiration.) - Routine Cardiovascular Exam Present: RRR, S1, S2 (The or resulted of a the when on the have can within the right) - Routine Abdominal Exam Present: soft (The at or on the the) Bowel sounds abdominal exam standard: hyperactive Palpation/Percussion: Present: hepatomegaly - Routine Neurological Exam Present: alert, oriented X3, CN II-XII intact. Absent: sensory deficit, motor deficit Results - Labs Laboratory Last Values WBC 3.9 X10^3/uL (4.5-11.0) L 11/26/17 14:08 RBC 2.80 X10^6/uL (4.5-5.9) L 11/26/17 14:08 Hgb 9.2 g/dL (13.5-17.5) L 11/26/17 14:08 Hct 27.2 % (41-53) L 11/26/17 14:08 MCV 97.1 fL (80-100) D 11/26/17 14:08 MCH 32.7 PG (26-34) 11/26/17 14:08 MCHC 33.7 % (30-36) 11/26/17 14:08 RDW 20.7 % (11.6-14.8) H 11/26/17 14:08 Plt Count 26 X10^3/uL (150-400) L* 11/26/17 14:08 Neut % (Auto) Not Reportable 11/26/17 14:08 Lymph % (Auto) Not Reportable 11/26/17 14:08 [place] % (Auto) Not Reportable 11/26/17 14:08 Eos % (Auto) Not Reportable 11/26/17 14:08 Baso % (Auto) Not Reportable 11/26/17 14:08 Neut # (Auto) 8300 /uL (1958-1175) H 11/07/17 09:22 Total Counted 100 11/26/17 14:08 Seg Neutrophils % 47.0 % (38-70) 11/26/17 14:08 Band Neutrophils % 6.0 % (3-7) 11/26/17 14:08 Lymphocytes % (Manual) 31.0 % (25-45) 11/26/17 14:08 Atypical Lymphs % 5.0 % (-0) H 11/26/17 14:08 Monocytes % (Manual) 5.0 % (2-11) 11/26/17 14:08 Eosinophils % (Manual) 4.0 % (2-4) 11/26/17 14:08 Basophils % (Manual) 1.0 % (0-1) 11/21/17 08:45 Metamyelocytes % 1.0 % (-0) H 11/26/17 14:08 Myelocytes % 1.0 % (-0) H 11/26/17 14:08 Neutrophils # (Manual) 2067 /uL (6712-0811) L 11/26/17 14:08 Nucleated RBCs 5 #/Diff (-0) H 11/14/17 09:17 Platelet Estimate Decreased on smear 11/14/17 09:17 RBC Morphology Not Reportable 11/26/17 14:08 Polychromasia 3+ H 11/14/17 09:17 Hypochromasia 2+ H 11/21/17 08:45 Poikilocytosis 1+ H 11/14/17 09:17 Anisocytosis 1+ H 11/26/17 14:08 Macrocytosis 1+ H 11/26/17 14:08 Rouleaux 1+ H 11/14/17 09:17 Sodium 136 mmol/L (137-145) L 11/26/17 14:08 Potassium 3.4 mmol/L (3.4-5.1) 11/26/17 14:08 Chloride 92 mmol/L (98-107) L 11/26/17 14:08 Carbon Dioxide 38 mmol/L (22-32) H 11/26/17 14:08 BUN 31 mg/dL (9-20) H 11/26/17 14:08 Creatinine 0.70 mg/dL (0.66-1.25) 11/26/17 14:08 Estimated GFR > 60.0 mL/min (>60) 11/26/17 14:08 BUN/Creatinine Ratio 44.3 (6-22) H 11/26/17 14:08 Glucose 121 mg/dL (80-110) H 11/26/17 14:08 Calcium 7.5 mg/dL (8.4-10.2) L 11/26/17 14:08 Magnesium 1.9 mg/dL (1.6-2.3) 11/14/17 09:17 Total Bilirubin 2.7 mg/dL (0.2-1.3) H 11/26/17 14:08 AST 31 IU/L (17-59) 11/26/17 14:08 ALT 44 IU/L (21-72) 11/26/17 14:08 Alkaline Phosphatase 135 U/L (38-126) H 11/26/17 14:08 Lactate Dehydrogenase 2318 U/L (313-618) H 10/02/17 09:16 Total Protein 5.5 g/dL (6.3-8.2) L 11/26/17 14:08 Albumin 2.3 g/dL (3.5-5.0) L 11/26/17 14:08 Globulin 3.2 g/dL (1.7-4.1) 11/26/17 14:08 Albumin/Globulin Ratio 0.7 (1.0-2.8) L 11/26/17 14:08 Alpha Fetoprotein 2.3 10/03/17 09:12 Carcinoembryonic Ag 1.0 ng/mL (0.1-3.0) 10/03/17 09:12 CA 19-9 Antigen 10/03/17 09:12 Blood Type O Positive 11/14/17 09:58 Antibody Screen Negative 11/14/17 09:58 Crossmatch See Detail 11/14/17 09:58 - Imaging Additional studies: Procedures Closed [endoscopic] biopsy of large intestine (08/26/13) Assessment and Plan (1) Metastatic cancer Metastatic adenocarcinoma of [place] primary. Currently been treated with gemcitabine and cisplatin. I will ask the patient continue follow-up with Dr. Vance tomorrow. (2) GI bleeding Clinically, patient has a relatively stable vitals. However the heart rate is slightly higher. Patient's hematocrit and hemoglobin level have improved compared to levels from last night. However it felt short after 2 units of blood transfusion. I would expect higher level than the current hemoglobin and hematocrit level. In addition patient's platelet counts have dropped dramatically from 95 yesterday to 26 today. I talked with the patient that first of all we do not know if the patient still is experiencing active bleeding. Second the platelet counts are decreasing rapidly. We do not know what would be the next platelet count in several hours. It may very well well below 10,000. Therefore I think he is at increased risk of continued bleeding. I will proceed with platelet transfusion 1 6-pack today. I will have the patient come back tomorrow morning to repeat the CBC and follow-up with Dr. Lopez
[2017-11-27 10:36] LABS: Hematocrit 27.5 % (41-53); Hemoglobin 9.3 g/dL (13.5-17.5); Mean Corpuscular HGB Conc 33.8 % (30-36); Mean Corpuscular Hemoglobin 32.6 PG (26-34); Mean Corpuscular Volume 96.4 fL (80-100); Red Blood Cell Count 2.86 X10^6/uL (4.5-5.9); Red Cell Distribution Width 20.3 % (11.6-14.8); White Blood Cell Count 5.9 X10^3/uL (4.5-11.0)
[2017-11-27 10:37] LABS: Add Manual Diff / Slide Review YES; Platelet Count 8 X10^3/uL (150-400)
[2017-11-27 11:05] LABS: Neutrophils Absolute Manual 3717 /uL (3000-5900); Nucleated Red Blood Cells 1 #/Diff; Total Cells Counted 100
[2017-11-27 11:06] LABS: Toxic Granulation Present
[2017-11-27 11:07] LABS: Anisocytosis 2+; Poikilocytosis 1+
[2017-11-27 11:09] LABS: WBC Morphology Comment PROMONOCYTES PRESENT
[2017-11-27 11:12] LABS: Platelet Estimate Decreased on smear
[2017-11-27 11:30] VITALS: BP 110/66; PULSE 94; RESP 16; TEMP 37
[2017-11-27] MEDS: ONDANSETRON HCL 8 MG TABLET PO (11:33)
[2017-11-27] MEDS: SODIUM CHLORIDE 0.9% 250 ML 21 ML IV (11:33)
[2017-11-27 11:50] VITALS: BP 119/57; PULSE 93; RESP 18; TEMP 36.9
--- NOTE | 2017-11-27 13:06 | P.PNONC_ITS ---
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 Previous treatment: 1. 5 doses of cisplatin and gemcitabine complicated by thrombocytopenia requiring dose reduction. He is currently on an every other week schedule. INTERIM EVENTS Since his last visit here, he has received his next dose of chemotherapy. Over the weekend, he developed some bright red blood per rectum. He was seen in the emergency room and was given 2 unit of red cell transfusion. He has not had any further bleeding that he has been aware of. However, on recheck yesterday' s platelet count had dropped from 95,000 down into the 20s. On recheck today it was 9. He is getting a platelet transfusion today. Overall, he feels weak and tired. He does have some dyspnea on exertion and is ability to move around has been limited. He does not have any nausea or vomiting. His appetite has been good. He is not having any pain. He did start taking some Lasix to see if that would help with his edema but it has not and in fact his swelling has worsened. He denies any fevers or chills. He is scheduled for an echocardiogram on . - Patient Self-Reported Symptoms SR Constitution: Night Sweats SR ears, nose, mouth, throat issues: Mouth sores SR respiratory issues: Cough, Mucous SR Cardiovascular issues: Shortness of breath with activity or lying flat, Extreme swelling, Dizzy/lightheaded SR Gastrointestinal issues: Constipation SR Genitourinary issues: Frequent urination SR Musculoskeletal issues: Muscle pain or cramps, Back or neck pain SR Hematologic issues: Bleeding/bruising Home Medications and Allergies Home Medications Medication Instructions Recorded Confirmed Type triamcinolone acetonide 1 grant TOPICAL QHS PRN 09/25/17 11/14/17 History ondansetron [Zuplenz] 8 mg PO Q8-12H PRN 30 Days #20 ea 10/31/17 11/14/17 Rx trazodone 100 mg PO ONCE HS PRN 30 Days #30 10/31/17 11/14/17 Rx tab tramadol 50 mg tablet 50 - 100 mg PO Q4-6H #180 tab 11/02/17 11/14/17 Rx tramadol 50 mg PO Q4-6H PRN 30 Days #240 tab 11/06/17 11/14/17 Rx polyethylene glycol 3350 [Miralax] 1.5 g/kg PO DAILY 11/14/17 11/14/17 History Cbd Cannibus 1 constantine PO 3-4XD PRN 11/21/17 11/21/17 History furosemide 40 mg PO DAILY 30 Days #30 tab 11/21/17 Rx Allergies Allergy/AdvReac Type Severity Reaction Status Date / Time No Known Drug Allergies Allergy Verified 09/27/17 12:54 Exam Vital signs: Last Vital Signs Temp 98.5 F 11/27/17 11:50 Pulse 93 H 11/27/17 11:50 Resp 18 11/27/17 11:50 BP 119/57 L 11/27/17 11:50 Pulse Ox 93 11/26/17 15:14 - Constitutional positive no acute distress, positive obese, positive chronically ill appearing - Routine HEENT Exam Head: Present: normocephalic, atraumatic Eye: Present: EOMI, PERRL. Absent: conjunctival icterus, scleral injection ENT: Present: mucous membranes moist, oropharynx clear - Routine Neck Exam Present: supple. Absent: lymphadenopathy, thyromegaly - Routine Respiratory Exam Present: Clear to auscultation bilaterally, diminished air movement Comments: He has diminished air sounds at the right base. - Routine Cardiovascular Exam Present: RRR, S1, S2. Absent: murmur - Routine Abdominal Exam Present: soft, normoactive bowel sounds, distended. Absent: mass - Routine Extremities Exam Present: edema. Absent: cyanosis, clubbing Comments: He has 3+ bilateral lower extremity edema as well as presacral edema. - Routine Back/Spine Exam Back/Spine: Absent: paraspinal tenderness, vertebral tenderness - Routine Skin Exam Present: intact. Absent: cyanosis, petechiae, rash - Routine Neurological Exam Present: alert, oriented X3 - Routine Psychiatric Exam Present: normal affect, normal thought process Results - Labs Laboratory Last Values WBC 5.9 X10^3/uL (4.5-11.0) D 11/27/17 10:25 RBC 2.86 X10^6/uL (4.5-5.9) L 11/27/17 10:25 Hgb 9.3 g/dL (13.5-17.5) L 11/27/17 10:25 Hct 27.5 % (41-53) L 11/27/17 10:25 MCV 96.4 fL (80-100) 11/27/17 10:25 MCH 32.6 PG (26-34) 11/27/17 10:25 MCHC 33.8 % (30-36) 11/27/17 10:25 RDW 20.3 % (11.6-14.8) H 11/27/17 10:25 Plt Count 8 X10^3/uL (150-400) L* 11/27/17 10:25 Neut % (Auto) Not Reportable 11/27/17 10:25 Lymph % (Auto) Not Reportable 11/27/17 10:25 [place] % (Auto) Not Reportable 11/27/17 10:25 Eos % (Auto) Not Reportable 11/27/17 10:25 Baso % (Auto) Not Reportable 11/27/17 10:25 Neut # (Auto) 8300 /uL (3774-8982) H 11/07/17 09:22 Total Counted 100 11/27/17 10:25 Seg Neutrophils % 55.0 % (38-70) 11/27/17 10:25 Band Neutrophils % 8.0 % (3-7) H 11/27/17 10:25 Lymphocytes % (Manual) 15.0 % (25-45) L 11/27/17 10:25 Atypical Lymphs % 10.0 % (-0) H 11/27/17 10:25 Monocytes % (Manual) 7.0 % (2-11) 11/27/17 10:25 Eosinophils % (Manual) 3.0 % (2-4) 11/27/17 10:25 Basophils % (Manual) 1.0 % (0-1) 11/21/17 08:45 Metamyelocytes % 2.0 % (-0) H 11/27/17 10:25 Myelocytes % 1.0 % (-0) H 11/26/17 14:08 Neutrophils # (Manual) 3717 /uL (3494-3841) 11/27/17 10:25 Nucleated RBCs 1 #/Diff (-0) H 11/27/17 10:25 Toxic Granulation Present H 11/27/17 10:25 WBC Morphology Comment Promonocytes present 11/27/17 10:25 Platelet Estimate Decreased on smear 11/27/17 10:25 RBC Morphology Not Reportable 11/27/17 10:25 Polychromasia 3+ H 11/14/17 09:17 Hypochromasia 2+ H 11/21/17 08:45 Poikilocytosis 1+ H 11/27/17 10:25 Anisocytosis 2+ H 11/27/17 10:25 Macrocytosis 1+ H 11/26/17 14:08 Rouleaux 1+ H 11/14/17 09:17 Sodium 136 mmol/L (137-145) L 11/26/17 14:08 Potassium 3.4 mmol/L (3.4-5.1) 11/26/17 14:08 Chloride 92 mmol/L (98-107) L 11/26/17 14:08 Carbon Dioxide 38 mmol/L (22-32) H 11/26/17 14:08 BUN 31 mg/dL (9-20) H 11/26/17 14:08 Creatinine 0.70 mg/dL (0.66-1.25) 11/26/17 14:08 Estimated GFR > 60.0 mL/min (>60) 11/26/17 14:08 BUN/Creatinine Ratio 44.3 (6-22) H 11/26/17 14:08 Glucose 121 mg/dL (80-110) H 11/26/17 14:08 Calcium 7.5 mg/dL (8.4-10.2) L 11/26/17 14:08 Magnesium 1.9 mg/dL (1.6-2.3) 11/14/17 09:17 Total Bilirubin 2.7 mg/dL (0.2-1.3) H 11/26/17 14:08 AST 31 IU/L (17-59) 11/26/17 14:08 ALT 44 IU/L (21-72) 11/26/17 14:08 Alkaline Phosphatase 135 U/L (38-126) H 11/26/17 14:08 Lactate Dehydrogenase 2318 U/L (313-618) H 10/02/17 09:16 Total Protein 5.5 g/dL (6.3-8.2) L 11/26/17 14:08 Albumin 2.3 g/dL (3.5-5.0) L 11/26/17 14:08 Globulin 3.2 g/dL (1.7-4.1) 11/26/17 14:08 Albumin/Globulin Ratio 0.7 (1.0-2.8) L 11/26/17 14:08 Alpha Fetoprotein 2.3 10/03/17 09:12 Carcinoembryonic Ag 1.0 ng/mL (0.1-3.0) 10/03/17 09:12 CA 19-9 Antigen 10/03/17 09:12 Blood Type O Positive 11/26/17 14:20 Antibody Screen Negative 11/14/17 09:58 Crossmatch See Detail 11/14/17 09:58 - Imaging Additional studies: Procedures Closed [endoscopic] biopsy of large intestine (08/26/13) Assessment and Plan (1) Metastatic cancer Metastatic adenocarcinoma of [place] primary. Currently been treated with gemcitabine and cisplatin. I will ask the patient continue follow-up with Dr. Vance tomorrow. (2) GI bleeding Clinically, patient has a relatively stable vitals. However the heart rate is slightly higher. Patient's hematocrit and hemoglobin level have improved compared to levels from last night. However it felt short after 2 units of blood transfusion. I would expect higher level than the current hemoglobin and hematocrit level. In addition patient's platelet counts have dropped dramatically from 95 yesterday to 26 today. I talked with the patient that first of all we do not know if the patient still is experiencing active bleeding. Second the platelet counts are decreasing rapidly. We do not know what would be the next platelet count in several hours. It may very well well below 10,000. Therefore I think he is at increased risk of continued bleeding. I will proceed with platelet transfusion 1 6-pack today. I will have the patient come back tomorrow morning to repeat the CBC and follow-up with Dr. Lopez
[2017-11-27 13:08] VITALS: BP 120/60; PULSE 90; RESP 18; TEMP 36.8
[2017-12-05 08:46] LABS: Add Manual Diff / Slide Review NO; Basophils Percent Auto 0.2 % (0-2); Eosinophils Percent Auto 1.1 % (2-4); Hematocrit 27.3 % (41-53); Lymphocytes Percent Auto 12.5 % (25-40); Mean Corpuscular HGB Conc 33.1 % (30-36); Mean Corpuscular Hemoglobin 34.1 PG (26-34); Monocytes Percent Auto 13.4 % (3-14); Neutrophils Absolute Auto 9800 /uL (3000-5900); Neutrophils Percent Auto 72.8 % (50-75); Platelet Count 86 X10^3/uL (150-400); Red Blood Cell Count 2.65 X10^6/uL (4.5-5.9); Red Cell Distribution Width 25.2 % (11.6-14.8); White Blood Cell Count 13.5 X10^3/uL (4.5-11.0)
[2017-12-05 08:56] LABS: Alanine Aminotransferase 35 IU/L (21-72); Albumin 2.3 g/dL (3.5-5.0); Albumin Globulin Ratio 0.7 (1.0-2.8); Alkaline Phosphatase 160 U/L (38-126); Aspartate Aminotransferase 53 IU/L (17-59); BUN Creatinine Ratio 41.4 (6-22); Bilirubin Total 3.5 mg/dL (0.2-1.3); Blood Urea Nitrogen 29 mg/dL (9-20); Calcium 7.2 mg/dL (8.4-10.2); Chloride 88 mmol/L (98-107); Estimated Glomerular Filt Rate > 60.0 mL/min (>60); Globulin 3.2 g/dL (1.7-4.1); Glucose 99 mg/dL (80-110); HEMOLYSIS < 15 (0-50); Potassium 3.3 mmol/L (3.4-5.1); Sodium 132 mmol/L (137-145); Total Protein 5.5 g/dL (6.3-8.2)
[2017-12-05 09:05] LABS: Carbon Dioxide 39 mmol/L (22-32)
[2017-12-05 09:09] LABS: Anisocytosis 1+; Dimorphic RBC 2
--- NOTE | 2017-12-05 09:23 | ONC.NAV ---
Description: Care Coordination/Hospice Referral Activity: This CAMERA REPAIRER met with pt and prior to their provider visit today. Pt is expressing having increasing difficulty with mobility and overall functioning, increased lower extremity edema, and ascites. He has not been able to bathe for a week, and is terrified of falling. CAMERA REPAIRER discussed different support options, such as Home Health, hiring a caregiver (pt weighs over 300lbs, and is more than a two-person assist), getting a commode to raise high over the toilet. Pt's was not open to having Home Health, and is focused on a compression device that she has purchased to try to help with pt's edema. After their visit with Dr. Vance, and given his poor prognosis, patient has opted to elect hospice, and discontinue aggressive treatment at this time. His had a difficult time with this decision, and will need ongoing support in helping her adjust to this transition to end of life care. CAMERA REPAIRER will f/u with compiling and faxing pt's records to hospice.
--- NOTE | 2017-12-05 09:31 | P.PNONC_ITS ---
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 Previous treatment: 1. 6 doses of cisplatin and gemcitabine complicated by thrombocytopenia requiring dose reduction. He is currently on an every other week schedule. INTERIM EVENTS Since his last visit here, he has received his next dose of chemotherapy. He tolerated about the same. He has had some nausea and vomiting. He notes ongoing fatigue and weakness that has been getting progressively worse. Despite diuretics, his edema and weight have been increasing. He is noting increasing abdominal girth and distention. His performance status has been declining. It has been difficult for him to get up out of bed her up off the commode. He has been unsteady on his feet. He expresses frustration about his lack of improvement and decline in his performance status. - Patient Self-Reported Symptoms SR Constitution: Night Sweats SR ears, nose, mouth, throat issues: Mouth sores SR respiratory issues: Cough, Mucous SR Cardiovascular issues: Shortness of breath with activity or lying flat, Extreme swelling, Dizzy/lightheaded SR Gastrointestinal issues: Constipation SR Genitourinary issues: Frequent urination SR Musculoskeletal issues: Muscle pain or cramps, Back or neck pain SR Hematologic issues: Bleeding/bruising Home Medications and Allergies Home Medications Medication Instructions Recorded Confirmed Type triamcinolone acetonide 1 grant TOPICAL QHS PRN 09/25/17 11/14/17 History ondansetron [Zuplenz] 8 mg PO Q8-12H PRN 30 Days #20 ea 10/31/17 11/14/17 Rx tramadol 50 mg tablet 50 - 100 mg PO Q4-6H #180 tab 11/02/17 11/14/17 Rx polyethylene glycol 3350 [Miralax] 1.5 g/kg PO DAILY 11/14/17 11/14/17 History Cbd Cannibus 1 constantine PO 3-4XD PRN 11/21/17 11/21/17 History furosemide 40 mg PO DAILY 30 Days #30 tab 11/21/17 Rx tramadol 50 mg PO Q4-6H PRN 30 Days #240 tab 12/03/17 Rx Allergies Allergy/AdvReac Type Severity Reaction Status Date / Time No Known Drug Allergies Allergy Verified 09/27/17 12:54 Exam Vital signs: Last Vital Signs Temp 98.2 F 11/27/17 13:08 Pulse 90 11/27/17 13:08 Resp 18 11/27/17 13:08 BP 120/60 11/27/17 13:08 Pulse Ox 93 11/26/17 15:14 - Constitutional positive obese, positive chronically ill appearing Comments: He is in a wheelchair. He has marked edema of his lower extremities and abdominal distension. He is not further examined. Results - Labs Laboratory Last Values WBC 13.5 X10^3/uL (4.5-11.0) H 12/05/17 08:30 RBC 2.65 X10^6/uL (4.5-5.9) L 12/05/17 08:30 Hgb 9.0 g/dL (13.5-17.5) L 12/05/17 08:30 Hct 27.3 % (41-53) L 12/05/17 08:30 MCV 103.0 fL (80-100) H D 12/05/17 08:30 MCH 34.1 PG (26-34) H 12/05/17 08:30 MCHC 33.1 % (30-36) 12/05/17 08:30 RDW 25.2 % (11.6-14.8) H 12/05/17 08:30 Plt Count 86 X10^3/uL (150-400) L 12/05/17 08:30 Neut % (Auto) 72.8 % (50-75) 12/05/17 08:30 Lymph % (Auto) 12.5 % (25-40) L 12/05/17 08:30 [place] % (Auto) 13.4 % (3-14) 12/05/17 08:30 Eos % (Auto) 1.1 % (2-4) L 12/05/17 08:30 Baso % (Auto) 0.2 % (0-2) 12/05/17 08:30 Neut # (Auto) 9800 /uL (1186-4475) H 12/05/17 08:30 Total Counted 100 11/27/17 10:25 Seg Neutrophils % 55.0 % (38-70) 11/27/17 10:25 Band Neutrophils % 8.0 % (3-7) H 11/27/17 10:25 Lymphocytes % (Manual) 15.0 % (25-45) L 11/27/17 10:25 Atypical Lymphs % 10.0 % (-0) H 11/27/17 10:25 Monocytes % (Manual) 7.0 % (2-11) 11/27/17 10:25 Eosinophils % (Manual) 3.0 % (2-4) 11/27/17 10:25 Basophils % (Manual) 1.0 % (0-1) 11/21/17 08:45 Metamyelocytes % 2.0 % (-0) H 11/27/17 10:25 Myelocytes % 1.0 % (-0) H 11/26/17 14:08 Neutrophils # (Manual) 3717 /uL (3116-3012) 11/27/17 10:25 Nucleated RBCs 1 #/Diff (-0) H 11/27/17 10:25 Toxic Granulation Present H 11/27/17 10:25 WBC Morphology Comment Promonocytes present 11/27/17 10:25 Platelet Estimate Decreased on smear 11/27/17 10:25 RBC Morphology Not Reportable 12/05/17 08:30 Dimorphic RBCs 2 12/05/17 08:30 Polychromasia 3+ H 11/14/17 09:17 Hypochromasia 2+ H 11/21/17 08:45 Poikilocytosis 1+ H 11/27/17 10:25 Anisocytosis 1+ H 12/05/17 08:30 Macrocytosis 1+ H 11/26/17 14:08 Rouleaux 1+ H 11/14/17 09:17 Sodium 132 mmol/L (137-145) L 12/05/17 08:30 Potassium 3.3 mmol/L (3.4-5.1) L 12/05/17 08:30 Chloride 88 mmol/L (98-107) L 12/05/17 08:30 Carbon Dioxide 39 mmol/L (22-32) H 12/05/17 08:30 BUN 29 mg/dL (9-20) H 12/05/17 08:30 Creatinine 0.70 mg/dL (0.66-1.25) 12/05/17 08:30 Estimated GFR > 60.0 mL/min (>60) 12/05/17 08:30 BUN/Creatinine Ratio 41.4 (6-22) H 12/05/17 08:30 Glucose 99 mg/dL (80-110) 12/05/17 08:30 Calcium 7.2 mg/dL (8.4-10.2) L 12/05/17 08:30 Magnesium 1.9 mg/dL (1.6-2.3) 11/14/17 09:17 Total Bilirubin 3.5 mg/dL (0.2-1.3) H 12/05/17 08:30 AST 53 IU/L (17-59) 12/05/17 08:30 ALT 35 IU/L (21-72) 12/05/17 08:30 Alkaline Phosphatase 160 U/L (38-126) H 12/05/17 08:30 Lactate Dehydrogenase 2318 U/L (313-618) H 10/02/17 09:16 Total Protein 5.5 g/dL (6.3-8.2) L 12/05/17 08:30 Albumin 2.3 g/dL (3.5-5.0) L 12/05/17 08:30 Globulin 3.2 g/dL (1.7-4.1) 12/05/17 08:30 Albumin/Globulin Ratio 0.7 (1.0-2.8) L 12/05/17 08:30 Alpha Fetoprotein 2.3 10/03/17 09:12 Carcinoembryonic Ag 1.0 ng/mL (0.1-3.0) 10/03/17 09:12 CA 19-9 Antigen 10/03/17 09:12 Blood Type O Positive 11/26/17 14:20 Antibody Screen Negative 11/14/17 09:58 Crossmatch See Detail 11/14/17 09:58 - Imaging CT scan - abdomen: image reviewed CT scan - chest: image reviewed CT scan - pelvis: image reviewed Additional studies: Procedures Closed [endoscopic] biopsy of large intestine (08/26/13) Assessment and Plan (1) Metastatic cancer Metastatic adenocarcinoma of [place] primary. Currently been treated with gemcitabine and cisplatin. I will ask the patient continue follow-up with Dr. Vance tomorrow. (2) GI bleeding Clinically, patient has a relatively stable vitals. However the heart rate is slightly higher. Patient's hematocrit and hemoglobin level have improved compared to levels from last night. However it felt short after 2 units of blood transfusion. I would expect higher level than the current hemoglobin and hematocrit level. In addition patient's platelet counts have dropped dramatically from 95 yesterday to 26 today. I talked with the patient that first of all we do not know if the patient still is experiencing active bleeding. Second the platelet counts are decreasing rapidly. We do not know what would be the next platelet count in several hours. It may very well well below 10,000. Therefore I think he is at increased risk of continued bleeding. I will proceed with platelet transfusion 1 6-pack today. I will have the patient come back tomorrow morning to repeat the CBC and follow-up with Dr. Lopez
[2017-12-05 09:55] VITALS: BP 114/69; PULSE 94; RESP 22; TEMP 37; O2SAT 90
--- NOTE | 2017-12-06 13:33 | ONC.NAV ---
Description: T/C re: coping and care coordination Activity: Left pt's , Jennifer, a message that I was calling to check-in with her after yesterday's provider visit, wanted to offer support and assist with any remaining care coordination or questions that they may have regarding transitioning to hospice. Encouraged her call.
--- NOTE | 2017-12-13 13:28 | PC.NURSE ---
called requesting refills on lasix and zofran. Pt is still in the transition process for hospice and has run out of both of these. He was verbally told to increase his lasix from 40mg po qd to 80mg po qd so he will need an new Rx. His zofran has not changed. [facility]erred [facility]
== END 2017-12-06 12:00 | disposition home or self-care (01) ==
PROVIDERS: Internal Medicine Hematology & Oncology; Nurse Practitioner Gerontology; PCP Family Medicine; Visit Provider Internal Medicine Hematology & Oncology
DX: C80.1 Malignant (primary) neoplasm, unspecified (principal); C78.7 Secondary malignant neoplasm of liver and intrahepatic bile duct; K92.2 Gastrointestinal hemorrhage, unspecified
CPT/HCPCS: 36430; 36592; 80053; 82105; 82378; 83615; 83735; 85025; 86301; 86644; 86850; 86900; 86901; 96361; 96367; 96374; 96375; 96413; 96417; 99205; 99211; 99214; 99215; P9016; J1100; J1453; J1940; J2150; J2405; J3475; J3480; J9060; J9201; P9035; Q0162

== ENCOUNTER → 2017-12-19 16:25 | Outpatient (REF) | payer MEDICARE, OTHER, SELFPAY ==
[2017-12-19 16:56] LABS: Add Manual Diff / Slide Review NO; Basophils Percent Auto 0.6 % (0-2); Eosinophils Percent Auto 0.7 % (2-4); Hematocrit 28.3 % (41-53); Hemoglobin 8.8 g/dL (13.5-17.5); Lymphocytes Percent Auto 7.2 % (25-40); Mean Corpuscular HGB Conc 31.3 % (30-36); Mean Corpuscular Hemoglobin 33.3 PG (26-34); Mean Corpuscular Volume 106.3 fL (80-100); Monocytes Percent Auto 8.7 % (3-14); Neutrophils Absolute Auto 13800 /uL (3000-5900); Neutrophils Percent Auto 82.8 % (50-75); Platelet Count 78 X10^3/uL (150-400); Red Blood Cell Count 2.66 X10^6/uL (4.5-5.9); Red Cell Distribution Width 22.6 % (11.6-14.8); White Blood Cell Count 16.7 X10^3/uL (4.5-11.0)
[2017-12-19 17:12] LABS: BUN Creatinine Ratio 34.4 (6-22); Blood Urea Nitrogen 31 mg/dL (9-20); Calcium 7.3 mg/dL (8.4-10.2); Chloride 86 mmol/L (98-107); Estimated Glomerular Filt Rate > 60.0 mL/min (>60); Glucose 97 mg/dL (80-110); HEMOLYSIS < 15 (0-50); Sodium 136 mmol/L (137-145)
[2017-12-19 17:32] LABS: Carbon Dioxide 45 mmol/L (22-32)
[2017-12-19 17:39] LABS: Anisocytosis 3+; Hypochromasia 1+
[2017-12-19 17:40] LABS: Dimorphic RBC YES; Macrocytosis 3+; Microcytosis 1+
[2017-12-19 17:41] LABS: Polychromasia 1+
== END ==
LOC: LAB 16:25
PROVIDERS: PCP Family Medicine; Visit Provider Family Medicine
DX: C80.1 Malignant (primary) neoplasm, unspecified (principal)
CPT/HCPCS: 80048; 85025